=== PATIENT | female | born 1960 | race Hispanic/Latino ===

== ENCOUNTER 2019-03-05 13:13 | Emergency (ER) | payer SELFPAY ==
--- OUTSIDE RECORDS SUMMARY | 2019-03-05 13:15 | XMS REPORT ---
:1960 Author Organization [facility] Address [address] [place] [address] Dr. Estrada [address] [place] [id number] Care Team Providers Name Role Phone Unavailable Unavailable Unavailable Problems This patient has no known problems. Allergies, Adverse Reactions, Alerts This patient has no known allergies or adverse reactions. Medications This patient has no known medications.
[2019-03-05] MEDS ORDERED: HYDROCODONE/APAP 5/325 MG TAB ONE (13:38)
[2019-03-05] MEDS ORDERED: DIAZEPAM 2 MG TABLET ONE (13:39)
[2019-03-05] MEDS ORDERED: AMOX/K CLAV 875 MG TAB ONE ×2 (13:39→14:31)
[2019-03-05] MEDS ORDERED: TETANUS & DIPHTHERIA TOX,ADULT 0.5 ML VIAL ONE (13:40)
--- NOTE | 2019-03-05 14:11 | RAD REPORT ---
EXAM DESCRIPTION: RAD - Hand Right 3 View - 03/05/2019 2:03 pm CLINICAL HISTORY: PAIN Animal bite COMPARISON: No comparisons FINDINGS: No fracture or radiopaque foreign body is identified. No aggressive marrow lesion.
--- NOTE | 2019-03-05 14:57 | ER ---
Nurse's Notes [facility] Name: Helen Richardson Age: 58 yrs Sex: Female : 1960 Arrival Date: 03/05/2019 Time: 13:11 Bed 2 Private MD: Diagnosis: Unspecified injury of head;Fall on same level, unspecified;Bitten by dog;Laceration without foreign body of lower leg-upper right thigh, lateral thigh;Sprain of other part of right wrist and hand Presentation: 03/05 13:12 Presenting complaint: Patient states: was bitten by a dog on the RLE. Transition of sg care: patient was not received from another setting of care. Onset of symptoms was March 05, 2019. Risk Assessment: Do you want to hurt yourself or someone else? Patient reports no desire to harm self or others. Initial Sepsis Screen: Does the patient meet any 2 criteria? No. Patient's initial sepsis screen is negative. Does the patient have a suspected source of infection? No. Patient's initial sepsis screen is negative. Care prior to arrival: None. 13:12 Method Of Arrival: EMS: [facility] sg 13:12 Acuity: YOGESH 4 sg Historical: - Allergies: 13:18 No Known Allergies; sg - Home Meds: 13:18 Lisinopril Oral [Active]; sg - PMHx: 13:18 Hypertension; sg - PSHx: 13:18 None; sg - Immunization history:: Adult Immunizations not up to date, Last tetanus immunization: unknown. - Social history:: Smoking status: Patient/guardian denies using tobacco. - Ebola Screening: : Patient negative for fever greater than or equal to 101.5 degrees Fahrenheit, and additional compatible Ebola Virus Disease symptoms Patient denies exposure to infectious person Patient denies travel to an Ebola-affected area in the 21 days before illness onset No symptoms or risks identified at this time. Screenin:18 Abuse screen: Denies threats or abuse. Denies injuries from another. Nutritional sg screening: No deficits noted. Tuberculosis screening: No symptoms or risk factors identified. Never had TB. Fall Risk None identified. Assessment: 13:18 General: Appears in no apparent distress. well groomed, well developed, well nourished, sg Behavior is calm, cooperative, appropriate for age, drowsy. Pain: Complains of pain in lateral aspect of right thigh and right upper thigh Quality of pain is described as throbbing. Neuro: Level of Consciousness is awake, alert, obeys commands, Oriented to person, place, time, Dining Chair Seat Cushion Trimmer are equal bilaterally Moves all extremities. Speech is normal, Facial symmetry appears normal. Cardiovascular: Capillary refill is brisk in bilateral fingers Patient's skin is warm and dry. Chest pain is denied. Respiratory: Airway is patent Respiratory effort is even, unlabored, Respiratory pattern is regular, symmetrical. GI: No signs and/or symptoms were reported involving the gastrointestinal system. : No signs and/or symptoms were reported regarding the genitourinary system. EENT: No signs and/or symptoms were reported regarding the EENT system. Derm: Skin is healthy with good turgor, Skin is pink, warm \T\ dry. Wound noted lateral aspect of right thigh and right upper thigh Wound is dirty, dried blood noted to the wound. Musculoskeletal: Circulation, motion, and sensation intact. Range of motion: intact in all extremities, Swelling absent. Injury Description: Abrasion sustained to right upper thigh Bruise sustained to lateral aspect of right thigh and right upper thigh is purple, was sustained 30-60 minutes ago. Laceration sustained to lateral aspect of right thigh. Vital Signs: 13:18 Pulse 92; Resp 18; Temp 97.7; Pulse Ox 98% on R/A; Pain 8/10; sg 13:18 BP 159 / 86; sg ED Course: 13:11 Patient arrived in ED. sg 13:11 Destiny Grant FNP-C [facility]. snw 13:11 Jean Cho MD is Attending Physician. snw 13:11 Arm band placed on. sg 13:12 Triage completed. sg 13:18 Patient has correct armband on for positive identification. Bed in low position. Call sg light in reach. Side rails up X2. Pulse ox on. NIBP on. Warm blanket given. Head of bed elevated. 14:03 Hand Right 3 View XRAY In Process Unspecified. EDMS 14:35 Heriberto Cox, [place] is Primary Nurse. sg 14:52 Assist provider with laceration repair on lateral aspect of right thigh that was 2.5 sg cm. or less using pablo. Patient tolerated well. Dressings: non-adherent dressing x 1 right upper thigh. Velcro wrist splint applied to right wrist. Wound care: to laceration located on lateral aspect of right thigh was cleaned with Hibiclens, Patient tolerated well. 15:00 Patient did not have IV access during this emergency room visit. sg Administered Medications: 13:35 Drug: Hibiclens 4 % 1 application Route: Topical; Site: right thigh; sg 13:35 Drug: Valium 2 mg Route: PO; sg 13:35 Drug: [place] 5 mg-325 mg 1 tabs Route: PO; sg 13:40 Drug: Tetanus-Diphtheria Toxoid Adult 0.5 ml {Window Glazier: [employer]. Exp: sg 03/06/2021. Lot #: [id number]. } Route: IM; Site: left deltoid; 13:45 Drug: Augmentin 875 mg Route: PO; sg Outcome: 14:57 Discharge ordered by . snw 15:15 Discharged to home ambulatory, with family. sg 15:15 Condition: good 15:15 Discharge instructions given to patient, Instructed on discharge instructions, follow up and referral plans. medication usage, safety practices, wound care, Demonstrated understanding of instructions, follow-up care, medications, wound care, Prescriptions given X 2. 15:19 Patient left the ED. sg Signatures: Dispatcher [employer] EDHeriberto Potts RN RN Destiny Ortiz, FIBER DESIGNER-C FIBER DESIGNER-Csnw
--- NOTE | 2019-03-05 14:58 | EDPHYS ---
Physician Documentation [facility] Name: Helen Richardson Age: 58 yrs Sex: Female : 1960 Arrival Date: 03/05/2019 Time: 13:11 Bed 2 Private MD: Jean Lai HPI: 03/05 14:00 This 58 yrs old Female presents to ER via EMS with complaints of Dog Bite. snw 14:00 The patient was bitten on the right femoral area and right hip, by a dog, while trying snw to stop animals from fighting, at home. Onset: The symptoms/episode began/occurred suddenly, just prior to arrival. Animal information: The animal was reported to appear healthy. The animal is known and can be quarantined, Animal control has been notified. Secondary to the bite the patient reports an abrasion, a contusion, pain. Associated signs and symptoms: Pertinent positives: tenderness to occiput and right thumb s/p being pushed backward inside of home. Severity of symptoms: At their worst the symptoms were moderate. The patient has not experienced similar symptoms in the past. It is unknown whether or not the patient has recently seen a physician. Historical: - Allergies: 13:18 No Known Allergies; sg - Home Meds: 13:18 Lisinopril Oral [Active]; sg - PMHx: 13:18 Hypertension; sg - PSHx: 13:18 None; sg - Immunization history:: Adult Immunizations not up to date, Last tetanus immunization: unknown. - Social history:: Smoking status: Patient/guardian denies using tobacco. - Ebola Screening: : Patient negative for fever greater than or equal to 101.5 degrees Fahrenheit, and additional compatible Ebola Virus Disease symptoms Patient denies exposure to infectious person Patient denies travel to an Ebola-affected area in the 21 days before illness onset No symptoms or risks identified at this time. ROS: 13:58 Eyes: Negative for injury, pain, redness, and discharge, ENT: Negative for injury, snw pain, and discharge, Neck: Negative for injury, pain, and swelling, Cardiovascular: Negative for chest pain, palpitations, and edema, Respiratory: Negative for shortness of breath, cough, wheezing, and pleuritic chest pain, Abdomen/GI: Negative for abdominal pain, nausea, vomiting, diarrhea, and constipation, Back: Negative for injury and pain, : Negative for injury, bleeding, discharge, and swelling, Neuro: Negative for headache, weakness, numbness, tingling, and seizure, no LOC, dog pushed pt down and she struck occiput on floor 13:58 Constitutional: Positive for body aches. 13:58 MS/extremity: Positive for injury or acute deformity, pain, swelling, tenderness, of the lateral aspect of right hand. 13:58 Skin: Positive for dogbite to right upper and lateral thigh. Exam: 13:55 Head/Face: Normocephalic, atraumatic. Eyes: Pupils equal round and reactive to light, snw extra-ocular motions intact. Lids and lashes normal. Conjunctiva and sclera are non-icteric and not injected. Cornea within normal limits. Periorbital areas with no swelling, redness, or edema. ENT: Nares patent. No nasal discharge, no septal abnormalities noted. Tympanic membranes are normal and external auditory canals are clear. Oropharynx with no redness, swelling, or masses, exudates, or evidence of obstruction, uvula midline. Mucous membranes moist. Neck: Trachea midline, no thyromegaly or masses palpated, and no cervical lymphadenopathy. Supple, full range of motion without nuchal rigidity, or vertebral point tenderness. No Meningismus. Chest/axilla: Normal chest wall appearance and motion. Nontender with no deformity. No lesions are appreciated. Cardiovascular: Regular rate and rhythm with a normal S1 and S2. No gallops, murmurs, or rubs. Normal PMI, no JVD. No pulse deficits. Respiratory: Lungs have equal breath sounds bilaterally, clear to auscultation and percussion. No rales, rhonchi or wheezes noted. No increased work of breathing, no retractions or nasal flaring. Abdomen/GI: Soft, non-tender, with normal bowel sounds. No distension or tympany. No guarding or rebound. No evidence of tenderness throughout. Back: No spinal tenderness. No costovertebral tenderness. Full range of motion. Neuro: Awake and alert, GCS 15, oriented to person, place, time, and situation. Cranial nerves II-XII grossly intact. Motor strength 5/5 in all extremities. Sensory grossly intact. Cerebellar exam normal. Normal gait. Psych: Awake, alert, with orientation to person, place and time. Behavior, mood, and affect are within normal limits. 13:55 Constitutional: The patient appears alert, anxious, uncomfortable. 13:55 Musculoskeletal/extremity: Extremities: grossly normal except: noted in the lateral aspect of right hand: contusion, decreased ROM, ecchymosis, swelling, tenderness. 13:55 Skin: Appearance: normal except for affected area, Color: normal in color, injury, contusion(s), laceration(s), the wound is approximately 3 cm(s), with a depth of 2 cm(s), of the lateral aspect of right thigh, the second wound is approximately 2 cm(s), with a depth of .5 cm(s), of the right upper thigh. Vital Signs: 13:18 Pulse 92; Resp 18; Temp 97.7; Pulse Ox 98% on R/A; Pain 8/10; sg 13:18 BP 159 / 86; sg MDM: 13:12 Patient medically screened. snw 15:00 Data reviewed: vital signs, nurses notes. Data interpreted: Pulse oximetry: on room air snw is 98 %. Interpretation: normal. Counseling: I had a detailed discussion with the patient and/or guardian regarding: the historical points, exam findings, and any diagnostic results supporting the discharge/admit diagnosis, the presence of at least one elevated blood pressure reading (>120/80) during this emergency department visit, lab results, radiology results, the need for outpatient follow up, to return to the emergency department if symptoms worsen or persist or if there are any questions or concerns that arise at home. Response to treatment: the patient's symptoms have mildly improved after treatment. Special discussion: I have referred the patient to see his PCP for further evaluation of high blood pressure. I discussed in detail with the patient the higher chance of wound infection based on his presenting history. Based on the history and exam findings, there is no indication for further emergent testing or inpatient evaluation. I discussed with the patient/guardian the need to see the primary care provider for further evaluation of the symptoms. 03/05 13:27 Order name: Hand Right 3 View XRAY; Complete Time: 14:14 snw 03/05 14:14 Order name: Thumb Spica Splint: velcro (right); Complete Time: 15:14 snw Administered Medications: 13:35 Drug: Hibiclens 4 % 1 application Route: Topical; Site: right thigh; sg 13:35 Drug: Valium 2 mg Route: PO; sg 13:35 Drug: Energy 5 mg-325 mg 1 tabs Route: PO; sg 13:40 Drug: Tetanus-Diphtheria Toxoid Adult 0.5 ml {Special Needs Tutor: [employer]. Exp: sg 03/06/2021. Lot #: [id number]. } Route: IM; Site: left deltoid; 13:45 Drug: Augmentin 875 mg Route: PO; sg Disposition: 16:41 Co-signature as Attending Physician, Jean Cho MD I agree with the assessment and kat plan of care. Disposition: 03/05/19 14:57 Discharged to Home. Impression: Unspecified injury of head, Fall on same level, unspecified, Bitten by dog, Laceration without foreign body of lower leg - upper right thigh, lateral thigh, Sprain of other part of right wrist and hand. - Condition is Stable. - Discharge Instructions: Delayed Wound Closure, Fall Prevention in the Home, Laceration Care, Adult, Stitches, [place], or Adhesive Wound Closure, Wound Infection, VIS, Tetanus, Diphtheria (Td) - CDC, Wound Care, Head Injury, Adult, Oald-mv-Ziil, Animal Bite. - Prescriptions for Augmentin 875- 125 mg Oral Tablet - take 1 tablet by ORAL route every 12 hours for 10 days; 20 tablet. Diclofenac Sodium 75 mg Oral Tablet Sustained Release - take 1 tablet by ORAL route 2 times per day; 30 tablet. - Work release form, Medication Reconciliation Form, Thank You Letter, Antibiotic Education, Prescription Opioid Use form. - Follow up: Private Physician; When: 2 - 3 days; Reason: Recheck today's complaints, Re-evaluation by your physician. Follow up: Emergency Department; When: 10 - 14 days; Reason: Staple/Suture removal. Signatures: Dispatcher [employer] Heriberto Correia RN RN sg Anderson, Corey, MD MD cha Therrien, Shelly, RECONNAISSANCE MAN-C RECONNAISSANCE MAN-Csnw Shelli Gaston RN RN ss Corrections: (The following items were deleted from the chart) 14:59 14:57 03/05/2019 14:57 Discharged to Home. Impression: Unspecified injury of head; Fall snw on same level, unspecified; Bitten by dog; Laceration without foreign body of lower leg - upper right thigh, lateral thigh; Sprain of other part of right wrist and hand. Condition is Stable. Forms are Medication Reconciliation Form, Thank You Letter, Antibiotic Education, Prescription Opioid Use. Follow up: Emergency Department; When: As needed; Reason: Worsening of condition. Follow up: Private Physician; When: 2 - 3 days; Reason: Recheck today's complaints, Re-evaluation by your physician. snw 15:19 14:59 03/05/2019 14:57 Discharged to Home. Impression: Unspecified injury of head; Fall sg on same level, unspecified; Bitten by dog; Laceration without foreign body of lower leg - upper right thigh, lateral thigh; Sprain of other part of right wrist and hand. Condition is Stable. Discharge Instructions: Delayed Wound Closure, Fall Prevention in the Home, Laceration Care, Adult, Stitches, [place], or Adhesive Wound Closure, Wound Infection, VIS, Tetanus, Diphtheria (Td) - CDC, Wound Care, Head Injury, Adult, Fdja-ee-Nokt, Animal Bite. Prescriptions for Augmentin 875-125 mg Oral Tablet - take 1 tablet by ORAL route every 12 hours for 10 days; 20 tablet, Diclofenac Sodium 75 mg Oral Tablet Sustained Release - take 1 tablet by ORAL route 2 times per day; 30 tablet. and Forms are Medication Reconciliation Form, Thank You Letter, Antibiotic Education, Prescription Opioid Use, Work release form. Follow up: Private Physician; When: 2 - 3 days; Reason: Recheck today's complaints, Re-evaluation by your physician. Follow up: Emergency Department; When: 10 - 14 days; Reason: Staple/Suture removal. snw
[2019-03-05 15:34] VITALS: BP 159/86; TEMP 97.7; O2SAT 98
== END 2019-03-05 15:19 | disposition home or self-care (01) ==
LOC: ER 13:13
DX: S71.111A Laceration without foreign body, right thigh, initial encounter (principal); S63.501A Unspecified sprain of right wrist, initial encounter; S09.90XA Unspecified injury of head, initial encounter; W54.0XXA Bitten by dog, initial encounter; Y93.9 Activity, unspecified; Y92.9 Unspecified place or not applicable; W18.30XA Fall on same level, unspecified, initial encounter; Z23 Encounter for immunization; I10 Essential (primary) hypertension
CPT/HCPCS: 90471; 90714; 99284

== ENCOUNTER 2020-07-13 13:04 | Emergency (ER) | payer SELFPAY ==
--- OUTSIDE RECORDS SUMMARY | 2020-07-13 13:06 | XMS REPORT | Continuity of Care Document ---
:1960 Author Organization [facility] t Address [address] [place] [address] Care Team Providers Name Role Phone Doctor Unassigned, Name Attending Clinician Unavailable Problems This patient has no known problems. Allergies, Adverse Reactions, Alerts This patient has no known allergies or adverse reactions. Medications This patient has no known medications. Procedures This patient has no known procedures. Encounters Start End Encounter Admission Attending Care Care Encounter Source Date/Time Date/Time Type Type Clinicians Facility Department ID 2018-12-09 2018-12-09 Orders Doctor LINDSAY [id number] 00:00:00 00:00:00 Only UnassignedJEFE [id number] [facility] [id number] Results This patient has no known results.
[2020-07-13] MEDS ORDERED: LIDOCAINE 2% MPF 5 ML VIAL ONE (13:35)
--- NOTE | 2020-07-13 13:52 | ER ---
Nurse's Notes 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 Coronavirus ca1 screen: Client denies travel out of the [place] in the last 14 days. At this time, the client does not indicate any symptoms associated with coronavirus-19. Ebola Screen: Patient negative for fever greater than or equal to 101.5 degrees Fahrenheit, and additional compatible Ebola Virus Disease symptoms Patient denies exposure to infectious person. Patient denies travel to an Ebola-affected area in the 21 days before illness onset. No symptoms or risks identified at this time. Complicating Factors: There are no complicating factors for this patient. Initial Sepsis Screen: Does the patient meet any 2 criteria? No. Patient's initial sepsis screen is negative. Does the patient have a suspected source of infection? No. Patient's initial sepsis screen is negative. Risk Assessment: Do you want to hurt yourself or someone else? Patient reports no desire to harm self or others. Onset of symptoms was July 13, 2020. 13:14 Method Of Arrival: Ambulatory ca1 13:14 Acuity: YOGESH 4 ca1 Historical: - Allergies: 13:15 No Known Allergies; ca1 - PMHx: 13:15 Hypertension; High Cholesterol; ca1 - PSHx: 13:15 None; ca1 - Immunization history:: Client reports receiving the 1st dose of the Covid vaccine, Last tetanus immunization: < 5 years ago. - Social history:: Smoking status: Patient/guardian denies using tobacco. Screenin:42 Abuse screen: Denies threats or abuse. Denies injuries from another. Nutritional kg screening: No deficits noted. Tuberculosis screening: No symptoms or risk factors identified. Fall Risk None identified. No fall in past 12 months (0 pts). No secondary diagnosis (0 pts). No IV (0 pts). Ambulatory Aid- None/Bed Rest/Nurse Assist (0 pts). Gait- Normal/Bed Rest/Wheelchair (0 pts) Mental Status- Oriented to own ability (0 pts). Total Dockery Fall Scale indicates No Risk (0-24 pts). Assessment: 12:40 Injury Description: Laceration sustained to palmar aspect of middle phalanx of right kg little finger is clean, 0.5 to 2.5 cm long, bleeding moderately. 13:38 General: Appears uncomfortable, Behavior is calm, cooperative, appropriate for age, kg quiet. Pain: Complains of pain in palmar aspect of distal phalanx of right little finger, palmar aspect of middle phalanx of right little finger and Palmar aspect of proximal phalanx of right little finger Pain radiates to right hand Pain currently is 10 out of 10 on a pain scale. at worst was 10 out of 10 on a pain scale. level that patient reports is acceptable is 3 out of 10 on a pain scale. Quality of pain is described as aching, throbbing, Pain began 1 hour ago. Neuro: No deficits noted. Cardiovascular: No deficits noted. Respiratory: No deficits noted. GI: No deficits noted. : No deficits noted. EENT: No deficits noted. Derm: No deficits noted. Derm: Wound noted palmar aspect of middle phalanx of right little finger Wound is Laceration. Musculoskeletal: No deficits noted. 14:33 Reassessment: Patient appears in no apparent distress at this time. Patient and/or zb family updated on plan of care and expected duration. Pain level reassessed. Patient is alert, oriented x 3, equal unlabored respirations, skin warm/dry/pink. received verbal order to splint patients finger. patient also wanted medication for infection and pain. notified ecp and prescription ordered. Vital Signs: 13:16 Pulse 102; Resp 18 S; Temp 97.5(TE); Pulse Ox 98% on R/A; Weight 78.47 kg (R); Height 5 ca1 ft. 4 in. (162.56 cm) (R); Pain 10/10; 13:16 BP 130 / 76; ca1 13:16 Body Mass Index 29.70 (78.47 kg, 162.56 cm) ca1 ED Course: 13:06 Patient arrived in ED. rg4 13:08 Jean Vick PA is PHCP. cp 13:08 Malcolm White MD is Attending Physician. cp 13:15 Triage completed. ca1 13:15 Arm band placed on right wrist. ca1 13:26 Serena Ortiz is Primary Nurse. kg 13:42 Patient has correct armband on for positive identification. Bed in low position. Call kg light in reach. Side rails up X 1. Adult w/ patient. 14:34 Kwaku wrap to palmar aspect of distal phalanx of right little finger. zb 14:36 No provider procedures requiring assistance completed. Patient did not have IV access zb during this emergency room visit. Administered Medications: 13:26 Drug: Lidocaine (1 %) 5 ml Volume: 5 ml; Route: Infiltration; kg Outcome: 13:51 Discharge ordered by MD. cp 14:36 Discharged to home ambulatory, with family. zb 14:36 Condition: stable 14:36 Discharge instructions given to patient, family, Instructed on discharge instructions, follow up and referral plans. medication usage, Demonstrated understanding of instructions, follow-up care, medications, Prescriptions given X 2. 14:36 Patient left the ED. zb Signatures: Jean Vick PA PA cp Garcia, Rubi rg4 Grisel Higgins RN RN ca1 Jennifer Hernandes RN RN zb Serena Ortiz kg
--- NOTE | 2020-07-13 13:52 | EDPHYS ---
Physician Documentation [facility] Name: Helen Richardson Age: 59 yrs Sex: Female : 1960 Arrival Date: 07/13/2020 Time: 13:06 Bed 16 Private MD: ED Physician Malcolm White HPI: 07/13 13:20 This 59 yrs old Female presents to ER via Ambulatory with complaints of cp Laceration To Hand. 13:20 The patient has a laceration occurred at home, and there are no complicating factors. cp The laceration(s) is(are) located on the Palmar aspect of proximal phalanx of right little finger. Onset: The symptoms/episode began/occurred just prior to arrival. Historical: - Allergies: 13:15 No Known Allergies; ca1 - PMHx: 13:15 Hypertension; High Cholesterol; ca1 - PSHx: 13:15 None; ca1 - Immunization history:: Client reports receiving the 1st dose of the Covid vaccine, Last tetanus immunization: < 5 years ago. - Social history:: Smoking status: Patient/guardian denies using tobacco. ROS: 13:25 Skin: Positive for laceration(s), of the Palmar aspect of proximal phalanx of right cp little finger. 13:25 All other systems are negative. cp Exam: 13:33 Constitutional: The patient appears in no acute distress, alert, awake, well developed, cp well nourished. 13:33 Head/Face: Normocephalic, atraumatic. cp 13:33 Chest/axilla: Inspection: normal. 13:33 Cardiovascular: Rate: tachycardic. 13:33 Respiratory: the patient does not display signs of respiratory distress, Respirations: normal, no use of accessory muscles. 13:33 Musculoskeletal/extremity: ROM: full active range of motion, in the right small finger, Perfusion: the extremity is normally perfused throughout, Sensation intact. Tendon exam: specific tendon testing normal through active and passive range of motion 13:33 Skin: injury, laceration(s), the wound is approximately 1.5 cm(s), of the Palmar aspect of proximal phalanx of right little finger, that can be described as clean, no foreign body, linear, with mild bleeding. Vital Signs: 13:16 Pulse 102; Resp 18 S; Temp 97.5(TE); Pulse Ox 98% on R/A; Weight 78.47 kg (R); Height 5 ca1 ft. 4 in. (162.56 cm) (R); Pain 10/10; 13:16 BP 130 / 76; ca1 13:16 Body Mass Index 29.70 (78.47 kg, 162.56 cm) ca1 Laceration: 13:43 Wound Repair of 1.5cm ( 0.6in ) subcutaneous laceration to Palmar aspect of proximal cp phalanx of right little finger. Linear shaped.. Distal neuro/vascular/tendon intact. Anesthesia: Wound infiltrated with 2 mls of 2% lidocaine. Wound prep: Simple cleansing by me, Wound irrigation by me. Skin closed with 2 5-0 Prolene using simple sutures and sterile technique. Dressed with Bacitracin. Patient tolerated well. MDM: 13:15 Patient medically screened. cp 13:35 Differential diagnosis: superficial laceration, tendon injury, vascular injury. cp 13:35 Counseling: I had a detailed discussion with the patient and/or guardian regarding: the historical points, exam findings, and any diagnostic results supporting the discharge/admit diagnosis, to return to the emergency department if symptoms worsen or persist or if there are any questions or concerns that arise at home. Response to treatment: the patient's symptoms have markedly improved after treatment, and as a result, I will discharge patient. 13:46 Data reviewed: vital signs, nurses notes. 07/13 13:16 Order name: Dressing - Wound; Complete Time: 14:18 07/13 13:16 Order name: Gloves, Sterile; Complete Time: 14:18 07/13 13:16 Order name: Setup Suture Tray; Complete Time: 14:18 Administered Medications: 13:26 Drug: Lidocaine (1 %) 5 ml Volume: 5 ml; Route: Infiltration; kg Disposition: 14:00 Chart complete. 16:13 Co-signature as Attending Physician, Malcolm White MD. rn Disposition: 07/13/20 13:51 Discharged to Home. Impression: Laceration without foreign body of finger without damage to nail - right fifth finger. - Condition is Stable. - Discharge Instructions: Laceration Care, Adult. - Prescriptions for Keflex 500 mg Oral Capsule - take 1 capsule by ORAL route every 8 hours for 7 days; 21 capsule. Naprosyn 500 mg Oral Tablet - take 1 tablet by ORAL route 2 times per day take with food; 30 tablet. - Medication Reconciliation Form, Thank You Letter, Antibiotic Education, Prescription Opioid Use form. - Follow up: Private Physician; When: 1 week; Reason: Staple/Suture removal. - Problem is new. - Symptoms have improved. Signatures: Malcolm White MD MD rn Page, Corey, PA PA cp Acob, Cheryl, RN RN ca1 Brown, Zipporah, RN RN zb Graham, Kristen kg Corrections: (The following items were deleted from the chart) 14:36 13:51 07/13/2020 13:51 Discharged to Home. Impression: Laceration without foreign body zb of finger without damage to nail - right fifth finger. Condition is Stable. Forms are Medication Reconciliation Form, Thank You Letter, Antibiotic Education, Prescription Opioid Use. Follow up: Private Physician; When: 1 week; Reason: Staple/Suture removal. Problem is new. Symptoms have improved. cp
[2020-07-13 14:42] VITALS: BP 130/76; TEMP 97.5; O2SAT 98
== END 2020-07-13 14:36 | disposition home or self-care (01) ==
LOC: ER 13:04
PROC: 0JQJ0ZZ Repair Right Hand Subcutaneous Tissue and Fascia, Open Approach (ICD-10-PCS; principal; 2020-07-13)
DX: S61.216A Laceration without foreign body of right little finger without damage to nail, initial encounter (principal); I10 Essential (primary) hypertension; W45.8XXA Other foreign body or object entering through skin, initial encounter; Y92.009 Unspecified place in unspecified non-institutional (private) residence as the place of occurrence of the external cause
CPT/HCPCS: 99283

== ENCOUNTER 2023-06-27 10:37 | Emergency (ER) | payer SELFPAY ==
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
[2023-06-27] MEDS ORDERED: ONDANSETRON 4 MG/2 ML VIAL ONE (11:20)
[2023-06-27] MEDS ORDERED: KETOROLAC 30 MG/ML INJ ONE (11:20)
[2023-06-27] MEDS ORDERED: NA CHLORIDE 0.9% 1,000 ML ONE (11:20)
[2023-06-27 11:22] LABS: Absolute Basophils 0.1 K/uL (0-0.5); Absolute Eosinophils 0.1 K/uL (0-0.5); Absolute Lymphocytes (CBC) 1.3 K/uL (0.7-4.9); Absolute Monocytes 0.6 K/uL (0.1-1.3); Basophils % 0.6 % (0-1.3); Hematocrit 35.7 % (36.0-45.0); Hemoglobin 11.4 g/dL (12.0-15.0); Lymphocytes % 10.6 % (15.3-44.8); MCHC 31.9 g/dL (32.0-36.0); MCV 81.6 fL (80-100); MPV 7.4 fL (7.6-11.3); Monocytes % 5.2 % (3.3-12.3); Neutrophils % 82.6 % (41.7-73.7); Platelets 413 thou/uL (152-406); RBC Red Blood Cell Count 4.38 M/uL (3.86-4.86)
[2023-06-27 11:41] LABS: Albumin 3.2 g/dL (3.4-5.0); Albumin/Globulin Ratio 0.8 (1.1-1.8); Anion Gap 6.8 mEq/L (5.0-15.0); Bilirubin Total 0.8 mg/dL (0.2-1.0); Globulin 4.2 g/dL (2.3-3.5); Potassium 3.8 mEq/L (3.5-5.1); Protein, Total 7.4 g/dL (6.4-8.2); Troponin High Sensitivity 3.6 pg/mL (<58.9)
[2023-06-27 11:43] LABS: Specific Gravity 1.027 (1.005-1.030); Sqamous Epithelial <5 /HPF (None Seen); Urine Bacteria None Seen /HPF (<20); Urine Bilirubin NEGATIVE (Negative); Urine Blood 1+ (Negative); Urine Clarity Clear (Clear); Urine Color Yellow (Yellow); Urine Culture Reflex Order NOT NEEDED; Urine Glucose NEGATIVE (Negative); Urine Ketones NEGATIVE (Negative); Urine Microscopic Reflex YN ORDER UMIC; Urine Mucus 2+ /HPF (None Seen); Urine Nitrite NEGATIVE (Negative); Urine Protein TRACE (Negative); Urine Urobilinogen 1+ (Normal); Urine WBC <5 /HPF (<5)
--- NOTE | 2023-06-27 12:23 | RAD REPORT ---
EXAM DESCRIPTION: RAD - Chest Single View - 06/27/2023 11:59 am CLINICAL HISTORY: CHEST PAIN COMPARISON: CHEST SINGLE VIEW dated 07/11/2013; CHEST PA AND LAT 2 VIEW dated 02/16/2013; CHEST SINGL E VIEW dated 12/10/2011 FINDINGS: Lines: None. Lungs: No evidence of edema or pneumonia. Pleural: No significant pleural effusions or pneumothorax. Cardiac: The heart size is within normal limits. Mediastinum: Within normal limits. Bones: No acute fractures. Other: None IMPRESSION: No acute cardiopulmonary disease.
--- NOTE | 2023-06-27 12:50 | RAD REPORT ---
EXAM DESCRIPTION: CTAbdomen Pelvis W Contrast - 06/27/2023 12:42 pm CLINICAL HISTORY: Abdominal pain. ABD PAIN COMPARISON: No comparisons TECHNIQUE: Biphasic CT imaging of the abdomen and pelvis was performed with 100 ml non-ionic IV cont rast. All CT scans are performed using dose optimization technique as appropriate and may include automated exposure control or mA/KV adjustment according to patient size. FINDINGS: The lung bases are clear.Small hiatal hernia. The liver contains innumerable low-density masses likely representing metastatic disease. The largest is in the right lobe measuring 4.2 cm. The spleen, pancreas, adrenal glands and kidneys are within n ormal limits. No bowel obstruction, free air, free fluid or abscess. The appendix is normal. Irregular mass is joseph pected measuring approximately 4 cm involving the rectosigmoid colon. Multiple small lymph nodes are seen surrounding the irregular rectosigmoid mass. No suspicious bony findings. IMPRESSION: Approximate 4 cm irregular rectosigmoid mass is suspected. This is most compatible with malignancy. There is extensive liver metastatic disease. Recommend followup colonoscopy for further evaluation.
[2023-06-27 12:58] LABS: SARS-CoV-2 Antigen CONTROL BLUE LINE VIS/BG OK; SARS-CoV-2 Antigen Rapid Res Negative (Negative)
--- NOTE | 2023-06-27 14:05 | ER ---
Nurse's Notes [facility] Name: Helen Richardson Age: 62 yrs Sex: Female : 1960 Arrival Date: 06/27/2023 Time: 10:37 Bed 15 Private MD: Diagnosis: Rectal mass Presentation: 06/26 10:44 Chief complaint: Patient states: feels terrible, had fever , having diarrhea , iw everything hurts when I breath, my back, shoulders hurt when I breathe , feels dizzy , this started last year , symptoms got worse yesterday. Coronavirus screen: At this time, the client does not indicate any symptoms associated with coronavirus-19. Ebola Screen: Patient negative for fever greater than or equal to 101.5 degrees Fahrenheit, and additional compatible Ebola Virus Disease symptoms Patient denies exposure to infectious person. Patient denies travel to an Ebola-affected area in the 21 days before illness onset. No symptoms or risks identified at this time. Initial Sepsis Screen: Does the patient meet any 2 criteria? No. Patient's initial sepsis screen is negative. Does the patient have a suspected source of infection? No. Patient's initial sepsis screen is negative. Risk Assessment: Do you want to hurt yourself or someone else? Patient reports no desire to harm self or others. Onset of symptoms was June 26, 2023. 10:44 Method Of Arrival: Ambulatory iw 10:44 Acuity: YOGESH 3 iw Historical: - Allergies: 10:47 No Known Allergies; iw - PMHx: 10:47 High Cholesterol; Hypertension; iw - PSHx: 10:47 None; iw - Immunization history:: Adult Immunizations up to date, . - Infectious Disease History:: Denies. - Social history:: Smoking status: Patient denies any tobacco usage or history of. - Family history:: not pertinent. Screenin:24 [facility] ED Fall Risk Assessment (Adult) History of falling in the last 3 months, ld1 including since admission No falls in past 3 months (0 pts). Abuse screen: Denies threats or abuse. Denies injuries from another. Nutritional screening: No deficits noted. Tuberculosis screening: No symptoms or risk factors identified. Assessment: 12:00 Reassessment: Patient appears in no apparent distress at this time. No changes from ld1 previously documented assessment. Patient and/or family updated on plan of care and expected duration. Pain level reassessed. 13:45 Reassessment: Patient appears in no apparent distress at this time. No changes from ld1 previously documented assessment. Patient and/or family updated on plan of care and expected duration. Pain level reassessed. 14:24 Reassessment: Patient appears in no apparent distress at this time. No changes from ld1 previously documented assessment. Patient and/or family updated on plan of care and expected duration. Pain level reassessed. Vital Signs: 10:44 BP 125 / 74; Pulse 86; Resp 16; Temp 98.4; Pulse Ox 100% on R/A; iw 12:00 BP 132 / 72; Pulse 77; Resp 18; Pulse Ox 100% on R/A; ld1 13:45 BP 129 / 77; Pulse 84; Resp 18; Pulse Ox 100% on R/A; ld1 ED Course: 10:38 Patient arrived in ED. rg4 10:47 Triage completed. iw 10:48 Arm band placed on. iw 10:50 Gino Hollins MD is Attending Physician. rt 11:19 Influenza Screen (a \T\ B) Sent. bc6 11:19 SARS RAPID Sent. bc6 11:19 Troponin HS Sent. bc6 11:19 CBC with Diff Sent. bc6 11:19 CMP Sent. bc6 11:19 Lipase Sent. bc6 11:19 Initial lab(s) drawn, by me, sent to lab. Inserted saline lock: 20 gauge in right bc6 antecubital area, using aseptic technique. Blood collected. 11:26 Christy Thomson, RN is Primary Nurse. ld1 12:00 XRAY Chest (1 view) In Process Unspecified. EDMS 12:43 CT Abd/Pelvis - IV Contrast Only In Process Unspecified. EDMS 14:03 Barry Rankin MD is Referral Physician. rt 14:24 Patient has correct armband on for positive identification. Placed in gown. Bed in low ld1 position. Call light in reach. Side rails up X2. shaper operator on. Pulse ox on. NIBP on. Door closed. Noise minimized. Warm blanket given. 14:24 No provider procedures requiring assistance completed. IV discontinued, intact, ld1 bleeding controlled, No redness/swelling at site. Administered Medications: 11:26 Drug: NS 0.9% IV 1000 ml IV at 1 bolus Per protocol; 1000 mL bolus Route: IV; Rate: 1 ld1 bolus; Site: right antecubital; 11:26 Drug: TORadol - Ketorolac IVP 15 mg IVP once Route: IVP; Site: right antecubital; ld1 11:26 Drug: Ondansetron IVP 4 mg IVP once; over 2 minutes Route: IVP; Site: right antecubital;ld1 Medication: 14:25 VIS not applicable for this client. ld1 Outcome: 14:05 Discharge ordered by . rt 14:24 Discharged to home ambulatory, ld1 14:24 Condition: stable 14:24 Discharge instructions given to patient, Instructed on discharge instructions, follow up and referral plans. Demonstrated understanding of instructions, follow-up care, 14:25 Patient left the ED. ld1 Signatures: Dispatcher [employer] Emperatriz Perez RN RN iw Garcia, Rubi rg4 Christy Thomson RN RN ld1 Gino Hollins MD MD rt Joi Smart bc6 Corrections: (The following items were deleted from the chart) 10:48 10:47 PMHx: Anxiety; iw iw
--- NOTE | 2023-06-27 14:05 | EDPHYS ---
Physician Documentation [facility] Name: Helen Richardson Age: 62 yrs Sex: Female : 1960 Arrival Date: 06/27/2023 Time: 10:37 Bed 15 Private MD: ED Physician Gino Hollins HPI: 06/26 14:56 This 62 yrs old Female presents to ER via Ambulatory with complaints of Pain rt when Breathing. 14:56 Patient presents to the ED with multiple complaints have been present for about a year. rt Patient reports pain with taking a deep breath, mild shortness of breath and dizziness. Reports that she has had a diarrhea with intermittent abdominal pain, occasionally has blood in the stools. Denies other acute complaints at this time, symptoms are moderate in severity, no other aggravating or alleviating factors.. Historical: - Allergies: 10:47 No Known Allergies; iw - PMHx: 10:47 High Cholesterol; Hypertension; iw - PSHx: 10:47 None; iw - Immunization history:: Adult Immunizations up to date, . - Infectious Disease History:: Denies. - Social history:: Smoking status: Patient denies any tobacco usage or history of. - Family history:: not pertinent. ROS: 14:56 Constitutional: Negative for fever, chills, and weight loss, Cardiovascular: Negative rt for chest pain, palpitations, and edema, MS/Extremity: Negative for injury and deformity, Skin: Negative for injury, rash, and discoloration, 14:56 Respiratory: Positive for shortness of breath, Negative for cough, 14:56 Abdomen/GI: Positive for abdominal pain, diarrhea, 14:56 Neuro: Positive for dizziness, weakness, Exam: 14:56 Constitutional: This is a well developed, well nourished patient who is awake, alert, rt and in no acute distress. Head/Face: Normocephalic, atraumatic. Chest/axilla: Normal chest wall appearance and motion. Nontender with no deformity. No lesions are appreciated. Cardiovascular: Regular rate and rhythm with a normal S1 and S2. No gallops, murmurs, or rubs. Normal PMI, no JVD. No pulse deficits. Respiratory: Lungs have equal breath sounds bilaterally, clear to auscultation and percussion. No rales, rhonchi or wheezes noted. No increased work of breathing, no retractions or nasal flaring. Abdomen/GI: Soft, non-tender, with normal bowel sounds. No distension or tympany. No guarding or rebound. No evidence of tenderness throughout. MS/ Extremity: Pulses equal, no cyanosis. Neurovascular intact. Full, normal range of motion. 14:56 ECG was reviewed by the Attending Physician. Vital Signs: 10:44 BP 125 / 74; Pulse 86; Resp 16; Temp 98.4; Pulse Ox 100% on R/A; iw 12:00 BP 132 / 72; Pulse 77; Resp 18; Pulse Ox 100% on R/A; ld1 13:45 BP 129 / 77; Pulse 84; Resp 18; Pulse Ox 100% on R/A; ld1 MDM: 10:52 Patient medically screened. rt 14:56 Differential Diagnosis Rectal mass, anemia, electrolyte disturbance. Data reviewed: rt vital signs, nurses notes, lab test result(s), EKG, radiologic studies. Consideration of Admission/Observation Escalation of care including admission/observation considered. Discussed with patient there are no meet indications for admission to the hospital at this time, discussed at length regarding her rectal mass with likely liver mets. She was instructed to follow-up closely for colonoscopy.. Independent interpretation of the following test(s) in the Emergency Department CT Scan: My interpretation is No bowel obstruction seen on interpretation of CT scan images. Care significantly affected by the following chronic conditions: Hypertension. Counseling: I had a detailed discussion with the patient and/or guardian regarding the historical points, exam findings, and any diagnostic results supporting the discharge/admit diagnosis, lab results, radiology results, the need for outpatient follow up. 06/26 11:04 Order name: CBC with Diff; Complete Time: 12:52 rt 06/26 11:04 Order name: CMP; Complete Time: 12:52 rt 06/26 11:04 Order name: Lipase; Complete Time: 12:52 rt 06/26 11:04 Order name: Urinalysis w/ reflexes; Complete Time: 12:52 rt 06/26 11:05 Order name: Troponin HS; Complete Time: 12:52 rt 06/26 11:05 Order name: SARS RAPID; Complete Time: 13:00 rt 06/26 11:05 Order name: Influenza Screen (a \T\ B); Complete Time: 13:30 rt 06/26 11:05 Order name: CT Abd/Pelvis - IV Contrast Only; Complete Time: 12:52 rt 06/26 11:05 Order name: XRAY Chest (1 view); Complete Time: 12:52 rt 06/26 11:05 Order name: EKG; Complete Time: 11:07 rt 06/26 11:05 Order name: IV Saline Lock; Complete Time: 11: rt 06/26 11:05 Order name: Labs collected and sent; Complete Time: 11: rt 06/26 11:05 Order name: Cardiac monitoring; Complete Time: 11: rt 06/26 11:05 Order name: EKG - Nurse/Tech; Complete Time: 11: rt 06/26 11:05 Order name: O2 Per Protocol; Complete Time: 11: rt 06/26 11:05 Order name: O2 Sat Monitoring; Complete Time: 11:14 rt EC:56 Rate is 68 beats/min. Rhythm is regular, Normal Sinus Rhythm with No ectopy. QRS [place] rt is Normal. CA interval is normal. QRS interval is normal. QT interval is normal. No Q waves. T waves are Normal. No ST changes noted. Interpreted by me. Administered Medications: 11:26 Drug: NS 0.9% IV 1000 ml IV at 1 bolus Per protocol; 1000 mL bolus Route: IV; Rate: 1 ld1 bolus; Site: right antecubital; 11:26 Drug: TORadol - Ketorolac IVP 15 mg IVP once Route: IVP; Site: right antecubital; ld1 11:26 Drug: Ondansetron IVP 4 mg IVP once; over 2 minutes Route: IVP; Site: right antecubital;ld1 Disposition Summary: 06/27/23 14:05 Discharge Ordered Notes: Location: Home rt Problem: an ongoing problem rt Symptoms: are unchanged rt Condition: Stable rt Diagnosis - Rectal mass rt Followup: rt - With: Barry Rankin MD - When: 2 - 3 days - Reason: Discharge Instructions: - Discharge Summary Sheet rt - Colon Mass, Adult rt Forms: - Medication Reconciliation Form rt - Antibiotic Education rt - Prescription Opioid Use rt - Patient Portal Instructions rt - Leadership Thank You Letter rt Signatures: Dispatcher [employer] Emperatriz Perez RN RN iw Christy Thomson RN RN ld1 Gino Hollins MD MD rt Corrections: (The following items were deleted from the chart) 10:48 10:47 PMHx: Anxiety; iw iw
[2023-06-27 14:36] VITALS: BP 129/77; TEMP 98.4; O2SAT 100
--- NOTE | 2023-06-28 14:04 | EKG ---
Test Date: 2023-06-27 Test Time: 11:27:21 Sample Washer: AMELIA MEASUREMENT RESULTS: Intervals: Rate: 68 [place]: 124 QRSD: 82 QT: 358 QTc: 380 [place]: P: 51 [place]: 124 QRS: -7 T: 25 INTERPRETIVE STATEMENTS: Normal sinus rhythm Normal ECG Compared to ECG 07/11/2013 07:36:54 Left ventricular hypertrophy no longer present Electronically Signed On 06-28-23 14:00:03 CDT by Dominick Muñoz
== END 2023-06-27 14:25 | disposition home or self-care (01) ==
LOC: ER 10:37
DX: K62.89 Other specified diseases of anus and rectum (principal); C78.7 Secondary malignant neoplasm of liver and intrahepatic bile duct; Z11.52 Encounter for screening for COVID-19
CPT/HCPCS: 36415; 71045; 74177; 80053; 81001; 83690; 84484; 85025; 87804; 87811; 93005; J2405; J7030; Q9967

== ENCOUNTER 2023-08-16 14:42 | Emergency (ER) | payer SELFPAY ==
[2023-08-16 15:53] LABS: Absolute Basophils 0.1 K/uL (0-0.5); Absolute Lymphocytes (CBC) 1.5 K/uL (0.7-4.9); Absolute Monocytes 1.2 K/uL (0.1-1.3); Absolute Neutrophil 14.3 K/uL (1.8-8.0); Basophils % 0.6 % (0-1.3); Eosinophils % 0.2 % (0-4.4); Hematocrit 38.1 % (36.0-45.0); Hemoglobin 12.3 g/dL (12.0-15.0); Lymphocytes % 8.9 % (15.3-44.8); MCH 25.5 pg (27.0-35.0); MCHC 32.3 g/dL (32.0-36.0); MPV 6.7 fL (7.6-11.3); Monocytes % 6.9 % (3.3-12.3); Neutrophils % 83.4 % (41.7-73.7); Nucleated Red Blood Cells % 0.1 % (0-0); Platelets 692 thou/uL (152-406); RBC Red Blood Cell Count 4.82 M/uL (3.86-4.86); Red Cell Distribution Width 18.5 % (12.1-15.2)
[2023-08-16] MEDS ORDERED: ONDANSETRON 4 MG/2 ML VIAL ONE (15:55)
[2023-08-16] MEDS ORDERED: NA CHLORIDE 0.9% 1,000 ML ONE ×2 (15:56→19:21)
[2023-08-16 16:14] LABS: Albumin 3.3 g/dL (3.4-5.0); Albumin/Globulin Ratio 0.7 (1.1-1.8); Anion Gap 10.2 mEq/L (5.0-15.0); Bilirubin Total 0.9 mg/dL (0.2-1.0); Potassium 4.2 mEq/L (3.5-5.1); Protein, Total 8.3 g/dL (6.4-8.2)
--- NOTE | 2023-08-16 17:19 | RAD REPORT ---
EXAM DESCRIPTION: CT - Abdomen Pelvis W Contrast - 08/16/2023 4:48 pm CLINICAL HISTORY: Abdominal pain COMPARISON: August 09, 2023 TECHNIQUE: Computed axial tomography of the abdomen pelvis was obtained. 100 cc Isovue-300 was admin istered intravenously. Oral contrast was not requested which limits evaluation of bowel and appendix All CT scans are performed using dose optimization technique as appropriate and may include automated exposure control or mA/KV adjustment according to patient size. FINDINGS: Innumerable hepatic metastases. Portal vein patent. Spleen, pancreas, adrenals and kidneys unremarkable Rectosigmoid colon mass unchanged Marked thickening of the wall of descending colon consistent with colitis. Right ileostomy. No bowel obstruction IMPRESSION: Marked descending colon colitis
--- NOTE | 2023-08-16 18:20 | ER ---
Nurse's Notes [facility] Name: Helen Richardson Age: 62 yrs Sex: Female : 1960 Arrival Date: 08/16/2023 Time: 14:42 Bed 7 Private MD: Diagnosis: Colitis;Elevated white blood cell count Presentation: 08/15 15:07 Chief complaint: Patient states: N/V/D for 3-4 days. + LAM. Colostomy bag has very ll1 little output. Weak, dizzy, pale. Coronavirus screen: Client denies travel out of the [place] in the last 14 days. At this time, the client does not indicate any symptoms associated with coronavirus-19. Ebola Screen: Patient denies travel to an Ebola-affected area in the 21 days before illness onset. Initial Sepsis Screen: Does the patient meet any 2 criteria? No. Patient's initial sepsis screen is negative. Does the patient have a suspected source of infection? No. Patient's initial sepsis screen is negative. Risk Assessment: Do you want to hurt yourself or someone else? Patient reports no desire to harm self or others. Onset of symptoms was August 13, 2023. 15:07 Method Of Arrival: Ambulatory ll1 15:07 Acuity: YOGESH 2 ll1 Triage Assessment: 15:07 General: Appears uncomfortable, ill, Behavior is calm, cooperative, appropriate for ll1 age. General: Reports fatigue for. Pain: Complains of pain in head Quality of pain is described as aching, throbbing. GI: Reports lower abdominal pain, upper abdominal pain, bloating, diarrhea, nausea, no output in colostomy bag. Historical: - PMHx: 15:07 High Cholesterol; Hypertension; ll1 - PSHx: 15:07 colon surgery ileostomy (Hypertension); ll1 - Immunization history:: Adult Immunizations up to date. - Infectious Disease History:: Denies. - Social history:: Smoking status: Patient denies any tobacco usage or history of. Screenin:56 [facility] ED Fall Risk Assessment (Adult) History of falling in the last 3 months, db including since admission No falls in past 3 months (0 pts) Confusion or Disorientation No (0 pts) Intoxicated or Sedated No (0 pts) Impaired Gait No (0 pts) Mobility Assist Device Used No (0 pt) Altered Elimination No (0 pt) Score/Fall Risk Level 0 - 2 = Low Risk Oriented to surroundings, Maintained a safe environment. Abuse screen: Denies threats or abuse. Denies injuries from another. Nutritional screening: No deficits noted. Tuberculosis screenin:56 Tuberculosis screening: No symptoms or risk factors identified. db Assessment: 16:00 Reassessment: Patient appears in no apparent distress at this time. Patient and/or db family updated on plan of care and expected duration. Pain level reassessed. Patient is alert, oriented x 3, equal unlabored respirations, skin warm/dry/pink. General: Appears in no apparent distress. comfortable, Behavior is calm, cooperative. Pain: Complains of pain in head. Neuro: Level of Consciousness is awake, alert, obeys commands, Oriented to person, place, time, situation. Respiratory: Airway is patent Respiratory effort is even, unlabored, Respiratory pattern is regular, symmetrical. GI: Abdomen is flat, Reports diarrhea, nausea, vomiting. 16:00 Reassessment: Patient states feeling better. Patient states symptoms have improved. db 20:10 General: Appears in no apparent distress. Behavior is calm, cooperative. General: Pt kd3 notified of NPO status. Pt verbalizes understanding. . Neuro: Level of Consciousness is awake, alert, obeys commands, Oriented to person, place, time, situation. Respiratory: Airway is patent Trachea midline Respiratory effort is even, unlabored, Respiratory pattern is regular, symmetrical. 21:02 General: Pt independently ambulatory to the restroom and back and placed on continuous kd3 monitoring. 2nd abx started. . 22:04 General: Attempted to call report. On hold for 10 minutes. . kd3 08/16 02:18 General: Appears in no apparent distress. Behavior is calm, cooperative. Neuro: Level kd3 of Consciousness is awake, alert, obeys commands, Oriented to person, place, time, situation. Vital Signs: 08/15 15:07 BP 116 / 80; Pulse 113; Resp 18; Temp 97.4; Pulse Ox 98% ; Pain 10/10; ll1 15:50 BP 133 / 82; Pulse 101; Resp 16; Pulse Ox 98% ; db 16:00 BP 133 / 82; Pulse 101; Pulse Ox 98% on R/A; db 16:44 BP 149 / 74; Pulse 92; Resp 18; Pulse Ox 98% on R/A; db 17:32 BP 162 / 79; Pulse 95; Resp 15 S; Pulse Ox 97% on R/A; kc6 20:11 BP 124 / 72; Pulse 79; Resp 15; Pulse Ox 98% on R/A; kd3 21:03 BP 122 / 77; Pulse 77; Resp 19; Pulse Ox 98% on R/A; kd3 08/16 02:19 BP 121 / 78; Pulse 84; Resp 19; Pulse Ox 99% on R/A; kd3 08/15 15:07 Pain Scale: Adult ll1 ED Course: 08/15 14:45 Patient arrived in ED. mr 14:58 Keysha Rico FNP-C is PHCP. kb 14:58 Gino Hollins MD is Attending Physician. kb 15:09 Triage completed. ll1 15:09 Arm band placed on. ll1 15:16 Radiology exam delayed due to lab results not completed at this time. (BUN/Creatinine) nj IV insertion attempt and/or patient not having appropriate IV at this time. 15:44 CBC with Diff Sent. bc6 15:45 CMP Sent. bc6 15:45 Lipase Sent. bc6 15:45 Initial lab(s) drawn, by mn, sent to lab. Inserted saline lock: 22 gauge in left bc6 antecubital area, using aseptic technique. Blood collected. 15:47 Radiology exam delayed due to lab results not completed at this time. (BUN/Creatinine). nj 16:03 Yissel Sevilla, RN is Primary Nurse. db 16:50 CT Abd/Pelvis - IV Contrast Only In Process Unspecified. EDMS 16:57 Patient has correct armband on for positive identification. Bed in low position. Call db light in reach. Side rails up X 1. Provided Education on: LABS. Pulse ox on. NIBP on. Warm blanket given. 18:20 Initiated transfer with Anthony transfer worker from [facility]. jr12 20:11 Notified Nurse Practitioner and/or Physician Signal Intelligence/Electronic Warfare of called [facility] spoke with joshua Grullon, was told they are checking with louise for bed placement. 23:21 Pt accepted to [facility]. Accepting Dr.Afaq M \T\2039. Accepting admin Fili P \T\2110. lacho f number for nurse to nurse report [phone]. EMS to transfer pt, ETA 1hr. 08/16 01:15 Spoke with on duty , she said she did not have a truck to take the patient kmf now. I called [place] [facility] to transfer the pt. ETA 20 mins. 02:18 Inserted saline lock: 20 gauge in left upper arm, using aseptic technique. kd3 Administered Medications: 08/15 16:03 Drug: NS 0.9% IV 1000 ml IV at 1 bolus Per protocol; 1000 mL bolus Route: IV; Rate: 1 db bolus; Site: right antecubital; 16:03 Drug: Ondansetron IVP 4 mg IVP once; over 2 minutes Route: IVP; Site: right antecubital;db 19:59 Drug: metroNIDAZOLE IVPB 500 mg 100 ml IVPB at 200 ml/hr once over 30 mins Volume: 100 kd3 ml; Route: IVPB; Rate: 200 ml/hr; Infused Over: 30 mins; Site: right antecubital; 21:03 Follow up: IV Status: Completed infusion kd3 19:59 Drug: NS 0.9% IV 1000 ml IV at 100 ml/hr continuous Route: IV; Rate: 100 ml/hr; Site: kd3 right antecubital; 21:03 Drug: Ciprofloxacin IVPB 400 mg 200 ml IVPB once over 60 mins Volume: 200 ml; Route: kd3 IVPB; Infused Over: 60 mins; Site: right antecubital; Medication: 20:11 VIS not applicable for this client. kd3 Outcome: 18:19 ER care complete, transfer ordered by MD. jameson 08/16 02:19 Patient left the ED. kd3 Signatures: Dispatcher [employer] EDMS Keysha Rico, WINDOW COVERING SALES CONSULTANT-C WINDOW COVERING SALES CONSULTANT-Ckb SpeedyLolly, Reg Reg mr Ayden Mcgill Danya Trevino, [place]RA[place] RN llAilyn Tejada RN RN kd3 Sepideh Wilkins RN RN [email or web address] Yissel Sevilla, ISRAEL RN db Joi Smart [facility] Cynthia Sands Kelsey Maroul km Corrections: (The following items were deleted from the chart) 08/15 20:14 20:14 Inserted saline lock: kmf [facility] 20:15 20:14 EKG done, by ED staff, kmf kmf
--- NOTE | 2023-08-16 18:20 | EDPHYS ---
Physician Documentation [facility] Name: Helen Richardson Age: 62 yrs Sex: Female : 1960 Arrival Date: 08/16/2023 Time: 14:42 Bed 7 Private MD: ED Physician Gino Hollins HPI: 08/15 15:55 This 62 yrs old Female presents to ER via Ambulatory with complaints of kb Vomiting/Diarrhea, Headache, Weakness. 15:55 Pt is a 62 year old female who presents for abd pain, nausea, decreased appetite and kb diarrhea that started yesterday. States she was seen here on 07/08, diagnosed with colon cancer and sent to [facility]. States she had sugery there by Dr Borja with ileostomy placement. States she has had no output from colostomy since diarrhea started. Denies fever. . Historical: - PMHx: 15:07 High Cholesterol; Hypertension; ll1 - PSHx: 15:07 colon surgery ileostomy (Hypertension); ll1 - Immunization history:: Adult Immunizations up to date. - Infectious Disease History:: Denies. - Social history:: Smoking status: Patient denies any tobacco usage or history of. ROS: 15:55 Constitutional: As per HPI kb Exam: 15:55 Constitutional: This is a well developed, well nourished patient who is awake, alert, kb and in no acute distress. Head/Face: Normocephalic, atraumatic. ENT: Moist Mucous membranes Cardiovascular: Regular rate Respiratory: Respirations even and unlabored. No increased work of breathing. Talking in full sentences Skin: Warm, dry with normal turgor. Normal color. MS/ Extremity: Pulses equal, no cyanosis. Neurovascular intact. Full, normal range of motion. Neuro: Awake and alert, GCS 15, oriented to person, place, time, and situation. Moves all extremities. Normal gait. 15:55 Abdomen/GI: Inspection: Ileostomy to RLQ, Bowel sounds: Palpation: soft, in all quadrants, mild abdominal tenderness, in all quadrants, 20:18 ECG was reviewed by the Attending Physician. kb Vital Signs: 15:07 BP 116 / 80; Pulse 113; Resp 18; Temp 97.4; Pulse Ox 98% ; Pain 10/10; ll1 15:50 BP 133 / 82; Pulse 101; Resp 16; Pulse Ox 98% ; db 16:00 BP 133 / 82; Pulse 101; Pulse Ox 98% on R/A; db 16:44 BP 149 / 74; Pulse 92; Resp 18; Pulse Ox 98% on R/A; db 17:32 BP 162 / 79; Pulse 95; Resp 15 S; Pulse Ox 97% on R/A; kc6 20:11 BP 124 / 72; Pulse 79; Resp 15; Pulse Ox 98% on R/A; kd3 21:03 BP 122 / 77; Pulse 77; Resp 19; Pulse Ox 98% on R/A; kd3 08/16 02:19 BP 121 / 78; Pulse 84; Resp 19; Pulse Ox 99% on R/A; kd3 08/15 15:07 Pain Scale: Adult ll1 MDM: 08/15 14:58 Patient medically screened. kb 15:55 Data reviewed: vital signs, nurses notes. kb 21:14 Differential diagnosis: Nonspecific abd pain, diverticulitis, colitis. Consideration of kb Admission/Observation Escalation of care including admission/observation considered. pt will be transferred for continuity of care. Management of patient was discussed with the following: Dr Gunter, hospitalist at [facility], accepts pt for transfer. Historians other than the Patient: Daughter/Son: daughters. Counseling: I had a detailed discussion with the patient and/or guardian regarding the historical points, exam findings, and any diagnostic results supporting the discharge/admit diagnosis, lab results, radiology results, the need to transfer to another facility, [facility] does not immediately have the required specialist. 08/15 15:10 Order name: CBC with Diff; Complete Time: 15:54 kb 08/15 15:10 Order name: CMP; Complete Time: 16:23 kb 08/15 15:10 Order name: Lipase; Complete Time: 16:23 kb 08/15 15:10 Order name: Urinalysis w/ reflexes; Complete Time: 21:13 kb 08/15 17:29 Order name: Blood Culture Adult (2) kb 08/15 17:29 Order name: Lactate w/ 2H reflex if indic.; Complete Time: 18:50 kb 08/15 17:29 Order name: Protime (+inr); Complete Time: 18:53 kb 08/15 17:29 Order name: Ptt, Activated; Complete Time: 18:53 kb 08/15 15:10 Order name: CT Abd/Pelvis - IV Contrast Only; Complete Time: 17:23 kb 08/15 15:10 Order name: IV Saline Lock; Complete Time: 15:44 kb 08/15 15:10 Order name: Labs collected and sent; Complete Time: 15:44 kb 08/15 17:29 Order name: EKG - Nurse/Tech; Complete Time: 20:08 kb EC:18 Rate is 85 beats/min. Rhythm is regular. QRS [place] is Normal. IN interval is normal at kb 120 msec. QRS interval is normal at 80 msec. QT interval is normal at 433 msec. Administered Medications: 16:03 Drug: NS 0.9% IV 1000 ml IV at 1 bolus Per protocol; 1000 mL bolus Route: IV; Rate: 1 db bolus; Site: right antecubital; 16:03 Drug: Ondansetron IVP 4 mg IVP once; over 2 minutes Route: IVP; Site: right antecubital;db 19:59 Drug: metroNIDAZOLE IVPB 500 mg 100 ml IVPB at 200 ml/hr once over 30 mins Volume: 100 kd3 ml; Route: IVPB; Rate: 200 ml/hr; Infused Over: 30 mins; Site: right antecubital; 21:03 Follow up: IV Status: Completed infusion kd3 19:59 Drug: NS 0.9% IV 1000 ml IV at 100 ml/hr continuous Route: IV; Rate: 100 ml/hr; Site: kd3 right antecubital; 21:03 Drug: Ciprofloxacin IVPB 400 mg 200 ml IVPB once over 60 mins Volume: 200 ml; Route: kd3 IVPB; Infused Over: 60 mins; Site: right antecubital; Disposition: 08/16 09:00 Co-signature as Attending Physician, Gino Hollins MD I reviewed the patient's care rt provided by the Advanced Practice Provider and agree with the diagnosis and treatment plan. Disposition Summary: 08/16/23 18:19 Transfer Ordered Notes: Transfer Location: [facility] kb Reason: Higher level of care kb Condition: Stable kb Problem: new kb Symptoms: are unchanged kb Accepting Physician: Dr. Gunter(08/17/23 02:19) kd3 Diagnosis - Colitis kb - Elevated white blood cell count kb Forms: - Medication Reconciliation Form kb - SBAR form kb Signatures: Dispatcher [employer] EDKeysha Briseno, SATELLITE INSTALLER-C SATELLITE INSTALLER-Ckb Danya West, RN RN ll1 Ailyn Lopes, RN RN kd3 Yissel Sevilla, ISRA[place] RN db Gino Hollins MD MD rt Corrections: (The following items were deleted from the chart) 08/15 17:57 15:55 Pt is a 62 year old female who presents for abd pain, nausea, decreased appetite kb and diarrhea that started yesterday. States she was seen here on 08/08, diagnosed with colon cancer and sent to [facility]. States she had sugery there by Dr Borja with colostomy placement. States she has had no output from colostomy since diarrhea started. Denies fever. . kb 20:18 15:55 Abdomen/GI: Inspection: colostomy to RLQ, Bowel sounds: Palpation: soft, in all kb quadrants, mild abdominal tenderness, in all quadrants, kb 20:19 15:55 Pt is a 62 year old female who presents for abd pain, nausea, decreased appetite kb and diarrhea that started yesterday. States she was seen here on 07/08, diagnosed with colon cancer and sent to [facility]. States she had sugery there by Dr Borja with colostomy placement. States she has had no output from colostomy since diarrhea started. Denies fever. . kb 21:15 18:19 Dr jameson kb 08/16 02:19 08/15 21:15 Dr. Gunter kb kd3
[2023-08-16 18:51] LABS: PT Prothrombin Time 13.8 SECONDS (9.4-12.5); PTT, Activated Partial Thromb 30.9 SECONDS (24.3-36.9); Protime INR 1.26
[2023-08-16] MEDS ORDERED: METRONIDAZOLE 500mg IVPB 500 MG/100 ML BAG IV ONE (19:22)
[2023-08-16] MEDS ORDERED: Ciprofloxacin 200mg IV 400 MG/200 ML IV.SOLN. IV ONE (19:23)
[2023-08-16 20:58] LABS: Sqamous Epithelial <5 /HPF (None Seen); Urine Bacteria None Seen /HPF (<20); Urine Bilirubin NEGATIVE (Negative); Urine Blood Negative (Negative); Urine Clarity Clear (Clear); Urine Color Light-Yellow (Yellow); Urine Culture Reflex Order NOT NEEDED; Urine Glucose NEGATIVE (Negative); Urine Ketones 1+ (Negative); Urine Microscopic Reflex YN ORDER UMIC; Urine Mucus Slight /HPF (None Seen); Urine Nitrite NEGATIVE (Negative); Urine Protein TRACE (Negative); Urine RBC <5 /HPF (None Seen); Urine Urobilinogen Normal (Normal); Urine WBC <5 /HPF (<5)
[2023-08-16 21:05] LABS: Specific Gravity > 1.030 (1.005-1.030)
[2023-08-17 02:33] VITALS: TEMP 97.4
[2023-08-17 02:50] VITALS: BP 121/78; O2SAT 99
--- NOTE | 2023-08-18 14:09 | EKG ---
Test Date: 2023-08-16 Test Time: 20:07:28 Director [facility] Development [facility]: SEAN MEASUREMENT RESULTS: Intervals: Rate: 85 NM: 120 QRSD: 80 QT: 364 QTc: 433 [place]: P: 51 NM: 120 QRS: 6 T: 38 INTERPRETIVE STATEMENTS: Normal sinus rhythm Nonspecific ST and T wave abnormality Abnormal ECG Compared to ECG 07/09/2023 17:30:22 Possible ischemia no longer present Prolonged QT interval no longer present ST (T wave) deviation still present Electronically Signed On 08-18-23 14:06:31 CDT by Prashant Holt
== END 2023-08-17 02:19 | disposition short-term general hospital (02) ==
LOC: ER 14:42
DX: K52.9 Noninfective gastroenteritis and colitis, unspecified (principal); D72.829 Elevated white blood cell count, unspecified; Z85.038 Personal history of other malignant neoplasm of large intestine
CPT/HCPCS: 36415; 74177; 80053; 81001; 83605; 83690; 85025; 85610; 85730; 87040; 93005; 96365; 96375; 99284; J0744; J2405; J7030; Q9967

== ENCOUNTER 2023-10-16 17:00 | Emergency (ER) | payer OTHER ==
--- OUTSIDE RECORDS SUMMARY | 2023-10-16 17:04 | XMS REPORT | Clinical Summary ---
Author Name Unknown Organization [facility] [place] Address [address] [place] [address] Care Team Providers Care Distributed Energy Systems Consultant Name Role Phone Radha Frausto RN Unavailable [phone] Allergies Active Allergy Reactions Criticality Noted Date Comments Opioids - Morphine Analogues Other (See Comments) 09/12/2023 Hallucination Acetaminophen-Codeine Rash Low 09/12/2023 Medications Medication Sig Dispensed Refills Start Date End Date Status losartan (COZAAR) 50 mg tabletIndication s:hypertension Take 1 tablet (50 mg) by mouth daily. Active lovastatin (MEVACOR) 20 mg tabletIndication s:hyperlipidemia Take 1 tablet (20 mg) by mouth at bedtime. Active morphine (MS CONTIN) 15 mg ER tabletIndication s:Cancer associated pain Take 1 tablet (15 mg) by mouth every 12 (twelve) hours. 60 tablet 09/18/2023 Active oxyCODONE (ROXICODONE) 10 mg immediate release tabletIndication s:Cancer associated pain Take 1 tablet (10 mg) by mouth every 4 (four) hours as needed (pain and shortness of breath). 90 tablet 09/18/2023 Active polyethylene glycol (MIRALAX) 17 g packetIndication s:Intractable abdominal pain,Colon cancer,Nausea and vomiting Take 17 g by mouth daily. 09/20/2023 Active pantoprazole (PROTONIX) 40 mg EC tabletIndication s:Intractable abdominal pain,Colon cancer,Nausea and vomiting Take 1 tablet (40 mg) by mouth every morning before breakfast. 30 tablet 09/20/2023 Active topical paste menthol-white petrolatum-zinc oxide (REMEDY CALAZIME) 0.44-20.6 % psteIndications: Intractable abdominal pain,Colon cancer,Nausea and vomiting Apply topically to affected area(s) every 12 (twelve) hours as directed. 113 g 09/19/2023 Active atorvastatin (LIPITOR) 20 mg tabletIndication s:hyperlipidemia Take 1 tablet (20 mg) by mouth at bedtime. 09/11/2023 Discontinued Active Problems Problem Noted Date Diagnosed Date Adjustment disorder with mixed anxiety and depre ssed mood 10/16/2023 Antineoplastic chemotherapy induced anemia 09/14 Nausea and vomiting 09/15/2023 Severe protein-calorie malnutrition 09/15/2023 Leukocytosis 09/14/2023 Dyspnea on exertion 09/13/2023 Viral screening 09/13/2023 Carcinoma, NOS of colon, NOS 09/12/2023 Fever 09/12/2023 Cancer associated pain 09/12/2023 Family distress 09/12/2023 Slow transit constipation 09/12/2023 Stress and adjustment reaction 09/12/2023 Malignant neoplasm related fatigue 09/12/2023 Intractable abdominal pain 09/11/2023 Metastatic carcinoma to liver 09/11/2023 Hypertension 09/11/2023 Hyperlipidemia 09/11/2023 Encounters Date Type Department Care Team Description 10/03/2023 Telephone [facility] [address] [place] [address], 7th [place] [address] Radha Frausto, RN Follow-up 09/25/2023 Telephone [facility] - [facility] Oncology [address] [place] [address], 7th Floor [place] [phone] Radha Frausto, RN welcome call 09/25/2023 Orders Only [facility] [address] [place] [address], [facility] Floor Elevator [place] [phone] Maria Elena Eaton PA Adenocarcinoma, NOS of rectum, NOS (Primary Dx) 09/25/2023 Lab Requisition [facility] Yakov Ramos MD Marginean, Esmeralda Celia 09/24/2023 8:40 PM CDT Ancillary Procedure Image [facility] [address] [place] [address] Addy Hadley MD Cancer 09/24/2023 8:35 PM CDT Ancillary Procedure [facility] [address] [place] [address] Addy Hadley MD Cancer 09/24/2023 8:30 PM CDT Ancillary Procedure [facility] [address] [place] [address] Addy Hadley MD Cancer 09/24/2023 8:25 PM CDT Ancillary Procedure [facility] [address] [place] [address] 216[address] Addy Hadley MD Cancer 09/24/2023 8:20 PM CDT Ancillary Procedure [facility] [address] [place] [address] 02[address] Addy Hadley MD Cancer 09/24/2023 8:15 PM CDT Ancillary Procedure [facility] [address] [place] [address] Addy Hadley MD Cancer 09/24/2023 8:10 PM CDT Ancillary Procedure [facility] [address] [place] [address] Addy Hadley MD Cancer 09/24/2023 8:05 PM CDT Ancillary Procedure [facility] [address] [place] [address] 16641 Addy Hadley MD Cancer 09/24/2023 8:00 PM CDT Ancillary Procedure [facility] [address] [place] [address] 357[address] Addy Hadley MD Cancer 09/21/2023 Telephone [facility] [address] [place] [address] Amy Lutz architect naval Call 09/11/2023 11:12 AM CDT - 09/20/2023 11:43 AM CDT Hospital Encounter MAIN [address] [place] [address] Mitchel Torrez MD Feuer, MD Olman Holguin Brian, MD Viets, Jayne, MD Walton, Natalie, MD Khan, Nauman, MD Musaelyan, MD Fany Mckeon, MD Leonie Price, MD Addy Cancer associated pain (Primary Dx); Intractable abdominal pain; Dyspnea; Colon cancer; Metastatic carcinoma to liver; Nausea and vomiting Discharge Disposition: Home with Home-Health or Physical Therapy 09/11/2023 Travel after 10/16/2022 Medical History Medical History Date Comments Hypertension Hyperlipidemia Social History Tobacco Use Types Packs/Day Years Used Date Smoking Tobacco: Never Passive Smoke Exposure: Never Smokeless Tobacco: Never Tobacco Cessation:Counseling Given: No Comments:N/a Alcohol Use Standard Drinks/Week Comments Never 0 (1 standard drink = 0.6 oz pur e alcohol) n/a Sex and Gender Information Value Date Recorded Sex Assigned at Not on file Gender Identity Female 07/06/2023 4:11 PM CDT Sexual Orientation Straight 07/06/2023 4: 11 PM CDT Job Start Date Occupation Industry Not on file Not on file Not on file Obstetrics History Last Filed Vital Signs Vital Sign Reading Time Taken Comments Blood Pressure 147/76 09/20/2023 7:05 AM CDT Pulse 70 09/20/2023 7:05 AM CDT Temperature 36.8 C (98.2 F) 09/20/2023 7:05 AM CD T Respiratory Rate 16 09/20/2023 7:05 AM CDT Oxygen Saturation 93% 09/20/2023 7:05 AM CDT Inhaled Oxygen Concentration - - Weight 67.9 kg (149 lb 11.1 oz) 09/20/2023 5:05 AM CDT Height 162.6 cm (5' 4") 09/15/2023 1:05 AM CDT Body Mass Index 25.69 09/15/2023 1:05 AM CDT Plan of Treatment Health Maintenance Due Date Last Done Comments COVID-19 Vaccine (2022-2 4 season) 2022 Influenza Vaccine 10/21/2023 Pneumococcal Vaccine: Pediat rics (0 to 5 Years) and At-Risk Patients (6 to 64 Years) Aged Out No longer eligi ble based on patient's age to complete this topic Procedures Procedure Name Priority Date/Time Associated Diagnosis Comments .CBC Routine 09/20/2023 4:41 AM CDT MAGNESIUM LEVEL Routine 09/20/2023 4:41 AM CDT PHOSPHORUS LEVEL Routine 09/20/2023 4:41 AM CDT BASIC METABOLIC PANEL, CALCIUM TOTAL Routine 09/20/2023 4:41 AM CDT COMPLETE BLOOD COUNT W/ DIFFERENTIAL Routine 09/20/2023 4:41 AM CDT .CBC Routine 09/19/2023 4:37 AM CDT MAGNESIUM LEVEL Routine 09/19/2023 4:37 AM CDT PHOSPHORUS LEVEL Routine 09/19/2023 4:37 AM CDT BASIC METABOLIC PANEL, CALCIUM TOTAL Routine 09/19/2023 4:37 AM CDT COMPLETE BLOOD COUNT W/ DIFFERENTIAL Routine 09/19/2023 4:37 AM CDT .CBC Routine 09/18/2023 1:27 AM CDT MAGNESIUM LEVEL Routine 09/18/2023 1:27 AM CDT PHOSPHORUS LEVEL Routine 09/18/2023 1:27 AM CDT BASIC METABOLIC PANEL, CALCIUM TOTAL Routine 09/18/2023 1:27 AM CDT COMPLETE BLOOD COUNT W/ DIFFERENTIAL Routine 09/18/2023 1:27 AM CDT POTASSIUM LEVEL Routine 09/17/2023 11:06 AM CDT .CBC Routine 09/17/2023 3:49 AM CDT MAGNESIUM LEVEL Routine 09/17/2023 3:49 AM CDT PHOSPHORUS LEVEL Routine 09/17/2023 3:49 AM CDT BASIC METABOLIC PANEL, CALCIUM TOTAL Routine 09/17/2023 3:49 AM CDT COMPLETE BLOOD COUNT W/ DIFFERENTIAL Routine 09/17/2023 3:49 AM CDT FREE THYROXINE Add-On 09/16/2023 6:52 AM CDT CORTISOL, TOTAL Add-On 09/16/2023 6:52 AM CDT THYROID STIMULATING HORMONE Add-On 09/16/2023 6:52 AM CDT HEPATIC FUNCTION PANEL Add-On 6:52 AM CDT .CBC Routine 09/16/2023 6:52 AM CDT MAGNESIUM LEVEL Routine 09/16/2023 6:52 AM CDT PHOSPHORUS LEVEL Routine 09/16/2023 6:52 AM CDT BASIC METABOLIC PANEL, CALCIUM TOTAL Routine 09/16/2023 6:52 AM CDT COMPLETE BLOOD COUNT W/ DIFFERENTIAL Routine 09/16/2023 6:52 AM CDT TRANSFUSE RED BLOOD CELLS Routine 09/15/2023 2:34 PM CDT CONFIRM ABORH TYPE Routine 09/15/2023 9: 14 AM CDT TYPE AND SCREEN Routine 09/15/2023 9:13 AM CDT PREPARE RBC Routine 09/15/2023 5:26 AM CDT PERIPHERAL SMR FOR DOC REVIEW Add-On 09/15/2023 3:30 AM CDT RETICULOCYTE COUNT AUTOMATED Add-On 09/15/2023 3:30 AM CDT FERRITIN Add-On 09/15/2023 3:30 AM CDT TRANSFERRIN Add-On 09/15/2023 3:30 AM CDT IRON LEVEL Add-On 09/15/2023 3:30 AM CDT DIFFERENTIAL Routine 09/15/2023 3:30 AM CDT .CBC Routine 09/15/2023 3:30 AM CDT MAGNESIUM LEVEL Routine 09/15/2023 3:30 AM CDT PHOSPHORUS LEVEL Routine 09/15/2023 3:30 AM CDT BASIC METABOLIC PANEL, CALCIUM TOTAL Routine 09/15/2023 3:30 AM CDT COMPLETE BLOOD COUNT W/ DIFFERENTIAL Routine 09/15/2023 3:30 AM CDT MRSA SCREENING CULTURE Routine 4:19 PM CDT VANCOMYCIN TROUGH Timed Study 09/14/2023 12: 55 PM CDT ECHOCARDIOGRAM 2D COMPLETE Routine 09/14/2023 10:28 AM CDT .CBC Routine 09/14/2023 5:11 AM CDT HIV 1/2 ANTIGEN/ANTIBODY, FOURTH GEN W/RFL Routine 09/14/2023 5:11 AM CDT MAGNESIUM LEVEL Routine 09/14/2023 5:11 AM CDT PHOSPHORUS LEVEL Routine 09/14/2023 5:11 AM CDT BASIC METABOLIC PANEL, CALCIUM TOTAL Routine 09/14/2023 5:11 AM CDT COMPLETE BLOOD COUNT W/ DIFFERENTIAL Routine 09/14/2023 5:11 AM CDT HEPATITIS C VIRUS ANTIBODY Routine 09/14/2023 5:11 AM CDT HEPATITIS B CORE ANTIBODY Routine 09/14/2023 5:11 AM CDT HEPATITIS B SURFACE ANTIGEN Routine 09/14/2023 5:11 AM CDT HEPATITIS B SURFACE ANTIBODY Routine 09/14/2023 5:11 AM CDT URINALYSIS MICROSCOPIC EXAM STAT 09/13/2023 6:05 PM CDT URINALYSIS WITH MICROSCOPIC IF INDICATED STAT 09/13/2023 6:05 PM CDT US LIVER Routine 09/13/2023 5:14 PM CDT LACTIC ACID, VENOUS Routine 09/13/2023 1 0:35 AM CDT BLOOD CULTURE STAT 09/13/2023 10:35 AM CDT .CBC Routine 09/13/2023 3:19 AM CDT HC PROCALCITONIN (PCT) Routine 3:19 AM CDT MAGNESIUM LEVEL Routine 09/13/2023 3:19 AM CDT PHOSPHORUS LEVEL Routine 09/13/2023 3:19 AM CDT BASIC METABOLIC PANEL, CALCIUM TOTAL Routine 09/13/2023 3:19 AM CDT COMPLETE BLOOD COUNT W/ DIFFERENTIAL Routine 09/13/2023 3:19 AM CDT URINE CULTURE Routine 09/13/2023 1:02 AM CDT GASTROINTESTINAL MULTIPLEX PCR PANEL Routine 09/12/2023 4:59 PM CDT C. DIFFICILE DNA DETECTION Routine 09/12/2023 4:59 PM CDT URINALYSIS WITH MICROSCOPIC Routine 09/12/2023 4:31 PM CDT XR CHEST 1 VW STAT 09/12/2023 1:48 PM CDT LACTIC ACID, VENOUS Routine 09/12/2023 1 :08 PM CDT HC PROCALCITONIN (PCT) Routine 1:08 PM CDT BLOOD CULTURE Routine 09/12/2023 1:08 PM CDT RESPIRATORY MULTIPLEX PCR PANEL, NASOPHARYNGEAL SWAB Routine 09/12/2023 12:55 PM CDT .CBC Routine 09/12/2023 3:52 AM CDT COMPREHENSIVE METABOLIC PANEL Routine 09/12/2023 3:52 AM CDT COMPLETE BLOOD COUNT W/ DIFFERENTIAL Routine 09/12/2023 3:52 AM CDT URINALYSIS WITH MICROSCOPIC IF INDICATED Routine 09/11/2023 4:[address] ABDOMEN PELVIS W CONTRAST STAT 09/11/2023 2:[address] CHEST PULMONARY EMBOLISM W CONTRAST STAT 09/11/2023 2:18 PM CDT XR ABDOMEN AP Routine 09/11/2023 12:09 PM CDT .CBC Routine 09/11/2023 11:31 AM CDT LIPASE LEVEL Routine 09/11/2023 11:31 AM CDT AMYLASE LEVEL Routine 09/11/2023 11:31 AM CDT LACTATE DEHYDROGENASE Routine 09/11/2023 11:31 AM CDT FRACTIONATED BILIRUBIN Routine 11:31 AM CDT PHOSPHORUS LEVEL Routine 09/11/2023 11:3 1 AM CDT MAGNESIUM LEVEL Routine 09/11/2023 11:31 AM CDT COMPREHENSIVE METABOLIC PANEL Routine 09/11/2023 11:31 AM CDT COMPLETE BLOOD COUNT W/ DIFFERENTIAL Routine 09/11/2023 11:[address] ABDOMEN AND PELVIS Routine 09/08/2023 4:05 PM CDT Cancer OSI CT ABDOMEN AND PELVIS Routine 08/16/2023 4:05 PM CDT Cancer OSI MRI PELVIS Routine 07/24/2023 4:06 PM CDT Cancer OSI CT ABDOMEN AND PELVIS Routine 07/21/2023 4:06 PM CDT Cancer OSI CT ABDOMEN AND PELVIS Routine 07/17/2023 4:06 PM CDT Cancer OSI MRI PELVIS Routine 07/13/2023 4:06 PM CDT Cancer OSI MRI PELVIS Routine 07/13/2023 4:06 PM CDT Cancer OSI CT CHEST Routine 07/12/2023 4:07 PM CDT Cancer PATHOLOGY OUTSIDE INTERPRETATION Routine 07/11/2023 OSI CHEST Routine 07/10/2023 4:07 PM CDT Cancer after 10/16/2022 Results * (ABNORMAL) .CBC (09/20/2023 4:41 AM CDT) Only the most recent of10 resultswithin the time period is included. White Blood Cell 10.4 4.1 - 10.5 K/uL 09/20/2023 4:53 AM T [facility] Red Blood Cell 3.72(L) 3.99 - 5.46 M/uL 09/20/2023 4:53 AM CDT [facility] Hemoglobin 9.7(L) 12.2 - 15.3 g/dL 09/20/2023 4:53 AM T [facility] Hematocrit 30.7(L) 36.4 - 46.8 % 09/20/2023 4:53 AM CDT [facility] Mean Cell Volume 83 82 - 99 fL 09/20/2023 4:53 AM T [facility] Mean Cell Hemoglobin 26.1(L) 26.6 - 33.2 pg 09/20/2023 4:53 AM CDT [facility] Mean Cell Hemoglobin Concentration 31.6 31.1 - 35.2 g/dL 09/20/2023 4:53 AM T [facility] RDW-SD 54.4(H) 37.5 - 49.7 fL 09/20/2023 4:53 AM T [facility] Red Cell Diameter Width 18.5(H) 11.6 - 15.5 % 09/20/2023 4:53 AM T [facility] Platelet 604(H) 160 - 397 K/uL 09/20/2023 4:53 AM T [facility] Mean Platelet Volume 8.9(L) 9.1 - 12.6 fL 09/20/2023 4:53 AM T [facility] INRBC 0.0 0.0 - 0.1 /100 WBC 09/20/2023 4:53 AM [facility] Comment: The INRBC (instrument NRBC) value reflects the enumeration of nucleated red blood cells contained in a 200uL sample of whole blood analyzed by the instrument. This value may differ from the NRBC value reported in a manual differential, which is based on a 100 cell differential. Neutrophil % 68.4 43.2 - 72.7 % 09/20/2023 4:53 AM CDT [facility] Lymphocyte % 15.9(L) 16.8 - 46.2 % 09/20/2023 4:53 AM CDT [facility] Monocyte % 8.1 5.1 - 12.5 % 09/20/2023 4:53 AM CDT [facility] Eosinophil % 6.4(H) 0.4 - 6.3 % 09/20/2023 4:53 AM CDT [facility] Basophil % 0.6 0.2 - 1.4 % 09/20/2023 4:53 AM CDT [facility] IGRE % 0.6 0.1 - 1.5 % 09/20/2023 4:53 AM CDT [facility] Comment:The IGRE% includes M etamyelocytes, Myelocytes and Promyelocytes. Neutrophil Abs 7.13 1.95 - 7.25 K/uL 09/20/2023 4:53 AM CDT [facility] Lymphocyte Abs 1.66 1.01 - 3.24 K/uL 09/20/2023 4:53 AM CDT [facility] Monocyte Abs 0.84 0.24 - 0.85 K/uL 09/20/2023 4:53 AM CDT [facility] Eosinophil Abs 0.67(H) 0.02 - 0.50 K/uL 09/20/2023 4:53 AM CDT [facility] Basophil Abs 0.06 0.02 - 0.09 K/uL 09/20/2023 4:53 AM CDT [facility] IG Abs 0.06 0.01 - 0.12 K/uL 09/20/2023 4:53 AM CDT [facility] Blood Peripheral blood specimen / Unknown Venipuncture / Unknown 09/20/2023 4:41 AM CDT 09/20/2023 4:49 AM CDT Chilo David PA-C LAB BLOOD ORDERABLE S [facility] Unless otherwise noted, all lab tests performed by: Division of Pathology and Laboratory Medicine [address] [place] [address] * (ABNORMAL) Basic Metabolic Panel- Total Calcium (09/20/2023 4:41 AM CDT) Only the most recent of8 resultswithin the time period is included. eGFR 107 >=60 mL/min/1. 73 sq. m 09/20/2023 5:19 AM CDT [facility] Comment: The eGFRcr is calculated with the 2020 CKD-EPI creatinine equation using creatinine, patient's age, and sex for adults 18 years of age and older. Other factors, especially muscle mass, may affect accuracy and need to be considered. According to the Kidney Disease: Improving Global Outcomes (KDIGO) CKD Work Group 2012 Clinical Practice Guideline, chronic kidney disease (CKD) is defined as the abnormalities of kidney structure or function, present for more than 3 months, with implications for health. CKD should be classified by cause, GFR category, and albuminuria category. KDIGO guidelines provide the following GFR categories. Stage / Description / GFR mL/min/1.73 m2: G1* / Normal or high / >= 90 G2* / Mildly decreased / 60-89 G3a / Mildly to moderately decreased / 45-59 G3b / Moderately to severely decreased / 30-44 G4 / Severely decreased / 15-29 G5 / Kidney failure / <15 *In the absence of evidence of kidney damage, neither G1 nor G2 fulfill criteria for CKD. Calcium Level Total 8.7 8.2 - 10.2 mg/dL 09/20/2023 5:19 AM CDT [facility] Sodium Level 140 136 - 145 mmol/L 09/20/2023 5:19 AM CDT [facility] Potassium Level 4.1 3.4 - 4.5 mmol/L 09/20/2023 5:19 AM CDT [facility] Chloride 103 98 - 107 mmol/L 09/20/2023 5:19 AM CDT [facility] CO2 29 22 - 29 mmol/L 09/20/2023 5:19 AM CDT [facility] Anion Gap 8 4 - 14 mmol/L 09/20/2023 5:19 AM CDT [facility] Creatinine 0.50(L) 0.51 - 0.95 mg/dL 09/20/2023 5:19 AM CDT [facility] BUN 4(L) 6 - 23 mg/dL 09/20/2023 5:19 AM CDT [facility] Glucose Level 101(H) 70 - 99 mg/dL 09/20/2023 5:19 AM CDT [facility] Comment: Effective 09/15/15, the glucose reference intervals have been updated based on [place] Diabetes Association guidelines (Standards of Medical Care in Diabetes 2016. Diabetes Care 2016; 39: S13-S22). Fasting blood glucose: Normal: 70-99 mg/dL Impaired fasting glucose (increased risk for diabetes or pre-diabetes): 100-125 mg/dL Diabetes mellitus: >/=126 mg/dL Random blood glucose: Normal: 70-199 mg/dL Note: Random glucose >100 mg/dL is associated with increased risk for diabetes. Blood Peripheral blood specimen / Unknown Venipuncture / Unknown 09/20/2023 4:41 AM CDT 09/20/2023 4:49 AM CDT JULIO Edgar APRN LAB BLOOD OR DERABLES Performing Organization Address City/[facility] Co de Phone Number [facility] Unless otherwise noted, all lab tests performed by: Division of Pathology and Laboratory Medicine [address] [place] [id number] * Phosphorus Level (09/20/2023 4:41 AM CDT) Only the most recent of9 resultswithin the time period is included. Phosphorus Level 2.9 2.5 - 4.5 mg/dL 09/20/2023 5:19 AM CDT [facility] Blood Peripheral blood specimen / Unknown Venipuncture / Unknown 09/20/2023 4:41 AM CDT 09/20/2023 4:49 AM CDT Ban Bills APRN,AGASNOWP LAB BLOOD OR DERABLES Performing Organization Address City/[facility]/ZIP Co de Phone Number [facility] Unless otherwise noted, all lab tests performed by: Division of Pathology and Laboratory Medicine [address] [place] [phone] * Magnesium Level (09/20/2023 4:41 AM CDT) Only the most recent of9 resultswithin the time period is included. Magnesium Level 1.9 1.6 - 2.6 mg/dL 09/20/2023 5:19 AM CDT [facility] Blood Peripheral blood specimen / Unknown Venipuncture / Unknown 09/20/2023 4:41 AM CDT 09/20/2023 4:49 AM CDT Ban Bills GEODETIC ENGINEER,AGACNP LAB BLOOD OR DERABLES Performing Organization Address City/[facility]/ZIP Co de Phone Number [facility] Unless otherwise noted, all lab tests performed by: Division of Pathology and Laboratory Medicine [address] [place] [phone] * (ABNORMAL) Potassium Level (09/17/2023 11:06 AM CDT) [facility] Potassium Level 3.1(L) 3.4 - 4.5 mmol/L 09/17/2023 11:36 AM CDT [facility] Blood Peripheral blood specimen / Unknown Venipuncture / Unknown 09/17/2023 11:06 AM CDT 09/17/2023 11:13 AM CDT Narrative [facility] - 09/17/2023 11:36 AM CDT Reference range established based on adult population Deanna Villegas APRN LAB BLOOD ORD ERABLES [facility] Unless otherwise noted, all lab tests performed by: Division of Pathology and Laboratory Medicine [address] [place] [phone] * (ABNORMAL) Hepatic Function Panel (09/16/2023 6:52 AM CDT) Pathologist [facility] Bilirubin Total 0.8 0.0 - 1.2 mg/dL 09/16/2023 5:27 PM CDT [facility] Comment:Indocyanine Green (I CG) may cause falsely elevated bilirubin results. Total and direct bilirubin must not be measured from samples containing indocyanine green. False elevation of total bilirubin can be seen in patients with IgG concentrations above 28 g/L. Bilirubin Direct 0.4(H) 0.0 - 0.3 mg/dL 09/16/2023 5:27 PM CDT [facility] Comment:Indocyanine Green (I CG) may cause falsely elevated bilirubin results. Total and direct bilirubin must not be measured from samples containing indocyanine green. Bilirubin Indirect 0.4 0.0 - 0.9 mg/dL 09/16/2023 5:27 PM CDT [facility] Tot Protein 5.6(L) 6.4 - 8.3 gm/dL 09/16/2023 5:27 PM CDT [facility] Alkaline Phosphatase 269(H) 35 - 104 U/L 09/16/2023 5:27 PM CDT [facility] Albumin Level 2.5(L) 3.5 - 5.2 gm/dL 09/16/2023 5:27 PM CDT [facility] AST 22 <=32 U/L 09/16/2023 5:27 PM CDT [facility] ALT 20 <=33 U/L 09/16/2023 5:27 PM CDT [facility] Blood Peripheral blood specimen / Unknown Venipuncture / Unknown 09/16/2023 6:52 AM CDT 09/16/2023 7:36 AM CDT He Soares MD LAB BLOOD ORDERABLES [facility] Unless otherwise noted, all lab tests performed by: Division of Pathology and Laboratory Medicine [address] [place] [phone] * (ABNORMAL) TSH (09/16/2023 6:52 AM CDT) Thyroid Stimulating Hormone 8.43(H) 0.27 - 4.20 mcunit/mL 09/16/2023 6:20 PM CDT [facility] Blood Peripheral blood specimen / Unknown Venipuncture / Unknown 09/16/2023 6:52 AM CDT 09/16/2023 7:36 AM CDT He Soares MD LAB BLOOD ORDERABLES [facility] Unless otherwise noted, all lab tests performed by: Division of Pathology and Laboratory Medicine [address] [place] [id number] * Free T4 (09/16/2023 6:52 AM CDT) T4 (Thyroxine) Free 1.33 0.93 - 1.70 ng/dL 09/16/2023 6:20 PM CDT [facility] Blood Peripheral blood specimen / Unknown Venipuncture / Unknown 09/16/2023 6:52 AM CDT 09/16/2023 7:36 AM CDT He Soares MD LAB BLOOD ORDERABLES Performing Organization Address City/[facility] Co de Phone Number [facility] Unless otherwise noted, all lab tests performed by: Division of Pathology and Laboratory Medicine [address] [place] [phone] * Cortisol, Total (09/16/2023 6:52 AM CDT) Cortisol 8.34 4.82 - 19.50 mcg/dL 09/16/2023 6:20 PM CDT [facility] Blood Peripheral blood specimen / Unknown Venipuncture / Unknown 09/16/2023 6:52 AM CDT 09/16/2023 7:36 AM CDT Narrative [facility] - 09/16/2023 6:20 PM CDT Cortisol reference intervals are established for the morning hours from 6-10 am and afternoon hours 4-8 pm. Due to circadian rhythm of cortisol levels in serum and plasma, the sample collection time must be noted. Caution should be exercised when interpreting such values and done in conjunction with clinical context. Serum Cortisol Reference Ranges for >/= 21 years old: Morning (6-10 am): 4.82 - 19.5 mcg/dL Afternoon (4-8 pm): 2.47 - 11.9 mcg/dL He Soares MD LAB BLOOD ORDERABLES [facility] Unless otherwise noted, all lab tests performed by: Division of Pathology and Laboratory Medicine [address] [place] [address] * Transfuse RBC:Transfusion Date: 09/15/2023 (09/15/2023 6:06 PM CDT) Sung Anderson GEODETIC ENGINEER BLOOD TRANSFUSION OR DERABLES * Confirm ABORh (09/15/2023 9:14 AM CDT) ABORh Confirm A POS 09/15/2023 9:11 AM CDT [facility] - TRANSFUSION SERVICES Blood Peripheral blood specimen / Unknown Venipuncture / Unknown 09/15/2023 9:14 AM CDT 09/15/2023 9:23 AM CDT Sung Anderson GEODETIC ENGINEER BLOOD BANK TEST DEXTER DUFF Performing Organization Address City/[facility]/ZIP Co de Phone Number [facility] - TRANSFUSION SERVICES [facility] [facility] [address] [place] [address] [id number] [place] [address] * Type and screen (09/15/2023 9:13 AM CDT) ABORh A POS 09/15/2023 5:27 AM CDT [facility] ABSC Negative 09/15/2023 5:27 AM CDT [facility] Clot Expiration 09/18/2023 23:59 09/15/2023 5:27 AM CDT [facility] Historical Record Check No History 09/15/2023 5:27 AM CDT [facility] Blood Peripheral blood specimen / Unknown Venipuncture / Unknown 09/15/2023 9:13 AM CDT 09/15/2023 9:23 AM CDT Sung Anderson GEODETIC ENGINEER BLOOD BANK TEST ORDRachel DUFF [facility] [address] [place] [address] [id number] [place] [address] * Prepare RBC:[id number], 1 Units (09/15/2023 5:26 AM CDT) Product Code [id number] [facility] Product Code Text Red Blood Cells [facility] QTY Ordered 1 [facility] Dispense Status Transfused [facility] Unit Expiration [id number] [facility] Unit Number [id number] [facility] Unit Blood Type A+ [facility] Bag Volume 378 [facility] XM Interpretation Compatible U T [facility] Unit Blood Type Barcode 6200 [facility] PRBC Product Ready For Plate Embosser B2 Blood Bank [facility] RBC Product Status 1 RBC approved [facility] Comment:Order Form 03 when r osmar for product issue. Blood Estrellasheron McclendonAndersonchris MAURER BLOOD BANK PRODUCT O RDERABLES [facility] [address] [place] [address] [address] [place] [address] * Peripheral Smr For Doc Review (09/15/2023 3:30 AM CDT) Blood Peripheral blood specimen / Unknown Venipuncture / Unknown 09/15/2023 3:30 AM CDT 09/15/2023 4:16 AM CDT He Soares MD LAB BLOOD ORDERABLES [facility] Unless otherwise noted, all lab tests performed by: Division of Pathology and Laboratory Medicine [address] [place] [id number] * (ABNORMAL) Differential (09/15/2023 3:30 AM CDT) Total Cells 113 09/15/2023 8:54 AM CDT [facility] Manual Neutrophil % 92.0(H) 43.2 - 72.7 % 09/15/2023 8:54 AM T [facility] Comment:The Neutrophil count includes Bands. Manual Lymphocyte % 2.0(L) 16.8 - 46.2 % 09/15/2023 8:54 AM CDT [facility] Manual Monocyte % 2.0(L) 5.1 - 12.5 % 09/15/2023 8:54 AM CDT [facility] Manual Eosinophil % 1.0 0.4 - 6.3 % 09/15/2023 8:54 AM CDT [facility] Manual Basophil % 2.0(H) 0.2 - 1.4 % 09/15/2023 8:54 AM T [facility] Metamyelocyte % 1.0(H) <=0.0 % 8:54 AM T [facility] Comment:The Metamyelocyte co unt includes Myelocytes. Manual Neutrophil Abs 12.70(H) 1.95 - 7.25 K/uL 09/15/2023 8:54 AM CDT [facility] Manual Lymphocyte Abs 0.28(L) 1.01 - 3.24 K/uL 09/15/2023 8:54 AM CDT [facility] Manual Monocyte Abs 0.28 0.24 - 0.85 K/uL 09/15/2023 8:54 AM T [facility] Manual Eosinophil Abs 0.14 0.02 - 0.50 K/uL 09/15/2023 8:54 AM CDT [facility] Manual Basophil Abs 0.28(H) 0.02 - 0.09 K/uL 09/15/2023 8:54 AM T [facility] RBC Morphology PRESENT 09/15/2023 8:54 AM [facility] Anisocytosis Present(A) (none) 09/15/2023 8:54 AM [facility] Poikilocytosis Present(A) (none) 09/15/2023 8:54 AM [facility] Ovalocyte Present(A) (none) 09/15/2023 8:54 AM [facility] Tear Drop Present(A) (none) 09/15/2023 8:54 AM CDT [facility] [place] Cells Present(A) (none) 09/15/2023 8:54 AM CDT [facility] Slide Comment SEE NOTE 09/15/2023 8:54 AM CDT [facility] Comment:Platelet morphology normal. Blood Peripheral blood specimen / Unknown Venipuncture / Unknown 09/15/2023 3:30 AM CDT 09/15/2023 4:16 AM CDT Chilo David PA-C LAB BLOOD ORDERABLE S [facility] Unless otherwise noted, all lab tests performed by: Division of Pathology and Laboratory Medicine [address] [place] [address] * (ABNORMAL) Retic Auto (09/15/2023 3:30 AM CDT) Pathologist [facility] Reticulocyte Count Automated 1.00 0.92 - 2.71 % 09/16/2023 2:45 AM CDT [facility] RETHE 20.6(L) 29.9 - 38.4 pg 09/16/2023 2:45 AM CDT [facility] IRF 14.4 3.5 - 19.8 % 09/16/2023 2:45 AM CDT [facility] Retic Absolute 0.0264(L) 0.04 - 0.13 M/uL 09/16/2023 2:45 AM CDT [facility] Blood Peripheral blood specimen / Unknown Venipuncture / Unknown 09/15/2023 3:30 AM CDT 09/15/2023 4:16 AM CDT He Soares MD LAB BLOOD ORDERABLES [facility] Unless otherwise noted, all lab tests performed by: Division of Pathology and Laboratory Medicine [address] [place] [id number] * (ABNORMAL) Transferrin with TIBC (09/15/2023 3:30 AM CDT) Transferrin 111(L) 200 - 360 mg/dL 09/16/2023 1:13 AM CDT [facility] Total Iron Binding Capacity 155(L) 250 - 450 mcg/dL 09/16/2023 1:13 AM CDT [facility] Blood Peripheral blood specimen / Unknown Venipuncture / Unknown 09/15/2023 3:30 AM CDT 09/15/2023 4:46 AM CDT He Soares MD LAB BLOOD ORDERABLES Performing Organization Address City/[facility] Co de Phone Number [facility] Unless otherwise noted, all lab tests performed by: Division of Pathology and Laboratory Medicine [address] [place] [id number] * (ABNORMAL) Iron Level (09/15/2023 3:30 AM CDT) Iron Level <9(L) 37 - 145 mcg/dL 09/16/2023 1:13 AM CDT [facility] Is patient fasting? 09/16/2023 1:13 AM CDT [facility] Blood Peripheral blood specimen / Unknown Venipuncture / Unknown 09/15/2023 3:30 AM CDT 09/15/2023 4:46 AM CDT He Soares MD LAB BLOOD ORDERABLES Performing Organization Address City/[facility]/ZIP Co de Phone Number [facility] Unless otherwise noted, all lab tests performed by: Division of Pathology and Laboratory Medicine [address] [place] [address] * (ABNORMAL) Ferritin Level (09/15/2023 3:30 AM CDT) Ferritin Level 558(H) 13 - 150 ng/mL 09/16/2023 1:13 AM CDT [facility] Blood Peripheral blood specimen / Unknown Venipuncture / Unknown 09/15/2023 3:30 AM CDT 09/15/2023 4:46 AM CDT Narrative [facility] - 09/16/2023 1:13 AM CDT Reference range established for age 17 - 60 years He Soares MD LAB BLOOD ORDERABLES [facility] Unless otherwise noted, all lab tests performed by: Division of Pathology and Laboratory Medicine [address] [place] [phone] * MRSA Screening Culture (09/14/2023 4:19 PM CDT) [facility] MRSA Screening Culture No Methicillin-Resist ant Staphylococcus aureus isolated. 09/16/2023 1:36 PM CDT [facility] Swab (Nares, Right) Non-blood Collection / Unknown 09/14/2023 4:19 PM CDT 09/14/2023 4:25 PM CDT Narrative [facility] - 09/16/2023 1:36 PM CDT Testing is performed using PBP2a antigen detection and cefoxitin screen on isolated S. aureus colonies. This methodology may not detect uncommon mechanisms of methicillin resistance in S. aureus. Amber Dumont APRN MICROBIOLOGY - G ENERAL ORDERABLES Performing Organization Address [facility]/ZIP Co de Phone Number [facility] Unless otherwise noted, all lab tests performed by: Division of Pathology and Laboratory Medicine [address] [place] [id number] * Vancomycin Trough Vancomycin trough on 09/13 @ 1230. Nurse please coordinate with lab to draw troughapproximately 11 - 11.5 hours after previous vancomycin dose. Hold vancomycin if trough is greater than 20 and notify provider. Thanks! (09/14/2023 12:55 PM CDT) [facility] Vancomycin Trough 8.1 5.0 - 20.0 mcg/mL 09/14/2023 2:08 PM CDT [facility] Vancomycin Trough Dose Time 09/14/2023 2:08 PM CDT [facility] Vancomycin Trough Dose Date 09/14/2023 2:08 PM CDT [facility] Blood Peripheral blood specimen / Unknown Venipuncture / Unknown 09/14/2023 12:55 PM CDT 09/14/2023 1:05 PM CDT Narrative [facility] - 09/14/2023 2:08 PM CDT Toxic Trough Level: >20 mcg/ml Uncomplicated MRSA bacteremia: 10-15mcg/mL MRSA bacteremia or endocarditis and other severe invasive MRSA infections (PJI, HAP, RETAIL MANAGER IN [employer]ING infections): 15-20mcg/mL Chilo David PA-C LAB BLOOD ORDERABLE S [facility] Unless otherwise noted, all lab tests performed by: Division of Pathology and Laboratory Medicine [facility] [place] [address] * Echocardiogram 2D Complete (09/14/2023 10:28 AM CDT) 09/14/2023 9:21 AM CDT Narrative [facility] - 09/14/2023 6:21 PM CDT Echocardiographic Report Interpretation Summary A complete two-dimensional transthoracic echocardiogram was performed (2D, M- mode, Spectral and color Doppler). There is no comparison study available. Normal left ventricular size and systolic function. LV ejection fraction (LVEF) is in the range of 55% (calculated by method of discs). The right ventricle is normal in size and function. There is no pericardial effusion. Left Ventricle: Normal left ventricular size and systolic function. There is normal left ventricular wall thickness. LV ejection fraction (LVEF) is in the range of 55% (calculated by method of discs). No regional wall motion abnormalities noted. I WMSI = 1.00 % Normal = 100 GLPS_Avg = -16.7. Abnormal global longitudinal peak systolic value. Segments Size X - Cannot 2 - 1-2 small Interpret 1 - Normal Hypokinetic 3 - Akinetic 4 - Dyskinetic3- 5 moderate 5 - Aneurysmal 6-14 large 15-16 diffuse 3D imaginD volumes were not performed in this study. Cardiac Mechanics/Speckle Tracking Imaging: Abnormal global longitudinal peak systolic value. Strain Imaging was performed; GLPS avg = -16.7%. Diastology: LV relaxation appears normal. Right Ventricle: The right ventricle is normal in size and function. Atria: The left atrial size is normal. Right atrial size is normal. Mitral Valve: Mild posterior mitral annular calcification. Tricuspid Valve: The tricuspid valve is not well visualized, but is grossly normal. There is trace tricuspid regurgitation. Right ventricular systolic pressure is normal. Aortic Valve: The aortic valve is trileaflet. The aortic valve opens well. Pulmonic Valve: The pulmonic valve is not well visualized. Trace pulmonic valvular regurgitation. Great Vessels: The aortic root is normal size. The aortic arch is not well visualized. The pulmonary is not well visualized. The inferior vena cava demonstrates normal size and normal respiratory variation. Pericardium/Pleural: There is no pericardial effusion. Preliminary Reviewer Wilfredo Rogers. MMode/2D Measurements RVDd: 3.3 cm LVIDd: 4.9 cm IVSd: 0.51 cm LVIDs: 3.4 cm LVPWd: 0.60 cm FS: 31.0 % Ao root diam: 3.1 cm Ao root area: 7.6 cm2 LA dimension: 4.3 cm LVOT diam: 1.8 cm EDV(MOD-A4C): 79.1 ml ESV(MOD-A4C): 34.6 ml LVOT area: 2.6 cm2 EF(MOD-A4C): 56.3 % EDV(MOD-A2C): 54.6 ml ESV(MOD-A2C): 24.8 ml EDV(MOD-bp): 67.2 ml EF(MOD-A2C): 54.6 % ESV(MOD-bp): 30.0 ml EF(MOD-bp): 55.3 % LAV(MOD-A2C): 49.1 ml EDV (MOD-bp) Index: 40.9 ml/m2 LAV(MOD-A4C): 31.7 ml LAV(MOD-bp): 39.7 ml LAV(MOD-bp) Indexed: 24.1 ml/m2 ESV (MOD-bp) Index: 18.3 ml/m2 RWT: 0.24 cm TAPSE (>1.6): 2.2 cm Doppler Measurements MV E max tang: 77.9 cm/sec MV V2 max: 102.7 cm/sec MV A max tang: 73.9 cm/sec MV max P.2 mmHg MV E/A: 1.1 MV V2 mean: 58.6 cm/sec MV mean P.6 mmHg MV V2 VTI: 26.5 cm MVA(VTI): 2.0 cm2 Ao V2 max: 144.2 cm/sec LV V1 max P.1 mmHg Ao max P.3 mmHg LV V1 mean P.3 mmHg Ao V2 mean: 87.8 cm/sec LV V1 max: 132.8 cm/sec Ao mean P.6 mmHg LV V1 mean: 86.2 cm/sec Ao V2 VTI: 21.9 cm LV V1 VTI: 21.2 cm BRIANNA(I,D): 2.5 cm2 BRIANNA(V,D): 2.4 cm2 SV(LVOT): 54.2 ml PA V2 max: 95.8 cm/sec PA max P.7 mmHg PA V2 mean: 65.2 cm/sec PA mean P.9 mmHg PA V2 VTI: 16.0 cm Med Peak E' Tang: 8.9 cm/sec Lat Peak E' Tang: 8.2 cm/sec TR max tang: 211.7 cm/sec RAP systole: 3.0 mmHg TR max P.9 mmHg RVSP(TR): 20.9 mmHg BRIANNA Index (I,D): 1.5 BRIANNA Index (V,D): 1.4 Dimensionless Index: 0.92 E/e' (avg): 9.1 E/e' (lat): 9.5 E/e' (sept): 8.8 Procedure Note Vick Malik MD - 09/14/2023 Echocardiographic Report Interpretation Summary A complete two-dimensional transthoracic echocardiogram was performed (2D,M- mode, Spectral and color Doppler). There is no comparison studyavailable. Normal left ventricular size and systolic function. LV ejection fraction (LVEF) is in the range of 55% (calculated by methodof discs). The right ventricle is normal in size and function. There is no pericardial effusion. Left Ventricle: Normal left ventricular size and systolic function. There is normal leftventricular wall thickness. LV ejection fraction (LVEF) is in the range of55% (calculated by method of discs). No regional wall motion abnormalitiesnoted. I WMSI = 1.00 % Normal = 100 GLPS_Avg = -16.7. Abnormal global longitudinal peak systolic value. Segments Size X - Cannot 2 - 1-2small Interpret 1 - Normal Hypokinetic 3 - Akinetic 4 - Dyskinetic3-5moderate 5 - Aneurysmal6-14 large 15-16 diffuse 3D imaginD volumes were not performed in this study. Cardiac Mechanics/Speckle Tracking Imaging: Abnormal global longitudinal peak systolic value. Strain Imaging wasperformed; GLPS avg = -16.7%. Diastology: LV relaxation appears normal. Right Ventricle: The right ventricle is normal in size and function. Atria: The left atrial size is normal. Right atrial size is normal. Mitral Valve: Mild posterior mitral annular calcification. Tricuspid Valve: The tricuspid valve is not well visualized, but is grossly normal. Thereis trace tricuspid regurgitation. Right ventricular systolic pressure isnormal. Aortic Valve: The aortic valve is trileaflet. The aortic valve opens well. Pulmonic Valve: The pulmonic valve is not well visualized. Trace pulmonic valvularregurgitation. Great Vessels: The aortic root is normal size. The aortic arch is not well visualized.The pulmonary is not well visualized. The inferior vena cava demonstratesnormal size and normal respiratory variation. Pericardium/Pleural: There is no pericardial effusion. Preliminary Reviewer Wilfredo Rogers. MMode/2D Measurements RVDd: 3.3 cmLVIDd: 4.9 cm IVSd: 0.51 cmLVIDs: 3.4 cm LVPWd: 0.60 cm FS: 31.0 %Ao root diam: 3.1 cm Ao root area: 7.6 cm2 LA dimension: 4.3 cm LVOT diam: 1.8 cmEDV(MOD-A4C): 79.1 ml ESV(MOD-A4C): 34.6 ml LVOT area: 2.6 cm2EF(MOD-A4C): 56.3 % EDV(MOD-A2C): 54.6 ml ESV(MOD-A2C): 24.8 mlEDV(MOD-bp): 67.2 ml EF(MOD-A2C): 54.6 %ESV(MOD-bp): 30.0 ml EF(MOD-bp): 55.3 % LAV(MOD-A2C): 49.1 mlEDV (MOD-bp) Index: 40.9 ml/m2 LAV(MOD-A4C): 31.7 ml LAV(MOD-bp): 39.7 ml LAV(MOD-bp) Indexed: 24.1 ml/m2 ESV (MOD-bp) Index: 18.3 ml/m2RWT: 0.24 cm TAPSE (>1.6): 2.2 cm Doppler Measurements MV E max tang: 77.9 cm/secMV V2 max: 102.7 cm/sec MV A max tang: 73.9 cm/secMV max P.2 mmHg MV E/A: 1.1MV V2 mean: 58.6 cm/sec MV mean P.6 mmHg MV V2 VTI: 26.5 cm MVA(VTI): 2.0 cm2 Ao V2 max: 144.2 cm/secLV V1 max P.1 mmHg Ao max P.3 mmHgLV V1 mean P.3 mmHg Ao V2 mean: 87.8 cm/secLV V1 max: 132.8 cm/sec Ao mean P.6 mmHgLV V1 mean: 86.2 cm/sec Ao V2 VTI: 21.9 cmLV V1 VTI: 21.2 cm BRIANNA(I,D): 2.5 cm2 BRIANNA(V,D): 2.4 cm2 SV(LVOT): 54.2 mlPA V2 max: 95.8 cm/sec PA max P.7 mmHg PA V2 mean: 65.2 cm/sec PA mean P.9 mmHg PA V2 VTI: 16.0 cm Med Peak E' Tang: 8.9 cm/secLat Peak E' Tang: 8.2 cm/sec TR max tang: 211.7 cm/secRAP systole: 3.0 mmHg TR max P.9 mmHg RVSP(TR): 20.9 mmHg BRIANNA Index (I,D): 1.5AVA Index (V,D): 1.4 Dimensionless Index: 0.92E/e' (avg): 9.1 E/e' (lat): 9.5E/e' (sept): 8.8 Chilo David PA-C CV ECHO ORDERABLES ISCV * HIV 1/2 Antigen/Antibody, Fourth Gen W/RFL (09/14/2023 5:11 AM CDT) [facility] HIV Ag/Ab, 4TH Gen NON-REACT LORENZA NON-REACT LORENZA 09/18/2023 6:53 PM CDT MARI POOLE) Comment: HIV-1 antigen and HIV-1/HIV-2 antibodies were not detected. There is no laboratory evidence of HIV infection. PLEASE NOTE: This information has been disclosed to you from records whose confidentiality may be protected by state law. If your state requires such protection, then the state law prohibits you from making any further disclosure of the information without the specific written consent of the person to whom it pertains, or as otherwise permitted by law. A general authorization for the release of medical or other information is NOT sufficient for this purpose. For additional information please refer to http://education.[employer]faq/PFJ178 (This link is being provided for informational/ educational purposes only.) The performance of this assay has not been clinically validated in patients less than 2 years old. Blood Peripheral blood specimen / Unknown Venipuncture / Unknown 09/14/2023 5:11 AM CDT 09/14/2023 5:21 AM CDT Altaf MARI (NURIS) - 09/18/2023 6:53 PM CDT Performing Organization Information: [facility] [address] [place] [id number] Sarah Arroyo Caleb Tobar MD LAB BLOOD ORDERABLES [facility]OO[facility]) * Hepatitis C Virus Antibody (09/14/2023 5:11 AM CDT) [facility] HCVAb. Non Reactive Non Reactive 09/14/2023 9:50 AM CDT [facility] Blood Peripheral blood specimen / Unknown Venipuncture / Unknown 09/14/2023 5:11 AM CDT 09/14/2023 5:21 AM CDT Narrative [facility] - 09/14/2023 9:50 AM CDT Antibody detection in the immunocompromised and immunosuppressed population may be delayed or absent entirely. Therefore serial testing, correlation with other clinical findings, and supplemental testing (if available) should be taken into consideration when interpreting the results. Caleb Tobar MD LAB BLOOD ORDERABLES [facility] Unless otherwise noted, all lab tests performed by: Division of Pathology and Laboratory Medicine [address] [place] [address] * Hepatitis B Total Ig Core Ab (SCREENING) (anti-HBc total Ig; HBcAb total Ig) (09/14/2023 5:11 AM CDT) Pathologist [facility] HBcAb. Non Reactive Non Reactive 09/14/2023 9:49 AM CDT [facility] Blood Peripheral blood specimen / Unknown Venipuncture / Unknown 09/14/2023 5:11 AM CDT 09/14/2023 5:21 AM CDT Caleb Tobar MD LAB BLOOD ORDERABLES Performing Organization Address City/[facility] Co de Phone Number [facility] Unless otherwise noted, all lab tests performed by: Division of Pathology and Laboratory Medicine [address] [place] [phone] * Hepatitis B Surface Antibody (09/14/2023 5:11 AM CDT) [facility] HBsAb Non Reactive 09/14/2023 9:49 AM CDT [facility] Blood Peripheral blood specimen / Unknown Venipuncture / Unknown 09/14/2023 5:11 AM CDT 09/14/2023 5:21 AM CDT Narrative [facility] - 09/14/2023 9:49 AM CDT Vaccinated individual: Reactive Unvaccinated individual: Non-Reactive Caleb Tobar MD LAB BLOOD ORDERABLES [facility] Unless otherwise noted, all lab tests performed by: Division of Pathology and Laboratory Medicine [address] [place] [phone] * Hepatitis B Surface Ag (09/14/2023 5:11 AM CDT) [facility] HBsAg. Non Reactive Non Reactive 09/14/2023 9:49 AM CDT [facility] Blood Peripheral blood specimen / Unknown Venipuncture / Unknown 09/14/2023 5:11 AM CDT 09/14/2023 5:21 AM CDT Caleb Tobar MD LAB BLOOD ORDERABLES Performing Organization Address City/[facility]/ZIP Co de Phone Number [facility] Unless otherwise noted, all lab tests performed by: Division of Pathology and Laboratory Medicine [address] [place] [phone] * (ABNORMAL) Urinalysis Microscopic Exam (09/13/2023 6:05 PM CDT) Urine Mucous Trace Not Seen, Trace /HPF 09/13/2023 7:25 PM CDT [facility] Urine Bacteria Not Seen Not Seen /HPF 09/13/2023 7:25 PM CDT [facility] Urine Squamous Epithelial Cells OCC Not Seen, OCC, Rare /HPF 09/13/2023 7:25 PM CDT [facility] Urine Amorphous Crystal OCC(A) Not Seen /HPF 09/13/2023 7:25 PM CDT [facility] Urine WBC 2 <=2 /HPF 09/13/2023 7:25 PM CDT [facility] Urine RBC <1 <=2 /HPF 09/13/2023 7:25 PM CDT [facility] Urine (Urine Clean Catch) Non-blood Collection / Unknown 09/13/2023 6:05 PM CDT 09/13/2023 6:15 PM CDT Naida Kelley APRN LAB BLOOD ORDERAB LES [facility] Unless otherwise noted, all lab tests performed by: Division of Pathology and Laboratory Medicine [address] [place] [address] * (ABNORMAL) Urinalysis w/Microscopic if Indicated (09/13/2023 6:05 PM CDT) Only the most recent of2 resultswithin the time period is included. Urine Appearance Hazy(A) Clear 09/13/19 6:21 PM CDT [facility] Urine Color Yellow Colorless, Straw, Yellow, Dark Yellow, Straw-Yellow 09/13/2023 6:21 PM CDT [facility] Urine Specific [place] 1.014 1.003 - 1.035 09/13/2023 6:21 PM CDT [facility] Urine pH 6.0 5.0 - 8.0 09/13/2023 6:21 PM CDT [facility] Urine Glucose Negative Negative mg/dL 09/13/2023 6:21 PM CDT [facility] Urine Ketones Negative Negative mg/dL 09/13/2023 6:21 PM CDT [facility] Urine Blood Negative Negative 09/13/2023 6:21 PM CDT [facility] Urine Protein 30(A) Negative mg/dL 09/13/2023 6:21 PM CDT [facility] Urine Bilirubin Negative Negative 6:21 PM CDT [facility] Urine Urobilinogen Negative Negative 09/13/2023 6:21 PM CDT [facility] Urine Nitrite Negative Negative 09/13/2023 6:21 PM CDT [facility] Urine Leukocyte Esterase Negative Negative 09/13/2023 6:21 PM CDT [facility] Urine (Urine Clean Catch) Non-blood Collection / Unknown 09/13/2023 6:05 PM CDT 09/13/2023 6:15 PM CDT Narrative [facility] - 09/13/2023 6:21 PM CDT Some reporting parameters within the Urinalysis test have changed due to the implementation of new instrumentation in the Main [place], allowing greater sensitivity of measurement. Urinalysis results reported by the [facility] using existing instrumentation, as well as Urinalysis testing performed manually or by back-up methodology at the main bath, will remain relatively unchanged. New reporting parameters and units will now be reported for all campuses. Naida Kelley APRN URINE ORDERABLES [facility] Unless otherwise noted, all lab tests performed by: Division of Pathology and Laboratory Medicine [address] [place] [address], [place] [address] * US Liver (09/13/2023 5:14 PM CDT) Anatomical Region Laterality Modality Abdomen Ultrasound 09/13/2023 5:25 PM CDT Impressions 09/13/2023 6:46 PM CDT 1. No biliary dilatation. 2. Enlarged heterogenous liver consistent with known hepatic metastases. 3. Trace amount of nonspecific pericholecystic fluid. ACTIONABLE ITEMS/RECOMMENDATIONS*: None. *An Actionable Finding is a finding that may be unrelated to the original reason for imaging but potentially actionable, meaning further investigation may be necessary. The Actionable Findings Vigilance Unit (AFVU) assists medical providers with responding to additional radiologic findings that are unexpected and potentially actionable. I personally reviewed these image(s) along with the resident's/fellow's interpretations, certify that if a procedure was performed I was physically present, and agree with the final report. Narrative 09/13/2023 6:46 PM CDT Examination: US LIVER on 09/13/2023 5:14 PM. Clinical History: Acute abdominal pain Dyspnea Colon cancer Metastatic carcinoma to liver Fever. Indication: Other:, Concerns of Mets causing obstruction. Comparison: CT abdomen and pelvis 09/11/2023. Technique: The abdominal right upper quadrant was evaluated with grayscale and color Doppler ultrasound. Findings: Liver: Enlarged measuring 18.9 cm in length. Diffusely heterogenous parenchyma. The main portal vein measures 1 cm with normal hepatopetal flow. Biliary ducts: No intrahepatic or extra hepatic biliary dilatation. The common bile duct measures 0.5 cm. Gallbladder: The gallbladder wall measures 2.8 mm. No gallstones identified. There is a trace amount of nonspecific pericholecystic fluid. Negative sonographic Geronimo sign. Pancreas: Not well seen. Right kidney: Measures 10.8 cm in length. No hydronephrosis. No focal lesions. Procedure Note Frandy Leary MD - 09/13/2023 Examination: US LIVER on 09/13/2023 5:14 PM. Clinical History: Acute abdominal pain Dyspnea Colon cancer Metastatic carcinoma to liver Fever. Indication: Other:, Concerns of Mets causing obstruction. Comparison: CT abdomen and pelvis 09/11/2023. Technique: The abdominal right upper quadrant was evaluated withgrayscale and color Doppler ultrasound. Findings: Liver: Enlarged measuring 18.9 cm in length. Diffusely heterogenousparenchyma. The main portal vein measures 1 cm with normal hepatopetalflow. Biliary ducts: No intrahepatic or extra hepatic biliary dilatation. Thecommon bile duct measures 0.5 cm. Gallbladder: The gallbladder wall measures 2.8 mm. No gallstonesidentified. There is a trace amount of nonspecific pericholecystic fluid.Negative sonographic Geronimo sign. Pancreas: Not well seen. Right kidney: Measures 10.8 cm in length. No hydronephrosis. No focallesions. IMPRESSION: 1. No biliary dilatation. 2. Enlarged heterogenous liver consistent with known hepaticmetastases. 3. Trace amount of nonspecific pericholecystic fluid. ACTIONABLE ITEMS/RECOMMENDATIONS*: None. *An Actionable Finding is a finding that may be unrelated to the originalreason for imaging but potentially actionable, meaning furtherinvestigation may be necessary. The Actionable Findings Vigilance Unit(AFVU) assists medical providers with responding to additional radiologicfindings that are unexpected and potentially actionable. I personally reviewed these image(s) along with the resident's/fellow'sinterpretations, certify that if a procedure was performed I wasphysically present, and agree with the final report. Chilo David PA-C IMG US ORDERABLES * (ABNORMAL) Lactic Acid, Venous (09/13/2023 10:35 AM CDT) Only the most recent of2 resultswithin the time period is included. Venous Lactate 1.8(H) 0.5 - 1.6 mmol/L 09/13/2023 10:43 AM CDT [facility] Oxygen FLOW Rate/ FiO2 09/13/2023 10:43 AM CDT [facility] O2 Therapy 09/13/2023 10:43 AM CDT [facility] Blood Peripheral blood specimen / Unknown Venipuncture / Unknown 09/13/2023 10:35 AM CDT 09/13/2023 10:41 AM CDT Chilo David PA-C LAB BLOOD ORDERABLE S [facility] Unless otherwise noted, all lab tests performed by: Division of Pathology and Laboratory Medicine [address] [place] [address] * Blood Culture (09/13/2023 10:35 AM CDT) Only the most recent of2 resultswithin the time period is included. Pathologist [facility] Blood Culture No Growth. 09/18/2023 12:01 PM CDT [facility] Blood Peripheral blood specimen / Unknown Venipuncture / Unknown 09/13/2023 10:35 AM CDT 09/13/2023 10:41 AM CDT Naida Kelley APRN MICROBIOLOGY - GE NERAL ORDERABLES Performing Organization Address City/[facility]/ZIP Co de Phone Number [facility] Unless otherwise noted, all lab tests performed by: Division of Pathology and Laboratory Medicine [address] [place] [address] * (ABNORMAL) Procalcitonin (09/13/2023 3:19 AM CDT) Only the most recent of2 resultswithin the time period is included. Pathologist [facility] Procalcitonin 3.43(H) <=0.08 ng/mL 09/13/2023 4:23 AM CDT [facility] Blood Peripheral blood specimen / Unknown Venipuncture / Unknown 09/13/2023 3:19 AM CDT 09/13/2023 3:44 AM CDT Narrative [facility] - 09/13/2023 4:23 AM CDT Procalcitonin > 2.00 ng/mL: Procalcitonin levels above 2.00 ng/mL are highly suggestive of a high risk for systematic bacterial infection/ severe sepsis and/or septic shock. Procalcitonin < 0.50 ng/mL: Procalcitonin levels below 0.50 ng/mL are at low risk for progression to severe sepsis and/ or septic shock. Procalcitonin (ProCT) between 0.15 and 2.0 ng/mL do not exclude infection, because localized infections (without systemic signs) may be associated with such low levels. Results greater than 400 ng/mL may not be reliable due to the matrix effect with extended dilution as it exceeds the molder's recommended limit. Caution should be exercised when interpreting such values and done in conjunction with clinical context. Ban Bills GEODETIC ENGINEER,AGACNP LAB BLOOD OR DERABLES Performing Organization Address [facility] Co de Phone Number [facility] Unless otherwise noted, all lab tests performed by: Division of Pathology and Laboratory Medicine [address] [place] [id number] * Urine Culture (09/13/2023 1:02 AM CDT) [facility] Urine Culture Normal site santi present. Generally of low significance. Correlate with clinical data and culture history. 09/15/2023 8:06 AM CDT [facility] Urine (Urine Clean Catch) Non-blood Collection / Unknown 09/13/2023 1:02 AM CDT 09/13/2023 1:08 AM CDT Naida Kelley APRN MICROBIOLOGY - NERAL ORDERABLES Performing Organization Address [facility] Co de Phone Number [facility] Unless otherwise noted, all lab tests performed by: Division of Pathology and Laboratory Medicine [address] [place] [id number] * Gastrointestinal Multiplex PCR Panel (09/12/2023 4:59 PM CDT) [facility] Campylobacter Not Detected Not Detected 09/12/2023 7:29 PM CDT [facility] Plesiomonas shigelloides Not Detected Not Detected 09/12/2023 7:29 PM CDT [facility] Salmonella Not Detected Not Detected 09/12/2023 7:29 PM CDT [facility] Vibrio Not Detected Not Detected 09/12/2023 7:29 PM CDT [facility] Vibrio cholerae Not Detected Not Detected 09/12/2023 7:29 PM CDT [facility] Yersinia enterocolitica Not Detected Not Detected 09/12/2023 7:29 PM CDT [facility] Enteroaggregative E. coli (EAEC) Not Detected Not Detected 09/12/2023 7:29 PM CDT [facility] Enteropathogenic E. coli (EPEC) Not Detected Not Detected 09/12/2023 7:29 PM CDT [facility] Enterotoxigenic E. coli (ETEC) LT/ST Not Detected Not Detected 09/12/2023 7:29 PM CDT [facility] Shiga-like toxin-producing E. coli (STEC) Stx1/Stx2 Not Detected Not Detected 09/12/2023 7:29 PM CDT [facility] E. coli O157 N/A Not Detected 09/12/2023 7:29 PM CDT [facility] Shigella/Enteroinvas lorenza E. coli (EIEC) Not Detected Not Detected 09/12/2023 7:29 PM CDT [facility] Cryptosporidium Not Detected Not Detected 09/12/2023 7:29 PM CDT [facility] Cyclospora cayetanensis Not Detected Not Detected 09/12/2023 7:29 PM CDT [facility] Entamoeba histolytica Not Detected Not Detected 09/12/2023 7:29 PM CDT [facility] Giardia lamblia Not Detected Not Detected 09/12/2023 7:29 PM CDT [facility] Adenovirus F40/41 Not Detected Not Detected 09/12/2023 7:29 PM CDT [facility] Astrovirus Not Detected Not Detected 09/12/2023 7:29 PM CDT [facility] Norovirus GI/GII Not Detected Not Detected 09/12/2023 7:29 PM CDT [facility] Rotavirus A Not Detected Not Detected 09/12/2023 7:29 PM CDT [facility] Sapovirus (I, II, IV, V) Not Detected Not Detected 09/12/2023 7:29 PM CDT [facility] C. difficile Refer to separate C. difficile DNA Detection assay for results. 09/12/2023 7:29 PM CDT [facility] Stool Rectum structure / Unknown Non-blood Collection / Unknown 09/12/2023 4:59 PM CDT 09/12/2023 5:17 PM CDT Narrative [facility] - 09/12/2023 7:29 PM CDT The assay is a qualitative multiplex PCR assay to aid in the diagnosis of gastrointestinal infection through simultaneous qualitative detection and identification of multiple GI pathogens in diarrheal specimens collected in [employer] transport media obtained from individuals suspected of gastrointestinal infections. Testing is performed using the Occipital Gastrointestinal (GI) Panel on the [employer] Assignment System. The following organisms are identified using the [employer] GI Panel: Campylobacter spp., Plesiomonas shigelloides, Salmonella spp, Vibrio spp, including specific identification of Vibrio cholerae, Yersinia enterocolitica, Enteroaggregative Escherichia coli (EAEC), Enteropathogenic Escherichia coli (EPEC), Enterotoxigenic Escherichia coli (ETEC), Shiga-like toxin-producing Escherichia coli (STEC) including specific identification of the E. coli O157, Shigella spp/Enteroinvasive Escherichia coli (EIEC), Cryptosporidium, Cyclospora cayetanensis, Entamoeba histolytica, Giardia lamblia, Adenovirus F 40/41, Astrovirus, Norovirus GI/GII, Rotavirus, and Sapovirus. C. difficile testing is NOT reported in this assay and should be ordered separately. A result of Not Detected" does not exclude the possibility of the presence of one or more of the pathogens at or below the detection limits of this assay nor does it exclude the possibility of diarrheal pathogens not detected by this panel. Non-infectious causes of diarrhea should also be considered in such cases. Internal controls are used to monitor all stages of the testing process including amplification inhibition. If inhibition is detected, testing is repeated and if inhibition is confirmed the specimen is resulted as "Invalid". When an "Invalid" result occurs, it is recommended to wait 3 days before submitting a new specimen for testing if clinically indicated. This is an FDA-approved assay and its performance characteristics were verified by the microbiology laboratory at the [facility] [place]. Results must be interpreted within the context of all relevant clinical and laboratory findings. Assay should not be used for monitoring response to therapy. Naida Kelley APRN MICROBIOLOGY - [facility] ORDERABLES [facility] Unless otherwise noted, all lab tests performed by: Division of Pathology and Laboratory Medicine [facility] [place] [address] * C. difficile DNA Detection (09/12/2023 4:59 PM CDT) C. difficile - DNA Negative Negative 09/13/2023 10:33 AM CDT [facility] C. difficile - EIA Test Not Performed Negative 09/13/2023 10:33 AM CDT [facility] C. difficile - Interpretation C. difficile DNA detection was negative making C. difficile infection highly unlikely in this patient. EIA not performed. 09/13/2023 10:33 AM CDT [facility] Stool Rectum structure / Unknown Non-blood Collection / Unknown 09/12/2023 4:59 PM CDT 09/12/2023 5:17 PM CDT Narrative [facility] - 09/13/2023 10:33 AM CDT Qualitative detection of C. difficile DNA performed using helicase-dependent amplification of a conserved region of a pathogenicity locus (PaLoc) in toxigenic C. difficile strains. It is an FDA-approved assay performed on the [employer] Instrument from [employer] and is intended for use as an aid in diagnosis of C. difficile infections. Testing is performed only on liquid stools. Detection of C difficile DNA does not differentiate between infection versus colonization. Stool specimens that are positive for C. difficile DNA undergo toxin antigen testing by C difficile EIA. The C. difficile EIA detects the presence of C. difficile Toxin A and B proteins via a rapid immunoassay using the FDA-approved ImmunoCard by [employer]. Patients positive for BOTH C. difficile DNA and toxin proteins by EIA are more likely to have a C. difficile infection. However, patients positive only for C. difficile DNA but negative for toxins by EIA are less likely to have a C. difficile infection and may represent asymptomatic colonization. Recommend clinical assessment in these cases. If significant diarrhea is present, C. difficile infection remains a possibility. When invalid results are obtained by either the primary or reflex method, a new specimen should be collected for repeat testing if clinically indicated. The performance characteristics of the C. difficile DNA and EIA assays were verified by the microbiology laboratory at the [facility]. Results must be interpreted within the context of all relevant clinical and laboratory findings. Naida Kelley ERASTO MICROBIOLOGY - [facility] ORDERABLES [facility] Unless otherwise noted, all lab tests performed by: Division of Pathology and Laboratory Medicine [address] [place] [address] * (ABNORMAL) Urinalysis with Microscopic (09/12/2023 4:31 PM CDT) Urine Appearance Hazy(A) Clear 09/12/19 5:09 PM CDT [facility] Comment:This result was prev iously suppressed from the chart. Urine Color Yellow Colorless, Straw, Yellow, Dark Yellow, Straw-Yellow 09/12/2023 5:09 PM CDT [facility] Comment:This result was prev iously suppressed from the chart. Urine Specific [place] 1.023 1.003 - 1.035 09/12/2023 5:09 PM CDT [facility] Comment:This result was prev iously suppressed from the chart. Urine pH 6.0 5.0 - 8.0 09/12/2023 5:09 PM CDT [facility] Comment:This result was prev iously suppressed from the chart. Urine Glucose Negative Negative mg/dL 09/12/2023 5:09 PM CDT [facility] Comment:This result was prev iously suppressed from the chart. Urine Ketones Negative Negative mg/dL 09/12/2023 5:09 PM CDT [facility] Comment:This result was prev iously suppressed from the chart. Urine Blood Negative Negative 09/12/2023 5:09 PM CDT [facility] Comment:This result was prev iously suppressed from the chart. Urine Protein 30(A) Negative mg/dL 09/12/2023 5:09 PM CDT [facility] Comment:This result was prev iously suppressed from the chart. Urine Bilirubin Negative Negative 5:09 PM CDT [facility] Urine Urobilinogen Negative Negative 09/12/2023 5:09 PM CDT [facility] Urine Nitrite Negative Negative 09/12/2023 5:09 PM CDT [facility] Comment:This result was prev iously suppressed from the chart. Urine Leukocyte Esterase Negative Negative 09/12/2023 5:09 PM CDT [facility] Comment:This result was prev iously suppressed from the chart. Urine WBC 1 <=2 /HPF 09/12/2023 5:09 PM CDT [facility] Urine RBC 09/12/2023 5:09 PM CDT [facility] Comment:None Seen Urine Mucous Trace Not Seen, Trace /HPF 09/12/2023 5:09 PM CDT [facility] Comment:This result was prev iously suppressed from the chart. Urine Bacteria OCC(A) Not Seen /HPF 09/12/2023 5:09 PM CDT [facility] Comment:This result was prev iously suppressed from the chart. Urine Squamous Epithelial Cells OCC Not Seen, OCC, Rare /HPF 09/12/2023 5:09 PM CDT [facility] Comment:This result was prev iously suppressed from the chart. Urine Hyaline Casts 3(H) <=2 /LPF 09/12/2023 5:09 PM CDT [facility] Urine Amorphous Crystal OCC(A) Not Seen /HPF 09/12/2023 5:09 PM CDT [facility] Comment:This result was prev iously suppressed from the chart. Urine Voided urine specimen / Unknown Non-blood Collection / Unknown 09/12/2023 4:31 PM CDT 09/12/2023 4:37 PM CDT Narrative [facility] - 09/12/2023 5:09 PM CDT Some reporting parameters within the Urinalysis test have changed due to the implementation of new instrumentation in the Main [place], allowing greater sensitivity of measurement. Urinalysis results reported by the [facility] using existing instrumentation, as well as Urinalysis testing performed manually or by back-up methodology at the main bath, will remain relatively unchanged. New reporting parameters and units will now be reported for all campuses. Naida Kelley APRN URINE ORDERABLES [facility] Unless otherwise noted, all lab tests performed by: Division of Pathology and Laboratory Medicine [address] [place] [address] * XR Chest 1 View (09/12/2023 1:48 PM CDT) Anatomical Region Laterality Modality Chest Digital Radiogra phy 09/12/2023 2:05 PM CDT Impressions 09/12/2023 2:06 PM CDT No evidence of pneumonia. ACTIONABLE ITEMS/RECOMMENDATIONS*: None. *An Actionable Finding is a finding that may be unrelated to the original reason for imaging but potentially actionable, meaning further investigation may be necessary. The Actionable Findings Vigilance Unit (AFVU) assists medical providers with responding to additional radiologic findings that are unexpected and potentially actionable. Narrative 09/12/2023 2:06 PM CDT FULL RESULT: Examination: XR CHEST 1 VW on 09/12/2023 1:48 PM. Clinical History: Acute abdominal pain Dyspnea Colon cancer Metastatic carcinoma to liver Indication: Fever Comparison: CT from yesterday Technique: Frontal radiograph of the chest Findings: Support Apparatus: None. Lungs/Pleura/Mediastinum: Low lung volumes. No evidence of pneumonia. No pleural effusions or pneumothorax. Heart size is normal. Procedure Note Paul Randolph MD - 09/12/2023 FULL RESULT: Examination: XR CHEST 1 VW on 09/12/2023 1:48 PM. Clinical History: Acute abdominal pain Dyspnea Colon cancer Metastatic carcinoma to liver Indication: Fever Comparison: CT from yesterday Technique: Frontal radiograph of the chest Findings: Support Apparatus: None. Lungs/Pleura/Mediastinum: Low lung volumes. No evidence of pneumonia. Nopleural effusions or pneumothorax. Heart size is normal. IMPRESSION: No evidence of pneumonia. ACTIONABLE ITEMS/RECOMMENDATIONS*: None. *An Actionable Finding is a finding that may be unrelated to the originalreason for imaging but potentially actionable, meaning furtherinvestigation may be necessary. The Actionable Findings Vigilance Unit(AFVU) assists medical providers with responding to additional radiologicfindings that are unexpected and potentially actionable. Naida Kelley APRN IMG DIAGNOSTIC IM AGING ORDERABLES * Respiratory Multiplex PCR Panel, Nasopharyngeal Swab (09/12/2023 12:55 PM CDT) Pathologist [facility] Adenovirus Not Detected Not Detected 09/12/2023 1:56 PM CDT [facility] Coronavirus 229E Not Detected Not Detected 09/12/2023 1:56 PM CDT [facility] Coronavirus HKU1 Not Detected Not Detected 09/12/2023 1:56 PM CDT [facility] Coronavirus NL63 Not Detected Not Detected 09/12/2023 1:56 PM CDT [facility] Coronavirus OC43 Not Detected Not Detected 09/12/2023 1:56 PM CDT [facility] COVID-19 (SARS-CoV-2) Not Detected Not Detected 09/12/2023 1:56 PM CDT [facility] Human Metapneumovirus Not Detected Not Detected 09/12/2023 1:56 PM CDT [facility] Human Rhinovirus/Enterov irus Not Detected Not Detected 09/12/2023 1:56 PM CDT [facility] Influenza A Not Detected Not Detected 09/12/2023 1:56 PM CDT [facility] Influenza A H1 Not Detected Not Detected 09/12/2023 1:56 PM CDT [facility] Influenza A H1 2009 Not Detected Not Detected 09/12/2023 1:56 PM CDT [facility] Influenza A H3 Not Detected Not Detected 09/12/2023 1:56 PM CDT [facility] Influenza B Not Detected Not Detected 09/12/2023 1:56 PM CDT [facility] Parainfluenza Virus 1 Not Detected Not Detected 09/12/2023 1:56 PM CDT [facility] Parainfluenza Virus 2 Not Detected Not Detected 09/12/2023 1:56 PM CDT [facility] Parainfluenza Virus 3 Not Detected Not Detected 09/12/2023 1:56 PM CDT [facility] Parainfluenza Virus 4 Not Detected Not Detected 09/12/2023 1:56 PM CDT [facility] Respiratory Syncytial Virus Not Detected Not Detected 09/12/2023 1:56 PM CDT [facility] Bordetella parapertussis Not Detected Not Detected 09/12/2023 1:56 PM CDT [facility] Bordetella pertussis Not Detected Not Detected 09/12/2023 1:56 PM CDT [facility] Chlamydophila pneumoniae Not Detected Not Detected 09/12/2023 1:56 PM CDT [facility] Mycoplasma pneumoniae Not Detected Not Detected 09/12/2023 1:56 PM CDT [facility] Swab Nasopharyngeal structure / Unknown Non-blood Collection / Unknown 09/12/2023 12:55 PM CDT 09/12/2023 1:01 PM CDT Narrative [facility] - 09/12/2023 1:56 PM CDT The assay is a qualitative multiplex PCR assay to aid in the diagnosis of respiratory pathogens through simultaneous qualitative detection and identification of multiple pathogens directly from nasopharyngeal swabs (ROLL SCALE MAN) from individuals with respiratory symptoms. Testing is performed using the [employer] Respiratory Panel 2.1 (RP2.1) on the [employer] System. The following organisms are identified using the [employer] RP 2.1 Panel: Adenovirus, Human Coronavirus (229E, HKU1, NL63, and OC43), Severe Acute Respiratory Syndrome Coronavirus 2 (SARS-CoV-2), Human Metapneumovirus, Human Rhinovirus/Enterovirus, Influenza A, including subtypes (H1, H3 and H1-2009), Influenza B, Parainfluenza Virus (1, 2, 3, and 4), Respiratory Syncytial Virus, Bordetella parapertussis, Bordetella pertussis, Chlamydia pneumoniae, and Mycoplasma pneumoniae A result of Not Detected" does not exclude the possibility of the presence of one or more of the pathogens at or below the detection limits of this assay nor does exclude the possibility of pathogens not detected by this panel. Non-infectious causes of respiratory symptoms should also be considered in such cases. Internal controls are used to monitor all stages of the testing process including amplification inhibition. If inhibition is detected, testing is repeated and if inhibition is confirmed the specimen is resulted as "Invalid". When an "Invalid" result occurs, it is recommended to wait 3 days before submitting a new specimen for testing if clinically indicated. This is an FDA-approved assay and its performance characteristics were verified by the microbiology laboratory at the [facility] (CLIA Accreditation # [id number] and CAP Accreditation # [id number]). Results must be interpreted within the context of all relevant clinical and laboratory findings. Assay should not be used for monitoring response to therapy. Naida Kelley APRN MICROBIOLOGY - [facility] ORDERABLES [facility] Unless otherwise noted, all lab tests performed by: Division of Pathology and Laboratory Medicine [address] [place] [id number] * (ABNORMAL) Comprehensive Metabolic Panel (09/12/2023 3:52 AM CDT) Only the most recent of2 resultswithin the time period is included. Bilirubin Total 0.3 0.0 - 1.2 mg/dL 09/12/2023 4:51 AM CDT [facility] Comment:Indocyanine Green (I CG) may cause falsely elevated bilirubin results. Total and direct bilirubin must not be measured from samples containing indocyanine green. False elevation of total bilirubin can be seen in patients with IgG concentrations above 28 g/L. eGFR 104 >=60 mL/min/1. 73 sq. m 09/12/2023 4:51 AM CDT [facility] Comment: The eGFRcr is calculated with the 2020 CKD-EPI creatinine equation using creatinine, patient's age, and sex for adults 18 years of age and older. Other factors, especially muscle mass, may affect accuracy and need to be considered. According to the Kidney Disease: Improving Global Outcomes (KDIGO) CKD Work Group 2012 Clinical Practice Guideline, chronic kidney disease (CKD) is defined as the abnormalities of kidney structure or function, present for more than 3 months, with implications for health. CKD should be classified by cause, GFR category, and albuminuria category. KDIGO guidelines provide the following GFR categories. Stage / Description / GFR mL/min/1.73 m2: G1* / Normal or high / >= 90 G2* / Mildly decreased / 60-89 G3a / Mildly to moderately decreased / 45-59 G3b / Moderately to severely decreased / 30-44 G4 / Severely decreased / 15-29 G5 / Kidney failure / <15 *In the absence of evidence of kidney damage, neither G1 nor G2 fulfill criteria for CKD. Tot Protein 6.7 6.4 - 8.3 gm/dL 09/12/2023 4:51 AM [facility] Calcium Level Total 9.2 8.2 - 10.2 mg/dL 09/12/2023 4:51 AM T [facility] Alkaline Phosphatase 476(H) 35 - 104 U/L 09/12/2023 4:51 AM [facility] Albumin Level 2.9(L) 3.5 - 5.2 gm/dL 09/12/2023 4:51 AM T [facility] AST 60(H) <=32 U/L 09/12/2023 4:51 AM [facility] ALT 34(H) <=33 U/L 09/12/2023 4:51 AM [facility] Sodium Level 136 136 - 145 mmol/L 09/12/2023 4:51 AM [facility] Potassium Level 3.8 3.4 - 4.5 mmol/L 09/12/2023 4:51 AM [facility] Chloride 101 98 - 107 mmol/L 09/12/2023 4:51 AM [facility] CO2 26 22 - 29 mmol/L 09/12/2023 4:51 AM [facility] Anion Gap 9 4 - 14 mmol/L 09/12/2023 4:51 AM [facility] Creatinine 0.56 0.51 - 0.95 mg/dL 09/12/2023 4:51 AM [facility] BUN 7 6 - 23 mg/dL 09/12/2023 4:51 AM [facility] Glucose Level 108(H) 70 - 99 mg/dL 09/12/2023 4:51 AM [facility] Comment: Effective 09/15/15, the glucose reference intervals have been updated based on [place] Diabetes Association guidelines (Standards of Medical Care in Diabetes 2016. Diabetes Care 2016; 39: S13-S22). Fasting blood glucose: Normal: 70-99 mg/dL Impaired fasting glucose (increased risk for diabetes or pre-diabetes): 100-125 mg/dL Diabetes mellitus: >/=126 mg/dL Random blood glucose: Normal: 70-199 mg/dL Note: Random glucose >100 mg/dL is associated with increased risk for diabetes. Blood Peripheral blood specimen / Unknown Venipuncture / Unknown 09/12/2023 3:52 AM CDT 09/12/2023 4:16 AM CDT Marcell Jordan GEODETIC ENGINEER LAB BLOOD ORDERABLES [facility] Unless otherwise noted, all lab tests performed by: Division of Pathology and Laboratory Medicine [address] [place] [id number] * CT Chest Pulmonary Embolism with Contrast (09/11/2023 2:18 PM CDT) Anatomical Region Laterality Modality Chest Computed Tomogra phy 09/11/2023 2:31 PM CDT Impressions 09/11/2023 2:43 PM CDT 1. No evidence of pulmonary embolism. No acute process in the chest. 2. A few solid pulmonary nodules measuring up to 3 mm are nonspecific. 3. Lymph nodes along the right anterior hemidiaphragm and adjacent to the distal esophagus are suspicious for metastatic disease. 4. The CT of the abdomen/pelvis is reported separately. ACTIONABLE ITEMS/RECOMMENDATIONS*: None. *An Actionable Finding is a finding that may be unrelated to the original reason for imaging but potentially actionable, meaning further investigation may be necessary. The Actionable Findings Vigilance Unit (AFVU) assists medical providers with responding to additional radiologic findings that are unexpected and potentially actionable. Narrative 09/11/2023 2:43 PM CDT FULL RESULT: Examination: CT CHEST PULMONARY EMBOLISM W CONTRAST on 09/11/2023 2:18 PM. Clinical History: Intractable abdominal pain. Dyspnea Indication: Cancer complication or comorbidity assessment Comparison: None Technique: CT of the chest is performed using intravenous contrast. Findings: Lungs/Airways/Pleura: The trachea and central airways are clear. A few pulmonary nodules measuring up to 3 mm are present. Linear volume loss is present in the lower lobes. There is no airspace disease. The pleural spaces are clear. Neck/Mediastinum/Nodes/Heart: There are lymph nodes along the anterior mediastinum measuring up to 8 mm. There is a 12 mm lymph node adjacent to the distal esophagus. The heart size is normal. There is no pericardial effusion. The great vessels are normal in diameter. Upper abdomen: Multiple low-density lesions are present in the liver. Multiple enlarged lymph nodes are noted in the upper abdomen. Bones/Soft Tissues: There is no suspicious osseous lesion. Procedure Note Dallas Castillo MD - 09/11/2023 FULL RESULT: Examination: CT CHEST PULMONARY EMBOLISM W CONTRAST on 09/11/2023 2:18PM. Clinical History: Intractable abdominal pain. Dyspnea Indication: Cancer complication or comorbidity assessment Comparison: None Technique: CT of the chest is performed using intravenous contrast. Findings: Lungs/Airways/Pleura: The trachea and central airways are clear. A fewpulmonary nodules measuring up to 3 mm are present. Linear volume loss ispresent in the lower lobes. There is no airspace disease. The pleuralspaces are clear. Neck/Mediastinum/Nodes/Heart: There are lymph nodes along the anteriormediastinum measuring up to 8 mm. There is a 12 mm lymph node adjacent tothe distal esophagus. The heart size is normal. There is no pericardial effusion. The greatvessels are normal in diameter. Upper abdomen: Multiple low-density lesions are present in the liver.Multiple enlarged lymph nodes are noted in the upper abdomen. Bones/Soft Tissues: There is no suspicious osseous lesion. IMPRESSION: 1. No evidence of pulmonary embolism. No acute process in the chest. 2. A few solid pulmonary nodules measuring up to 3 mm are nonspecific. 3. Lymph nodes along the right anterior hemidiaphragm and adjacent to thedistal esophagus are suspicious for metastatic disease. 4. The CT of the abdomen/pelvis is reported separately. ACTIONABLE ITEMS/RECOMMENDATIONS*: None. *An Actionable Finding is a finding that may be unrelated to the originalreason for imaging but potentially actionable, meaning furtherinvestigation may be necessary. The Actionable Findings Vigilance Unit(AFVU) assists medical providers with responding to additional radiologicfindings that are unexpected and potentially actionable. Mitchel Torrez MD [facility] [place] ORDERABLES * CT Abdomen Pelvis with IV Contrast (09/11/2023 2:18 PM CDT) Anatomical Region Laterality Modality Abdomen, Pelvis Computed Tomogra phy 09/11/2023 2:44 PM CDT Impressions 09/11/2023 3:02 PM CDT 1. No acute findings. 13 cm primary malignancy in the rectosigmoid bowel. Status post diverting ileostomy. 2. Very extensive mesenteric and abdominal lymphadenopathy. 3. Very extensive hepatic metastatic disease. 4. Likely metastatic involvement of the left ovary. 5. Early areas of peritoneal disease. ACTIONABLE ITEMS/RECOMMENDATIONS*: None. *An Actionable Finding is a finding that may be unrelated to the original reason for imaging but potentially actionable, meaning further investigation may be necessary. The Actionable Findings Vigilance Unit (AFVU) assists medical providers with responding to additional radiologic findings that are unexpected and potentially actionable. Narrative 09/11/2023 3:02 PM CDT FULL RESULT: Examination: CT ABDOMEN PELVIS W CONTRAST on 09/11/2023 2:18 PM. Clinical History: Intractable abdominal pain Dyspnea. Indication: abdominal pain. Comparison: None. Technique: CT ABDOMEN PELVIS W CONTRAST. FINDINGS: Lower Thorax: No suspicious pulmonary nodules in the lung bases. Prominent cardiophrenic lymph nodes are present, likely pathologic. A necrotic paraesophageal node is seen (8/32) measuring 1.3 cm. Hepatobiliary: Innumerable nodules throughout the hepatic parenchyma consistent with diffuse metastatic disease. No biliary dilatation. No cholecystitis. Spleen: No splenomegaly. Pancreas: No mass or ductal dilatation. Adrenal Glands: No mass. Kidneys, Ureters, Bladder: No hydronephrosis. Some tiny cortical hypodensities are seen in the kidneys bilaterally, too small to characterize. No clearly suspicious lesions. No bladder mass. Gastrointestinal Tract: There is fungating, irregular thickening of the rectosigmoid over a 13 cm segment (8/146) concerning for primary malignancy. Loops of small bowel are partially tethered in this location (8/141, 147). The patient is status post diverting ileostomy in the right lower quadrant. No dilated loops of bowel. Pelvic Organs: The uterus is anteverted, with primary tumor located along the posterior myometrium. Left ovary is enlarged and solid in appearance (8/157), measuring up to 4 cm in diameter. This likely harbors metastatic disease. Normal right ovary. Peritoneum/Retroperitoneum: Areas of spiculation between bowel loops in the pelvis (8/145, 142) likely reflect areas of peritoneal disease. Trace ascites near the tip of the liver (8/88). Lymph Nodes: There is mesenteric lymphadenopathy along the tumor drainage pathway (8/138, 133, 129, 124, 117) within the sigmoid mesentery. Enlarged superior hemorrhoidal nodes are seen (8/139, 149, 146, 136). Multiple enlarged nodes in the upper abdomen, including several in the portacaval space, as well as celiac, gastric, gastrohepatic, periportal, peripancreatic, and common hepatic artery stations. Musculoskeletal: No suspicious skeletal lesion. Procedure Note Marie Johnston MD - 09/11/2023 FULL RESULT: Examination: CT ABDOMEN PELVIS W CONTRAST on 09/11/2023 2:18 PM. Clinical History: Intractable abdominal pain Dyspnea. Indication: abdominal pain. Comparison: None. Technique: CT ABDOMEN PELVIS W CONTRAST. FINDINGS: Lower Thorax: No suspicious pulmonary nodules in the lung bases. Prominentcardiophrenic lymph nodes are present, likely pathologic. A necroticparaesophageal node is seen (8/32) measuring 1.3 cm. Hepatobiliary: Innumerable nodules throughout the hepatic parenchymaconsistent with diffuse metastatic disease. No biliary dilatation. Nocholecystitis. Spleen: No splenomegaly. Pancreas: No mass or ductal dilatation. Adrenal Glands: No mass. Kidneys, Ureters, Bladder: No hydronephrosis. Some tiny corticalhypodensities are seen in the kidneys bilaterally, too small tocharacterize. No clearly suspicious lesions. No bladder mass. Gastrointestinal Tract: There is fungating, irregular thickening of therectosigmoid over a 13 cm segment (8/146) concerning for primarymalignancy. Loops of small bowel are partially tethered in this location(8/141, 147). The patient is status post diverting ileostomy in the rightlower quadrant. No dilated loops of bowel. Pelvic Organs: The uterus is anteverted, with primary tumor located alongthe posterior myometrium. Left ovary is enlarged and solid in appearance(8/157), measuring up to 4 cm in diameter. This likely harbors metastaticdisease. Normal right ovary. Peritoneum/Retroperitoneum: Areas of spiculation between bowel loops inthe pelvis (8/145, 142) likely reflect areas of peritoneal disease. Traceascites near the tip of the liver (8/88). Lymph Nodes: There is mesenteric lymphadenopathy along the tumor drainagepathway (8/138, 133, 129, 124, 117) within the sigmoid mesentery. Enlargedsuperior hemorrhoidal nodes are seen (8/139, 149, 146, 136). Multipleenlarged nodes in the upper abdomen, including several in the portacavalspace, as well as celiac, gastric, gastrohepatic, periportal,peripancreatic, and common hepatic artery stations. Musculoskeletal: No suspicious skeletal lesion. IMPRESSION: 1. No acute findings. 13 cm primary malignancy in the rectosigmoid bowel.Status post diverting ileostomy. 2. Very extensive mesenteric and abdominal lymphadenopathy. 3. Very extensive hepatic metastatic disease. 4. Likely metastatic involvement of the left ovary. 5. Early areas of peritoneal disease. ACTIONABLE ITEMS/RECOMMENDATIONS*: None. *An Actionable Finding is a finding that may be unrelated to the originalreason for imaging but potentially actionable, meaning furtherinvestigation may be necessary. The Actionable Findings Vigilance Unit(AFVU) assists medical providers with responding to additional radiologicfindings that are unexpected and potentially actionable. Mitchel Torrez MD IMG CT ORDERABLES * X-ray Abdomen AP (09/11/2023 12:09 PM CDT) Anatomical Region Laterality Modality Abdomen Digital Radiogra phy 09/11/2023 12:4 4 PM CDT Impressions 09/11/2023 12:45 PM CDT No bowel obstruction. Moderate amount of retained stool in the colon. Narrative 09/11/2023 12:45 PM CDT FULL RESULT: Examination: XR ABDOMEN AP on 09/11/2023 12:09 PM Clinical History: Colorectal cancer Indication: Abdominal Pain. Comparison: None. TECHNIQUE: XR ABDOMEN AP, 2 images FINDINGS: Lung bases are clear. No evidence of bowel obstruction. Moderate amount of retained stool is in the colon. No intraperitoneal free air. Procedure Note Patrizia Gonzales MD - 09/11/2023 FULL RESULT: Examination: XR ABDOMEN AP on 09/11/2023 12:09 PM Clinical History: Colorectal cancer Indication: Abdominal Pain. Comparison: None. TECHNIQUE: XR ABDOMEN AP, 2 images FINDINGS: Lung bases are clear. No evidence of bowel obstruction. Moderate amount of retained stool is inthe colon. No intraperitoneal free air. IMPRESSION: No bowel obstruction. Moderate amount of retained stool in the colon. Marcell [place] MD IMG DIAGNOSTIC IMAGI NG ORDERABLES * Fractionated Bilirubin (09/11/2023 11:31 AM CDT) Bilirubin Direct 0.2 0.0 - 0.3 mg/dL 09/11/2023 12:29 PM CDT [facility] Comment:Indocyanine Green (I CG) may cause falsely elevated bilirubin results. Total and direct bilirubin must not be measured from samples containing indocyanine green. Bilirubin Indirect 0.5 0.0 - 0.9 mg/dL 09/11/2023 12:29 PM CDT [facility] Bilirubin Total 0.7 0.0 - 1.2 mg/dL 09/11/2023 12:29 PM CDT [facility] Comment: Indocyanine Green (ICG) may cause falsely elevated bilirubin results. Total and direct bilirubin must not be measured from samples containing indocyanine green. False elevation of total bilirubin can be seen in patients with IgG concentrations above 28 g/L. Indocyanine Green (ICG) may cause falsely elevated bilirubin results. Total and direct bilirubin must not be measured from samples containing indocyanine green. False elevation of total bilirubin can be seen in patients with IgG concentrations above 28 g/L. Blood Peripheral blood specimen / Unknown Venipuncture / Unknown 09/11/2023 11:31 AM CDT 09/11/2023 11:41 AM CDT Marcell [place] MD LAB BLOOD ORDERABLES [facility] Unless otherwise noted, all lab tests performed by: Division of Pathology and Laboratory Medicine [address] [place] [id number] * (ABNORMAL) Lipase (09/11/2023 11:31 AM CDT) Lipase Level 8(L) 13 - 60 U/L 09/11/2023 12:29 PM CDT [facility] Blood Peripheral blood specimen / Unknown Venipuncture / Unknown 09/11/2023 11:31 AM CDT 09/11/2023 11:41 AM CDT Narrative [facility] - 09/11/2023 12:29 PM CDT Reference range established based on adult population Marcell [place] MD LAB BLOOD ORDERABLES Performing Organization Address [facility] de Phone Number [facility] Unless otherwise noted, all lab tests performed by: Division of Pathology and Laboratory Medicine [address] [place] [id number] * (ABNORMAL) LDH (09/11/2023 11:31 AM CDT) LDH 707(H) 135 - 214 U/L 09/11/2023 12:22 PM CDT [facility] Blood Peripheral blood specimen / Unknown Venipuncture / Unknown 09/11/2023 11:31 AM CDT 09/11/2023 11:41 AM CDT Narrative [facility] - 09/11/2023 12:22 PM CDT Results greater than 1651 U/L may not be reliable due to matrix effect with extended dilution as it exceeds the molder's recommended limit. Caution should be exercised when interpreting such values and done in conjunction with clinical context. Marcell [place] MD LAB BLOOD ORDERABLES Performing Organization Address [facility] de Phone Number [facility] Unless otherwise noted, all lab tests performed by: Division of Pathology and Laboratory Medicine [address] [place] [phone] * Amylase (09/11/2023 11:31 AM CDT) Amylase Level 42 28 - 100 U/L 09/11/2023 12:29 PM CDT [facility] Blood Peripheral blood specimen / Unknown Venipuncture / Unknown 09/11/2023 11:31 AM CDT 09/11/2023 11:41 AM CDT Marcell [place] MD LAB BLOOD ORDERABLES [facility] Unless otherwise noted, all lab tests performed by: Division of Pathology and Laboratory Medicine [address] [place] [id number] * OSI CT Abdomen and Pelvis (09/08/2023 4:05 PM CDT) Only the most recent of4 resultswithin the time period is included. Narrative Systemgenerated, Documentation - 09/24/2023 4:05 PM CDT Study acquired at another institution. For comparison only. No [facility] originated interpretation requested or available. Addy PHAM OUTSIDE IMAGE OR DERABLES * OSI MRI Pelvis (07/24/2023 4:06 PM CDT) Only the most recent of3 resultswithin the time period is included. Narrative Systemgenerated, Documentation - 09/24/2023 4:06 PM CDT Study acquired at another institution. For comparison only. No [facility] originated interpretation requested or available. Addy PHAM OUTSIDE IMAGE OR DERABLES * OSI CT CHEST (07/12/2023 4:07 PM CDT) Narrative Systemgenerated, Documentation - 09/24/2023 4:07 PM CDT Study acquired at another institution. For comparison only. No [facility] originated interpretation requested or available. Addy PHAM OUTSIDE IMAGE OR DERABLES * Pathology Outside Interpretation (07/11/2023) Materials Received Accession#, Stained, Block, Unstained Collected Received A. [id number], 12 SS, 0 BLOCKS, 0 USS 07/11/2023 09/25/2023 09/26/2023 10:55 AM CDT [facility] Diagnosis Outside ([id number], 12 SS, 0 BLOCKS, 0 USS, collected on 07/11/2023): A. Liver, biopsy: METASTATIC ADENOCARCINOMA, CONSISTENT WITH COLORECTAL ORIGIN. B. Rectum, mass, biopsy: INVASIVE MODERATELY DIFFERENTIATED ADENOCARCINOMA. (SEE COMMENT) DT/FGT 09/26/2023 10:55 AM CDT [facility] Comment Submitted immunohistochemical stains performed on block B1 show the tumor cells retain nuclear expression of mismatch repair protein (MLH1, MSH2, MSH6, and PMS2). 09/26/2023 10:55 AM CDT [facility] Biomarker Block(s) Tumor block: B1 Normal block: A1 Metastatic Tumor Block: A1 09/26/2023 10:55 AM CDT [facility] Disclaimer "Some tests reported here may have been developed and performance characteristics determined by [facility] Pathology and Laboratory Medicine. These tests have not been specifically cleared or approved by the U.S. Food and Drug Administration. If applicable, controls were reviewed and showed appropriate reactivity." 09/26/2023 10:55 AM CDT [facility] Tissue 07/11/2023 09/25/2023 8:4 6 AM CDT [facility] ORDER[facility] [address] [place] [id number], * OSI Chest (07/10/2023 4:07 PM CDT) Narrative Systemgenerated, Documentation - 09/24/2023 4:07 PM CDT Study acquired at another institution. For comparison only. No [facility] originated interpretation requested or available. Addy Hadley MD IMG OUTSIDE IMAGE OR DERABLES after 10/16/2022 Advance Directives * Full Code (Latest Code Status on File) Date Activated Date Inactivated Comments 09/11/2023 2:50 PM 09/20/2023 1:43 PM Care Teams [employer] Consultant Relationship Specialty Start Date End Date Radha Frausto, RN [address] [place], [place] [email or web address] Intake Nurse Navigator Nursing 09/25/23
[2023-10-16] MEDS ORDERED: METHYLPREDNISOLONE 125 MG INJ ONE (17:21)
[2023-10-16] MEDS ORDERED: DIPHENHYDRAMINE 25 MG TAB/CAP ONE (17:22)
--- NOTE | 2023-10-16 18:13 | EDPHYS ---
Physician Documentation [facility] Name: Helen Richardson Age: 62 yrs Sex: Female : 1960 Arrival Date: 10/16/2023 Time: 17:00 Bed 18 Private MD: ED Physician Young Galeas HPI: 10/15 17:18 This 62 yrs old Female presents to ER via Wheelchair with complaints of sp3 Allergic Reaction. 17:18 62-year-old female with a history of hyperlipidemia, hypertension presents to the ED sp3 from CT scan after allergic reaction to contrast dye for outpatient CT scan of the abdomen pelvis. Initially contrast dye was injected which point patient felt flushing and a rash develop on her face and upper torso. IV was in the right upper extremity in the wrist. No airway compromise, pharyngeal swelling, tongue swelling or other anaphylactic type reaction. Patient denies headache, neck pain, chest pain, shortness of breath, abdominal pain currently, vomiting, diarrhea, or any other signs or symptoms on ROS at this time.. Historical: - Allergies: 17:16 No Known Allergies; ld1 - PMHx: 17:16 High Cholesterol; Hypertension; ld1 - PSHx: 17:16 colon surgery ileostomy (en); ld1 - Immunization history:: Adult Immunizations up to date. - Infectious Disease History:: Denies. - Social history:: Smoking status: Patient denies any tobacco usage or history of. ROS: 17:20 Constitutional: Negative for fever, chills, and weight loss, Eyes: Negative for injury, sp3 pain, redness, and discharge, Neck: Negative for injury, pain, and swelling, Cardiovascular: Negative for chest pain, palpitations, and edema, Respiratory: Negative for shortness of breath, cough, wheezing, and pleuritic chest pain, Abdomen/GI: Negative for abdominal pain, nausea, vomiting, diarrhea, and constipation, Back: Negative for injury and pain, MS/Extremity: Negative for injury and deformity, Neuro: Negative for headache, weakness, numbness, tingling, and seizure, Psych: Negative for depression, anxiety, suicide ideation, homicidal ideation, and hallucinations, Endocrine: Negative for neck swelling, polydipsia, polyuria, polyphagia, and marked weight changes, 17:20 All other systems are negative, Exam: 17:20 Constitutional: This is a well developed, well nourished patient who is awake, alert, sp3 and in no acute distress. Head/Face: Normocephalic, atraumatic. Eyes: Pupils equal round and reactive to light, extra-ocular motions intact. Lids and lashes normal. Conjunctiva and sclera are non-icteric and not injected. Cornea within normal limits. Periorbital areas with no swelling, redness, or edema. Neck: Trachea midline, no thyromegaly or masses palpated, and no cervical lymphadenopathy. Supple, full range of motion without nuchal rigidity, or vertebral point tenderness. No Meningismus. Chest/axilla: Normal chest wall appearance and motion. Nontender with no deformity. No lesions are appreciated. Cardiovascular: Regular rate and rhythm with a normal S1 and S2. No gallops, murmurs, or rubs. Normal PMI, no JVD. No pulse deficits. Respiratory: Lungs have equal breath sounds bilaterally, clear to auscultation and percussion. No rales, rhonchi or wheezes noted. No increased work of breathing, no retractions or nasal flaring. Abdomen/GI: Soft, non-tender, with normal bowel sounds. No distension or tympany. No guarding or rebound. No evidence of tenderness throughout. Back: No spinal tenderness. No costovertebral tenderness. Full range of motion. MS/ Extremity: Pulses equal, no cyanosis. Neurovascular intact. Full, normal range of motion. Neuro: Awake and alert, GCS 15, oriented to person, place, time, and situation. Cranial nerves II-XII grossly intact. Motor strength 5/5 in all extremities. Sensory grossly intact. Cerebellar exam normal. Normal gait. Psych: Awake, alert, with orientation to person, place and time. Behavior, mood, and affect are within normal limits. 17:20 Skin: Urticaria noted on the face and neck with no airway compromise.. Vital Signs: 17:30 BP 132 / 74; Pulse 76; Resp 18; Temp 97.3(TE); Pulse Ox 100% on R/A; Height 5 ft. 2 in. ld1 ; Pain 0/10; 17:30 Pain Scale: Adult ld1 MDM: 17:03 Patient medically screened. sp3 17:21 Data reviewed: vital signs, nurses notes. ED course: 62-year-old female with allergic sp3 reaction to contrast dye. Patient is IV was taken out after incident and she is a difficult stick. Patient requests alternate method of medication delivery. Will give Solu-Medrol 125 mg IM and p.o. Benadryl and will reevaluate. Rash is already improving by the time patient got to the ED from CT scan.. 18:11 ED course: All symptoms fully resolved. We will safely discharge patient home at this sp3 time. Of note, patient has new metastatic cancer that has been recently diagnosed at was also viewed on CT by me. Currently however her vital signs are normal and she feels at her baseline.. Administered Medications: 17:30 Drug: MethylPREDNISolone Sodium Succinate IM 125 mg IM once Route: IM; Site: right ld1 gluteus; 18:32 Follow up: Response: No adverse reaction ld1 17:30 Drug: diphenhydrAMINE PO 25 mg PO once Route: PO; ld1 18:32 Follow up: Response: No adverse reaction ld1 Disposition Summary: 10/16/23 18:12 Discharge Ordered Notes: Location: Home sp3 Condition: Stable sp3 Diagnosis - Allergic reaction sp3 Followup: sp3 - With: Private Physician - When: Upon discharge from the Emergency Department - Reason: Recheck today's complaints Discharge Instructions: - Discharge Summary Sheet sp3 - Hives sp3 Forms: - Medication Reconciliation Form sp3 - Antibiotic Education sp3 - Prescription Opioid Use sp3 - Patient Portal Instructions sp3 - Leadership Thank You Letter sp3 Prescriptions: - Prednisone 20 mg Oral tablet - take 2 tablets ORAL route once daily for 3 days; 6 tablet; Refills: 0, Product sp3 Selection Permitted Signatures: Christy Thomson RN RN ld1 Young Galeas MD MD sp3
--- NOTE | 2023-10-16 18:13 | ER ---
Nurse's Notes [facility] Name: Helen Richardson Age: 62 yrs Sex: Female : 1960 Arrival Date: 10/16/2023 Time: 17:00 Bed 18 Private MD: Diagnosis: Allergic reaction Presentation: 10/15 17:16 Chief complaint: Patient states: Came from CT due to possible allergic reaction to ld1 contrast. Pt reports itching to face. Coronavirus screen: At this time, the client does not indicate any symptoms associated with coronavirus-19. Ebola Screen: No symptoms or risks identified at this time. Onset: The symptoms/episode began/occurred suddenly. Anaphylaxis evaluation, no signs or symptoms of anaphylaxis were noted. Initial Sepsis Screen: Does the patient meet any 2 criteria? No. Patient's initial sepsis screen is negative. Does the patient have a suspected source of infection? No. Patient's initial sepsis screen is negative. Risk Assessment: Do you want to hurt yourself or someone else? Patient reports no desire to harm self or others. Onset of symptoms was October 16, 2023. 17:16 Method Of Arrival: Wheelchair ld1 17:16 Acuity: YOGESH 2 ld1 Triage Assessment: 17:16 General: Appears in no apparent distress. comfortable, Behavior is calm, cooperative, ld1 appropriate for age. Pain: Denies pain. EENT: No signs and/or symptoms were reported regarding the EENT system. Neuro: Level of Consciousness is awake, alert, obeys commands, Oriented to person, place, time, situation. Cardiovascular: Capillary refill < 3 seconds Patient's skin is warm and dry. Respiratory: Airway is patent Respiratory effort is even, unlabored. GI: Abdomen is flat, non-distended. : No signs and/or symptoms were reported regarding the genitourinary system. Derm: Reports itching, since [address] to face. Musculoskeletal: No signs and/or symptoms reported regarding the musculoskeletal system. Historical: - Allergies: 17:16 No Known Allergies; ld1 - PMHx: 17:16 High Cholesterol; Hypertension; ld1 - PSHx: 17:16 colon surgery ileostomy (en); ld1 - Immunization history:: Adult Immunizations up to date. - Infectious Disease History:: Denies. - Social history:: Smoking status: Patient denies any tobacco usage or history of. Screenin:18 [facility] ED Fall Risk Assessment (Adult) History of falling in the last 3 months, ld1 including since admission No falls in past 3 months (0 pts) Confusion or Disorientation No (0 pts) Intoxicated or Sedated No (0 pts) Impaired Gait No (0 pts) Mobility Assist Device Used No (0 pt) Altered Elimination No (0 pt) Score/Fall Risk Level 0 - 2 = Low Risk Oriented to surroundings, Maintained a safe environment, Educated pt \T\ family on fall prevention, incl call for assistance when getting out of bed, Assessed \T\ reinforced patient's understanding of fall precautions, Provided non-skid footwear, Hourly rounding (assess needs \T\ fall precautionary measures) done, Used ambulatory aids as needed (educated on \T\ assisted with), Used gait belt as appropriate. Abuse screen: Denies threats or abuse. Denies injuries from another. Nutritional screening: No deficits noted. Tuberculosis screening: No symptoms or risk factors identified. Assessment: 17:18 Reassessment: See triage assessment. Respiratory: Airway is patent Respiratory effort ld1 is even, unlabored, Breath sounds are clear bilaterally. 18:07 Reassessment: Patient appears in no apparent distress at this time. No changes from ld1 previously documented assessment. Patient and/or family updated on plan of care and expected duration. Pain level reassessed. Patient is alert, oriented x 3, equal unlabored respirations, skin warm/dry/pink. Vital Signs: 17:30 BP 132 / 74; Pulse 76; Resp 18; Temp 97.3(TE); Pulse Ox 100% on R/A; Height 5 ft. 2 in. ld1 ; Pain 0/10; 17:30 Pain Scale: Adult ld1 ED Course: 17:03 Patient arrived in ED. mb9 17:03 Young Galeas MD is Attending Physician. sp3 17:16 Christy Thomson, [place] is Primary Nurse. ld1 17:16 Arm band placed on right wrist. ld1 17:17 Triage completed. ld1 17:18 Patient has correct armband on for positive identification. Placed in gown. Bed in low ld1 position. Call light in reach. Side rails up X2. store hand on. Pulse ox on. NIBP on. Door closed. Noise minimized. Warm blanket given. 17:18 No provider procedures requiring assistance completed. ld1 18:32 Patient did not have IV access during this emergency room visit. ld1 Administered Medications: 17:30 Drug: MethylPREDNISolone Sodium Succinate IM 125 mg IM once Route: IM; Site: right ld1 gluteus; 18:32 Follow up: Response: No adverse reaction ld1 17:30 Drug: diphenhydrAMINE PO 25 mg PO once Route: PO; ld1 18:32 Follow up: Response: No adverse reaction ld1 Medication: 17:18 VIS not applicable for this client. ld1 Outcome: 18:12 Discharge ordered by . sheba 18:31 Discharged to home ambulatory, with family, ld1 18:31 Condition: stable 18:31 Discharge instructions given to patient, family, Instructed on discharge instructions, follow up and referral plans. Demonstrated understanding of instructions, follow-up care, medications, Prescriptions given X 1, 18:32 Patient left the ED. ld1 Signatures: Christy Thomson RN RN ld1 Young Galeas MD MD sp3 Lolly Mccartney RN RN mb9
[2023-10-16 18:37] VITALS: BP 132/74; TEMP 97.3; O2SAT 100
== END 2023-10-16 18:32 | disposition home or self-care (01) ==
LOC: ER 17:00
DX: L50.9 Urticaria, unspecified (principal)
CPT/HCPCS: 96372; 99284; J2919

== ENCOUNTER 2023-10-18 11:22 | Day surgery (SDC) | payer OTHER ==
[2023-10-17 13:42] LABS: Absolute Basophils 0.1 K/uL (0-0.5); Absolute Lymphocytes (CBC) 2.1 K/uL (0.7-4.9); Absolute Monocytes 0.9 K/uL (0.1-1.3); Absolute Neutrophil 16.2 K/uL (1.8-8.0); Basophils % 0.3 % (0-1.3); Eosinophils % 0.1 % (0-4.4); MCH 26.2 pg (27.0-35.0); MCHC 31.5 g/dL (32.0-36.0); MCV 83.2 fL (80-100); MPV 7.1 fL (7.6-11.3); Monocytes % 4.5 % (3.3-12.3); Neutrophils % 84.1 % (41.7-73.7); Platelets 563 thou/uL (152-406); RBC Red Blood Cell Count 4.57 M/uL (3.86-4.86); Red Cell Distribution Width 18.8 % (12.1-15.2)
[2023-10-17 13:50] LABS: Anion Gap 9.8 mEq/L (5.0-15.0); Potassium 3.8 mEq/L (3.5-5.1)
[2023-10-18] MEDS: Ringers Lactate 1,000 ML IV ONE (11:42)
[2023-10-18] MEDS ORDERED: NA CHLORIDE 0.9% 50 ML ONE (11:46)
[2023-10-18] MEDS ORDERED: ONDANSETRON 4 MG/2 ML VIAL ONE (13:15)
[2023-10-18] MEDS ORDERED: LIDOCAINE 2% MPF 5 ML VIAL ONE (13:15)
[2023-10-18] MEDS ORDERED: FENTANYL CITR 100 MCG/2 ML ONE ×2 (13:15→15:44)
[2023-10-18] MEDS ORDERED: MIDAZOLAM HCL 2 MG/2 ML INJ ONE (13:15)
[2023-10-18] MEDS ORDERED: propofoL 200 MG/20 ML VIAL IV ONE (13:15)
[2023-10-18] MEDS: CEFAZOLIN SODIUM 1 GM/VIAL ONE (13:48)
[2023-10-18] MEDS ORDERED: EPHEDRINE SULF 50 MG/ML VIAL ONE (13:48)
[2023-10-18] MEDS: LIDOCAINE HCL/EPINEPHRINE 20 ML MDV ONE (14:06)
[2023-10-18] MEDS: HEPARIN 5000 UNIT/ML 1 ML VIAL ONE (14:08)
--- NOTE | 2023-10-18 14:42 | P.OP ---
Preoperative diagnosis: Need for Chemotherapy Access Postoperative diagnosis: Need for Chemotherapy Access Primary procedure: Placement of Chemotherapy Port Secondary procedure: Ultrasound Guidance and flouroscopy utilized Anesthesia: MAC + Local Estimated blood loss: <10 cc Specimen: None Findings: Catheter @ SVC Complications: None Implants: Power Injectable Chemotherapy port Transferred to: Recovery Room Condition: Good
--- NOTE | 2023-10-18 14:45 | RAD REPORT ---
EXAM DESCRIPTION: RAD - Fluoroscopy <1 Hour - 10/18/2023 2:32 pm CLINICAL HISTORY: Device placement central venous catheter placement FINDINGS: A central venous catheter was placed into the superior vena cava. 8 fluoroscopic spot imag es are submitted. Fluoroscopy time.5 minutes The examination was performed by Dr. Pinto
[2023-10-18] MEDS: HYDROMORPHONE HCL 1 MG/ML INJ ONE (15:20)
--- NOTE | 2023-10-18 15:47 | RAD REPORT ---
EXAM DESCRIPTION: Ana Single View10/18/2023 3:08 pm CLINICAL HISTORY: Device placement/central venous catheter placement IMPRESSION: Central venous catheter with its tip in the superior vena cava No pneumothorax
[2023-10-18 16:21] VITALS: BP 122/65; TEMP 97.4; O2SAT 100
[2023-10-18] MEDS: HYDROCODONE/APAP 5/325 MG TAB ONE (16:30)
--- NOTE | 2023-10-18 20:51 | OP ---
Date of Procedure: 10/18/2023 Surgeon: Latrell Pinto MD, Preoperative Diagnosis: Need for chemotherapy access. Postoperative Diagnosis: Need for chemotherapy access. Procedure Performed: Placement of a chemotherapy access port in the right internal jugular vein unde r fluoroscopic and the ultrasound guidance with interpretation. Anesthesia: MAC plus local with 1% lidocaine with epinephrine. Estimated Blood Loss: Less than 10 cc. Specimen: None. Findings: Catheter was at the confluence of the superior vena cava. Complications: None. Implants: Power-injectable chemotherapy port. Disposition: The patient transferred to recovery room in good condition. Procedure In Detail: After informed consent was obtained, patient was brought to the operating room, prepped and draped in the usual sterile fashion, after adequate anesthesia was achieved. The patien t was placed in steep Trendelenburg position. Using a microintroducer set under ultrasound guidance, I cannulated the right internal jugular vein without incident or complication. Dark red nonpulsatil e blood was returned from the needle, and at this point, I advanced a micro wire into the right atriu m. At this point, fluoroscopic guidance confirmed the position of the wire in the right atrium. At this point, I made a small adriana incision overlying the insertion port, placed an introducer sheath fo r the micro set over the wire and pulled the micro wire out and standard wire was advanced, at this p oint. Ectopy was appreciated, at this point. Fluoroscopic guidance confirmed the position, once aga in, of the wire, the standard wire, at this time, in the right atrium. At this point, I secured the wire and the introducer sheath, at this point. Ultimately, I localized the portion of the right ches t wall in the infraclavicular position into the insertion site using 1% lidocaine with epinephrine. I then made an incision overlying the chest wall and dissected down to the prepectoral fascia ultimat yuridia dissecting back all of the non-necessary adipose tissue, removing portions of adipose tissue to a llow for a clean landing port for subcutaneous port. At this point, using a tunneling device, I brou ght the catheter over the clavicle using the tunneling device brought out throughout the insertion si te. At this point, then I performed a sequential dilatation at the insertion site using a Seldinger technique with the introducer sheath ultimately being placed and the wire out being curled at this po int, I then advanced the catheter into the right atrium and under fluoroscopic guidance, pulled it ba ck until it was in the appropriate position at the confluence of the superior vena cava. The cathete r remained clamped at this point and I ultimately hooked up at the subcutaneous port, flushed it quit e easily, putting the lock collar on at this point and I flushed it easily and I packed with heparin super flush, at this point. The catheter to subcutaneous port was then secured to the prepectoral fa scia using interrupted four 2-0 prolene sutures in an interrupted fashion with good approximation of tissues. I flushed catheter one last time and ultimately all incision sites were then copiously irri gated and the neck incision was closed using interrupted 3-0 nylon suture. A sterile dressing placed over top. The subcutaneous port section was then closed using a 4-0 Monocryl in a running fashion. Dermabond placed over top. The patient tolerated procedure without incident or complication. Trans ferred to PACU in good condition. All counts were correct at the end of the case. KENDRA/KATERINE Voice ID: [id number] Report ID: [id number]
== END 2023-10-18 16:52 | disposition home or self-care (01) ==
LOC: OR 11:22
PROVIDERS: ATTEND Surgery
PROC: 0JH60WZ Insertion of Totally Implantable Vascular Access Device into Chest Subcutaneous Tissue and Fascia, Open Approach (ICD-10-PCS; principal; 2023-10-18 13:00)
DX: C20 Malignant neoplasm of rectum (principal); C79.9 Secondary malignant neoplasm of unspecified site
CPT/HCPCS: 85025; 80048; 36415; 71045; 76000; 36561; J1644 ×2; J2704; J2001; J2250; J3010 ×2; J1170; J2405; J7120; J0690

== ENCOUNTER 2024-03-24 13:44 | Emergency (ER) | payer OTHER ==
--- OUTSIDE RECORDS SUMMARY | 2024-03-24 13:48 | XMS REPORT | Clinical Summary ---
Author Name Unknown Organization [facility] [place] Address [address] [place] [address] Care Team Providers Care Coal Hauler Name Role Phone Radha Frausto RN Unavailable [phone] Allergies Active Allergy Reactions Criticality Noted Date Comments Opioids - Morphine Analogues Other (See Comments) 09/12/2023 Hallucination Acetaminophen-Codeine Rash Low 09/12/2023 Medications * This document contains information received from the source organization and may not represent a complete record from that organization. losartan (COZAAR) 50 mg tabletIndicati ons:hypertensi on Take 1 tablet (50 mg) by mouth daily. Active lovastatin (MEVACOR) 20 mg tabletIndicati ons:hyperlipid emia Take 1 tablet (20 mg) by mouth at bedtime. Active morphine (MS CONTIN) 15 mg ER tabletIndicati ons:Cancer associated pain Take 1 tablet (15 mg) by mouth every 12 (twelve) hours. 60 tablet 09/20/2023 9:58 AM CDT 09/18/19 24 Active oxyCODONE (ROXICODONE) 10 mg immediate release tabletIndicati ons:Cancer associated pain Take 1 tablet (10 mg) by mouth every 4 (four) hours as needed (pain and shortness of breath). 90 tablet 09/20/2023 9:58 AM CDT 09/18/19 24 Active polyethylene glycol (MIRALAX) 17 g packetIndicati ons:Intractabl e abdominal pain,Colon cancer,Nausea and vomiting Take 17 g by mouth daily. 09/20/19 Active pantoprazole (PROTONIX) 40 mg EC tabletIndicati ons:Intractabl e abdominal pain,Colon cancer,Nausea and vomiting Take 1 tablet (40 mg) by mouth every morning before breakfast. 30 tablet 09/20/2023 9:58 AM CDT 09/20/19 Active topical paste menthol-white petrolatum-zin c oxide (REMEDY CALAZIME) 0.44-20.6 % psteIndication s:Intractable abdominal pain,Colon cancer,Nausea and vomiting Apply topically to affected area(s) every 12 (twelve) hours as directed. 113 g 09/19/19 Active atorvastatin (LIPITOR) 20 mg tabletIndicati ons:hyperlipid emia Take 1 tablet (20 mg) by mouth at bedtime. 024 Discontinued Active Problems Problem Noted Date Diagnosed [...] liver 09/11/2023 Hypertension 09/11/2023 Hyperlipidemia 09/11/2023 Encounters * This document contains information received from the source organization and may not represent a complete record from that organization. Date Type Department Care Team Description 10/03/2023 Telephone [facility] - Medical Oncology [address] [place] [address], [address]th [place] [address] Radha Frausto, RN Follow-up 09/25/2023 Telephone Colorectal Center - Medical Oncology [facility], 7th [place] [address] Radha Frausto RN welcome call 09/25/2023 Orders Only [facility] [address] [place] [address] Bldg, 7th [place] [address] Maria Elena Eaton PA Adenocarcinoma, NOS of rectum, NOS (Primary Dx) 09/25/2023 Lab Requisition [facility] Yakov Ramos MD Marginean, Esmeralda Celia 09/24/2023 8:40 PM CDT Ancillary Procedure [facility] [address] [place] [address] Addy Hadley MD Cancer 09/24/2023 8:35 PM CDT Ancillary Procedure [facility] [address] [place] [address] Addy Hadley MD Cancer 09/24/2023 8:30 PM CDT Ancillary Procedure [facility] [address] [place] [address] Addy Hadley MD Cancer 09/24/2023 8:25 PM CDT Ancillary Procedure [facility] [address] [place] [address] Addy Hadley MD Cancer 09/24/2023 8:20 PM CDT Ancillary Procedure [facility] [address] [place] [address] Addy Hadley MD Cancer 09/24/2023 8:15 PM CDT Ancillary Procedure [facility] [address] [place] [address] Addy Hadley MD Cancer 09/24/2023 8:10 PM CDT Ancillary Procedure [facility] [address] [place] [address] Addy Hadley MD Cancer 09/24/2023 8:05 PM CDT Ancillary Procedure [facility] [address] [place] [address] Addy Hadley MD Cancer 09/24/2023 8:00 PM CDT Ancillary Procedure [facility] [address] [place] [address] Addy [place] MD Cancer 09/21/2023 Telephone [facility] [address] [place], [place] [id number] Amy Lutz, web support engineer Call 09/11/2023 11:12 AM CDT - 09/20/2023 11:43 AM CDT Hospital Encounter MAIN [address] [place] [address] Mitchel Torrez MD Feuer, MD Olman Holguin Brian, MD Viets, Jayne, MD Walton, Natalie, MD Khan, MD Meghna Oliveros, MD Fany Mckeon, MD Leonie Price Cerena, MD Cancer associated pain (Primary Dx); Intractable abdominal pain; Dyspnea; Colon cancer; Metastatic carcinoma to liver; Nausea and vomiting Discharge Disposition: Home with Home-Health or Physical Therapy 09/11/2023 Travel after 03/25/2023 Medical History Medical History Date Comments Hypertension Hyperlipidemia Social History Tobacco Use Types Packs/Day Years Used Date Smoking Tobacco: Never Passive Smoke Exposure: Never Smokeless Tobacco: Never Tobacco Cessation:Counseling Given: No Comments:N/a Alcohol Use Standard Drinks/Week Comments Never 0 (1 standard drink = 0.6 oz pur e alcohol) n/a Comments No Sex and Gender Information Value Date Recorded Sex Assigned at Not on file Legal Sex Female 10:46 AM CDT Gender Identity Female 07/06/2023 4:11 PM CDT Sexual Orientation Straight 07/06/2023 4: 11 PM CDT Obstetrics History Last Filed Vital Signs Vital [...] Due Date Last Done Comments COVID-19 Vaccine (2023-2 5 season) 2023 Influenza Vaccine (#1) 2023 Pneumococcal Vaccine Aged Out No long er eligible based on patient's age to complete this [...] Routine 07/10/2023 4:07 PM CDT Cancer after 03/25/2023 Results * (ABNORMAL) .CBC (09/20/2023 4:41 AM CDT) Only the most recent of10 resultswithin the time period is included. White Blood Cell 10.4 4.1 - 10.5 K/uL 09/20/2023 4:53 AM CDT [facility] Red Blood Cell 3.72(L) 3.99 - 5.46 M/uL 09/20/2023 4:53 AM CDT [facility] Hemoglobin 9.7(L) 12.2 - 15.3 g/dL 09/20/2023 4:53 AM CDT [facility] Hematocrit 30.7(L) 36.4 - 46.8 % 09/20/2023 4:53 AM CDT [facility] Mean Cell Volume 83 82 - 99 fL 09/20/2023 4:53 AM CDT [facility] Mean Cell Hemoglobin 26.1(L) 26.6 - 33.2 pg 09/20/2023 4:53 AM CDT [facility] Mean Cell Hemoglobin Concentration 31.6 31.1 - 35.2 g/dL 09/20/2023 4:53 AM CDT [facility] RDW-SD 54.4(H) 37.5 - 49.7 fL 09/20/2023 4:53 AM CDT [facility] Red Cell Diameter Width 18.5(H) 11.6 - 15.5 % 09/20/2023 4:53 AM CDT [facility] Platelet 604(H) 160 - 397 K/uL 09/20/2023 4:53 AM CDT [facility] Mean Platelet Volume 8.9(L) 9.1 - 12.6 fL 09/20/2023 4:53 AM CDT [facility] INRBC 0.0 0.0 - 0.1 /100 WBC 09/20/2023 4:53 AM [facility] Comment: The INRBC (instrument NRBC) value reflects the enumeration of nucleated red blood cells contained in a 200uL sample of whole blood analyzed by the instrument. This value may differ from the NRBC value reported in a manual differential, which is based on a 100 cell differential. Neutrophil % 68.4 43.2 - 72.7 % 09/20/2023 4:53 AM CDT [facility] Lymphocyte % 15.9(L) 16.8 - 46.2 % 09/20/2023 4:53 AM T [facility] Monocyte % 8.1 5.1 - 12.5 % 09/20/2023 4:53 AM T [facility] Eosinophil % 6.4(H) 0.4 - 6.3 % 09/20/2023 4:53 AM T [facility] Basophil % 0.6 0.2 - 1.4 % 09/20/2023 4:53 AM T [facility] IGRE % 0.6 0.1 - 1.5 % 09/20/2023 4:53 AM [facility] Comment:The IGRE% includes M etamyelocytes, Myelocytes and Promyelocytes. Neutrophil Abs 7.13 1.95 - 7.25 K/uL 09/20/2023 4:53 AM [facility] Lymphocyte Abs 1.66 1.01 - 3.24 K/uL 09/20/2023 4:53 AM T [facility] Monocyte Abs 0.84 0.24 - 0.85 K/uL 09/20/2023 4:53 AM [facility] Eosinophil Abs 0.67(H) 0.02 - 0.50 K/uL 09/20/2023 4:53 AM [facility] Basophil Abs 0.06 0.02 - 0.09 K/uL 09/20/2023 4:53 AM [facility] IG Abs 0.06 0.01 - 0.12 K/uL 09/20/2023 4:53 AM [facility] Blood Peripheral blood specimen / Unknown Venipuncture / Unknown 09/20/2023 4:41 AM CDT 09/20/2023 4:49 AM CDT us Chilo David PA-C LAB BLOOD ORDERABLES Final Result [facility] Unless otherwise noted, all lab tests performed by: Division of Pathology and Laboratory Medicine [address] [place] [phone] * (ABNORMAL) Basic Metabolic Panel- Total Calcium (09/20/2023 4:41 AM CDT) Only the most recent of8 resultswithin the time period is included. eGFR 107 >=60 mL/min/1. 73 sq. m 09/20/2023 5:19 AM CDT [facility] Comment: The eGFRcr is calculated with the [...] - 10.2 mg/dL 09/20/2023 5:19 AM CDT [facility] Sodium Level 140 136 - 145 mmol/L 09/20/2023 5:19 AM CDT [facility] Potassium Level 4.1 3.4 - 4.5 mmol/L 09/20/2023 5:19 AM CDT [facility] Chloride 103 98 - 107 mmol/L 09/20/2023 5:19 AM CDT [facility] CO2 29 22 - 29 mmol/L 09/20/2023 5:19 AM CDT [facility] Anion Gap 8 4 - 14 mmol/L 09/20/2023 5:19 AM CDT [facility] Creatinine 0.50(L) 0.51 - 0.95 mg/dL 09/20/2023 5:19 AM CDT [facility] BUN 4(L) 6 - 23 mg/dL 09/20/2023 5:19 AM CDT [facility] Glucose Level 101(H) 70 - 99 mg/dL 09/20/2023 5:19 AM CDT [facility] Comment: Effective 09/15/15, the glucose reference intervals have been updated based on [employer] guidelines (Standards of Medical Care [...] 4:41 AM CDT 09/20/2023 4:49 AM CDT us Ban Bills SIGHT MOUNTER,AGACNP LAB BLOOD ORDERABLES Final Result [facility] Unless otherwise noted, all lab tests performed by: Division of Pathology and Laboratory Medicine [address] [place] [phone] * Phosphorus Level (09/20/2023 4:41 AM CDT) Only the most recent of9 resultswithin the time period is included. Phosphorus Level 2.9 2.5 - 4.5 mg/dL 09/20/2023 5:19 AM CDT [facility] Blood Peripheral blood specimen / Unknown Venipuncture / Unknown 09/20/2023 4:41 AM CDT 09/20/2023 4:49 AM CDT JULIO Cobb APRN LAB BLOOD ORDERABLES Final Result [facility] Unless otherwise noted, all lab tests performed by: Division of Pathology and Laboratory Medicine [address] [place] [phone] * Magnesium Level (09/20/2023 4:41 AM CDT) Only the most recent of9 resultswithin the time period is included. Magnesium Level 1.9 1.6 - 2.6 mg/dL 09/20/2023 5:19 AM CDT [facility] Blood Peripheral blood specimen / Unknown Venipuncture / Unknown 09/20/2023 4:41 AM CDT 09/20/2023 4:49 AM CDT us Ban Bills APRN,JULIO LAB BLOOD ORDERABLES Final Result Performing Organization Address [facility] Co de Phone Number [facility] Unless otherwise noted, all lab tests performed by: Division of Pathology and Laboratory Medicine [address] [place] [phone] * (ABNORMAL) Potassium Level (09/17/2023 11:06 AM CDT) Potassium Level 3.1(L) 3.4 - 4.5 mmol/L 09/17/2023 11:36 AM CDT [facility] Blood Peripheral blood specimen / Unknown Venipuncture / Unknown 09/17/2023 11:06 AM CDT 09/17/2023 11:13 AM CDT Narrative [facility] - 09/17/2023 11:36 AM CDT Reference range established based on adult population Deanna Villegas APRN LAB BLOOD ORDERABLES Final Result [facility] Unless otherwise noted, all lab tests performed by: Division of Pathology and Laboratory Medicine [address] [place] [phone] * (ABNORMAL) Hepatic Function Panel (09/16/2023 6:52 AM CDT) Bilirubin Total 0.8 0.0 - 1.2 mg/dL 09/16/2023 5:27 PM CDT [facility] Comment:Indocyanine Green (I CG) may cause falsely elevated bilirubin results. Total and direct bilirubin must not be measured from samples containing indocyanine green. False elevation of total bilirubin can be seen in patients with IgG concentrations above 28 g/L. Bilirubin Direct 0.4(H) 0.0 - 0.3 mg/dL 09/16/2023 5:27 PM CDT [facility] Comment:Indocyanine Green (I CG) may cause falsely elevated bilirubin results. Total and direct bilirubin must not be measured from samples containing indocyanine green. Bilirubin Indirect 0.4 0.0 - 0.9 mg/dL 09/16/2023 5:27 PM CDT [facility] Tot Protein 5.6(L) 6.4 - 8.3 gm/dL 09/16/2023 5:27 PM CDT [facility] Alkaline Phosphatase 269(H) 35 - 104 U/L 09/16/2023 5:27 PM CDT [facility] Albumin Level 2.5(L) 3.5 - 5.2 gm/dL 09/16/2023 5:27 PM CDT [facility] AST 22 <=32 U/L 09/16/2023 5:27 PM CDT [facility] ALT 20 <=33 U/L 09/16/2023 5:27 PM CDT [facility] Blood Peripheral blood specimen / Unknown Venipuncture / Unknown 09/16/2023 6:52 AM CDT 09/16/2023 7:36 AM CDT us He Soares MD LAB BLOOD ORDERABLES Final Resu lt [facility] Unless otherwise noted, all lab tests performed by: Division of Pathology and Laboratory Medicine [address] [place] [phone] * (ABNORMAL) TSH (09/16/2023 6:52 AM CDT) Thyroid Stimulating Hormone 8.43(H) 0.27 - 4.20 mcunit/mL 09/16/2023 6:20 PM CDT [facility] Blood Peripheral blood specimen / Unknown Venipuncture / Unknown 09/16/2023 6:52 AM CDT 09/16/2023 7:36 AM CDT He Soares MD LAB BLOOD ORDERABLES Final Resu lt [facility] Unless otherwise noted, all lab tests performed by: Division of Pathology and Laboratory Medicine [address] [place] [phone] * Free T4 (09/16/2023 6:52 AM CDT) T4 (Thyroxine) Free 1.33 0.93 - 1.70 ng/dL 09/16/2023 6:20 PM CDT [facility] Blood Peripheral blood specimen / Unknown Venipuncture / Unknown 09/16/2023 6:52 AM CDT 09/16/2023 7:36 AM CDT us He Soares MD LAB BLOOD ORDERABLES Final Resu lt [facility] Unless otherwise noted, all lab tests performed by: Division of Pathology and Laboratory Medicine [address] [place] [phone] * Cortisol, Total (09/16/2023 6:52 AM CDT) Cortisol 8.34 4.82 - 19.50 mcg/dL 09/16/2023 6:20 PM CDT [facility] Blood Peripheral blood specimen / Unknown Venipuncture / Unknown 09/16/2023 6:52 AM CDT 09/16/2023 7:36 AM CDT Narrative [facility] - 09/16/2023 6:20 PM CDT Cortisol reference [...] Afternoon (4-8 pm): 2.47 - 11.9 mcg/dL us He Soares MD LAB BLOOD ORDERABLES Final Resu lt [facility] Unless otherwise noted, all lab tests performed by: Division of Pathology and Laboratory Medicine [address] [place] [phone] * Transfuse RBC:Transfusion Date: 09/15/2023 (09/15/2023 6:06 PM CDT) Juan Andersonchris MORALESN BLOOD TRANSFUSION ORDERABLES Fin al Result * Confirm ABORh (09/15/2023 9:14 AM CDT) ABORh Confirm A POS 09/15/2023 9:11 AM CDT [facility] Blood Peripheral blood specimen / Unknown Venipuncture / Unknown 09/15/2023 9:14 AM CDT 09/15/2023 9:23 AM CDT RainKingsheron Anderson SIGHT MOUNTER BLOOD BANK TEST ORDERABLES Final Result [facility]fusion [facility] [address] [place] [address] [id number] [place] [address] * Type and screen (09/15/2023 9:13 AM CDT) ABORh A POS 09/15/2023 5:27 AM CDT [facility] ABSC Negative 09/15/2023 5:27 AM CDT [facility] Clot Expiration 09/18/2023 23:59 09/15/2023 5:27 AM CDT [facility] Historical Record Check No History 09/15/2023 5:27 AM CDT [facility] Blood Peripheral blood specimen / Unknown Venipuncture / Unknown 09/15/2023 9:13 AM CDT 09/15/2023 9:23 AM CDT Juan Andersonchris MUARER BLOOD BANK TEST ORDERABLES Final Result [facility]fusion [facility] [address] [facility] [id number] [place] [address] * Prepare RBC:G2259, 1 Units (09/15/2023 5:26 AM CDT) Product Code [id number] [facility] Product Code Text Red Blood Cells [facility] QTY Ordered 1 [facility] Dispense Status Transfused [facility] Unit Expiration [id number] [facility] Unit Number [id number] [facility] Unit Blood Type A+ [facility] Bag Volume 378 [facility] XM Interpretation Compatible U T [facility] Unit Blood Type Barcode 6200 [facility] PRBC Product Ready For Design Specialist B2 Blood Bank [facility] RBC Product Status 1 RBC approved [facility] Comment:Order Form 03 when r osmar for product issue. Blood Juan Anderson SIGHT MOUNTER BLOOD BANK PRODUCT ORDERABLES Fi nal Result [facility] [address] [facility] [address] [place] [address] * Peripheral Smr For Doc Review (09/15/2023 3:30 AM CDT) Blood Peripheral blood specimen / Unknown Venipuncture / Unknown 09/15/2023 3:30 AM CDT 09/15/2023 4:16 AM CDT us He Soares MD LAB BLOOD ORDERABLES Final Resu lt [facility] Unless otherwise noted, all lab tests performed by: Division of Pathology and Laboratory Medicine [address] [place] [phone] * (ABNORMAL) Differential (09/15/2023 3:30 AM CDT) Total Cells 113 09/15/2023 8:54 AM CDT [facility] Manual Neutrophil % 92.0(H) 43.2 - 72.7 % 09/15/2023 8:54 AM CDT [facility] Comment:The Neutrophil count includes Bands. Manual Lymphocyte % 2.0(L) 16.8 - 46.2 % 09/15/2023 8:54 AM CDT [facility] Manual Monocyte % 2.0(L) 5.1 - 12.5 % 09/15/2023 8:54 AM CDT [facility] Manual Eosinophil % 1.0 0.4 - 6.3 % 09/15/2023 8:54 AM CDT [facility] Manual Basophil % 2.0(H) 0.2 - 1.4 % 09/15/2023 8:54 AM CDT [facility] Metamyelocyte % 1.0(H) <=0.0 % 8:54 AM CDT [facility] Comment:The Metamyelocyte co unt includes Myelocytes. Manual Neutrophil Abs 12.70(H) 1.95 - 7.25 K/uL 09/15/2023 8:54 AM CDT [facility] Manual Lymphocyte Abs 0.28(L) 1.01 - 3.24 K/uL 09/15/2023 8:54 AM CDT [facility] Manual Monocyte Abs 0.28 0.24 - 0.85 K/uL 09/15/2023 8:54 AM CDT [facility] Manual Eosinophil Abs 0.14 0.02 - 0.50 K/uL 09/15/2023 8:54 AM CDT [facility] Manual Basophil Abs 0.28(H) 0.02 - 0.09 K/uL 09/15/2023 8:54 AM CDT [facility] RBC Morphology PRESENT 09/15/2023 8:54 AM CDT [facility] Anisocytosis Present(A) (none) 09/15/2023 8:54 AM CDT [facility] Poikilocytosis Present(A) (none) 09/15/2023 8:54 AM CDT [facility] Ovalocyte Present(A) (none) 09/15/2023 8:54 AM CDT [facility] Tear Drop Present(A) (none) 09/15/2023 8:54 AM CDT [facility] Chace Cells Present(A) (none) 09/15/2023 8:54 AM CDT [facility] Slide Comment SEE NOTE 09/15/2023 8:54 AM CDT [facility] Comment:Platelet morphology normal. Blood Peripheral blood specimen / Unknown Venipuncture / Unknown 09/15/2023 3:30 AM CDT 09/15/2023 4:16 AM CDT Chilo David PA-C LAB BLOOD ORDERABLES Final Result [facility] Unless otherwise noted, all lab tests performed by: Division of Pathology and Laboratory Medicine [address] [place] [phone] * (ABNORMAL) Retic Auto (09/15/2023 3:30 AM CDT) Reticulocyte Count Automated 1.00 0.92 - 2.71 % 09/16/2023 2:45 AM CDT [facility] RETHE 20.6(L) 29.9 - 38.4 pg 09/16/2023 2:45 AM CDT [facility] IRF 14.4 3.5 - 19.8 % 09/16/2023 2:45 AM CDT [facility] Retic Absolute 0.0264(L) 0.04 - 0.13 M/uL 09/16/2023 2:45 AM CDT [facility] Blood Peripheral blood specimen / Unknown Venipuncture / Unknown 09/15/2023 3:30 AM CDT 09/15/2023 4:16 AM CDT us He Soares MD LAB BLOOD ORDERABLES Final Resu lt Performing Organization Address [facility] de Phone Number [facility] Unless otherwise noted, all lab tests performed by: Division of Pathology and Laboratory Medicine [address] [place] [address] [phone] * (ABNORMAL) Transferrin with TIBC (09/15/2023 3:30 AM CDT) Transferrin 111(L) 200 - 360 mg/dL 09/16/2023 1:13 AM CDT [facility] Total Iron Binding Capacity 155(L) 250 - 450 mcg/dL 09/16/2023 1:13 AM CDT [facility] Blood Peripheral blood specimen / Unknown Venipuncture / Unknown 09/15/2023 3:30 AM CDT 09/15/2023 4:46 AM CDT us He Soares MD LAB BLOOD ORDERABLES Final Resu lt Performing Organization Address [facility] de Phone Number [facility] Unless otherwise noted, all lab tests performed by: Division of Pathology and Laboratory Medicine [address] [place] [address] [phone] * (ABNORMAL) Iron Level (09/15/2023 3:30 AM CDT) Iron Level <9(L) 37 - 145 mcg/dL 09/16/2023 1:13 AM CDT [facility] Is patient fasting? 09/16/2023 1:13 AM CDT [facility] Blood Peripheral blood specimen / Unknown Venipuncture / Unknown 09/15/2023 3:30 AM CDT 09/15/2023 4:46 AM CDT us He Soares MD LAB BLOOD ORDERABLES Final Resu lt [facility] Unless otherwise noted, all lab tests performed by: Division of Pathology and Laboratory Medicine [address] [place] [address] [phone] * (ABNORMAL) Ferritin Level (09/15/2023 3:30 AM CDT) Pathologist [facility] Ferritin Level 558(H) 13 - 150 ng/mL 09/16/2023 1:13 AM CDT [facility] Blood Peripheral blood specimen / Unknown Venipuncture / Unknown 09/15/2023 3:30 AM CDT 09/15/2023 4:46 AM CDT Narrative [facility] - 09/16/2023 1:13 AM CDT Reference range established for age 17 - 60 years us He Soares MD LAB BLOOD ORDERABLES Final Resu lt Performing Organization Address [facility] Co de Phone Number [facility] Unless otherwise noted, all lab tests performed by: Division of Pathology and Laboratory Medicine [address] [place] [phone] * MRSA Screening Culture (09/14/2023 4:19 PM CDT) [facility] MRSA Screening Culture No Methicillin-Resist ant Staphylococcus aureus isolated. 09/16/2023 1:36 PM CDT [facility] Swab (Nares, Right) Non-blood Collection / Unknown 09/14/2023 4:19 PM CDT 09/14/2023 4:25 PM CDT Narrative [facility] - 09/16/2023 1:36 PM CDT Testing is performed using PBP2a antigen detection and cefoxitin screen on isolated S. aureus colonies. This methodology may not detect uncommon mechanisms of methicillin resistance in S. aureus. us Amber Dumont SIGHT MOUNTER MICROBIOLOGY - GENERAL O RDERABLES Final Result [facility] Unless otherwise noted, all lab tests performed by: Division of Pathology and Laboratory Medicine [address] [place] [address] [phone] * Vancomycin Trough Vancomycin trough on 09/13 @ 1230. Nurse please coordinate with lab to draw troughapproximately 11 - 11.5 hours after previous vancomycin dose. Hold vancomycin if trough is greater than 20 and notify provider. Thanks! (09/14/2023 12:55 PM CDT) Vancomycin Trough 8.1 5.0 - 20.0 mcg/mL 09/14/2023 2:08 PM CDT [facility] Vancomycin Trough Dose Time 09/14/2023 2:08 PM CDT [facility] Vancomycin Trough Dose Date 09/14/2023 2:08 PM CDT [facility] Blood Peripheral blood specimen / Unknown Venipuncture / Unknown 09/14/2023 12:55 PM CDT 09/14/2023 1:05 PM CDT Narrative [facility] - 09/14/2023 2:08 PM CDT Toxic Trough Level: >20 mcg/ml Uncomplicated MRSA bacteremia: 10-15mcg/mL MRSA bacteremia or endocarditis and other severe invasive MRSA infections (PJI, HAP, QUARTZ CUTTER infections): 15-20mcg/mL Chilo David PA-C LAB BLOOD ORDERABLES Final Result [facility] Unless otherwise noted, all lab tests performed by: Division of Pathology and Laboratory Medicine [address] [place] [phone] * Echocardiogram 2D Complete (09/14/2023 10:28 AM [...] (avg): 9.1 E/e' (lat): 9.5E/e' (sept): 8.8 us Chilo David PA-C CV ECHO ORDERABLES Final Re sult ISCV * HIV 1/2 Antigen/Antibody, Fourth Gen W/RFL (09/14/2023 5:11 AM CDT) HIV Ag/Ab, 4TH Gen NON-REACT LORENZA NON-REACT LORENZA 09/18/2023 6:53 PM CDT [employer] ([employer]) Comment: HIV-1 antigen and HIV-1/HIV-2 antibodies were [...] purpose. For additional information please refer to http://education.RFIDeas.[employer]/faq/ELL460 (This link is being provided for informational/ educational purposes only.) The performance of this assay has not been clinically validated in patients less than 2 years old. Blood Peripheral blood specimen / Unknown Venipuncture / Unknown 09/14/2023 5:11 AM CDT 09/14/2023 5:21 AM CDT Narrative [employer] ([employer]) - 09/18/2023 6:53 PM CDT Performing Organization Information: [facility] [address] [place] [id number] Sarah Arroyo us Caleb Tobar MD LAB BLOOD ORDERABLES Final Res ult MARI POOLE) * Hepatitis C Virus Antibody (09/14/2023 5:11 AM CDT) HCVAb. Non Reactive Non Reactive 09/14/2023 9:50 AM CDT [facility] Blood Peripheral blood specimen / Unknown Venipuncture / Unknown 09/14/2023 5:11 AM CDT 09/14/2023 5:21 AM CDT Narrative [facility] - 09/14/2023 9:50 AM CDT Antibody detection in the immunocompromised and immunosuppressed population may be delayed or absent entirely. Therefore serial testing, correlation with other clinical findings, and supplemental testing (if available) should be taken into consideration when interpreting the results. us Caleb Tobar MD LAB BLOOD ORDERABLES Final Res ult Performing Organization Address [facility] Co de Phone Number [facility] Unless otherwise noted, all lab tests performed by: Division of Pathology and Laboratory Medicine [address] [place] [phone] * Hepatitis B Total Ig Core Ab (SCREENING) (anti-HBc total Ig; HBcAb total Ig) (09/14/2023 5:11 AM CDT) HBcAb. Non Reactive Non Reactive 09/14/2023 9:49 AM CDT [facility] Blood Peripheral blood specimen / Unknown Venipuncture / Unknown 09/14/2023 5:11 AM CDT 09/14/2023 5:21 AM CDT us Caleb Tobar MD LAB BLOOD ORDERABLES Final Res ult [facility] Unless otherwise noted, all lab tests performed by: Division of Pathology and Laboratory Medicine [address] [place] [phone] * Hepatitis B Surface Antibody (09/14/2023 5:11 AM CDT) [facility] HBsAb Non Reactive 09/14/2023 9:49 AM CDT [facility] Blood Peripheral blood specimen / Unknown Venipuncture / Unknown 09/14/2023 5:11 AM CDT 09/14/2023 5:21 AM CDT Narrative [facility] - 09/14/2023 9:49 AM CDT Vaccinated individual: Reactive Unvaccinated individual: Non-Reactive Caleb Tobar MD LAB BLOOD ORDERABLES Final Res ult Performing Organization Address City/[facility]/ZIP Co de Phone Number [facility] Unless otherwise noted, all lab tests performed by: Division of Pathology and Laboratory Medicine [address] [place] [phone] * Hepatitis B Surface Ag (09/14/2023 5:11 AM CDT) [facility] HBsAg. Non Reactive Non Reactive 09/14/2023 9:49 AM CDT [facility] Blood Peripheral blood specimen / Unknown Venipuncture / Unknown 09/14/2023 5:11 AM CDT 09/14/2023 5:21 AM CDT Caleb Tobar MD LAB BLOOD ORDERABLES Final Res ult [facility] Unless otherwise noted, all lab tests performed by: Division of Pathology and Laboratory Medicine [address] [place] [phone] * (ABNORMAL) Urinalysis Microscopic Exam (09/13/2023 6:05 PM CDT) [facility] Urine Mucous Trace Not Seen, Trace /HPF 09/13/2023 7:25 PM CDT [facility] Urine Bacteria Not Seen Not Seen /HPF 09/13/2023 7:25 PM CDT [facility] Urine Squamous Epithelial Cells OCC Not Seen, OCC, Rare /HPF 09/13/2023 7:25 PM CDT [facility] Urine Amorphous Crystal OCC(A) Not Seen /HPF 09/13/2023 7:25 PM CDT [facility] Urine WBC 2 <=2 /HPF 09/13/2023 7:25 PM CDT [facility] Urine RBC <1 <=2 /HPF 09/13/2023 7:25 PM CDT [facility] Urine (Urine Clean Catch) Non-blood Collection / Unknown 09/13/2023 6:05 PM CDT 09/13/2023 6:15 PM CDT us Naida Kelley APRN LAB BLOOD ORDERABLES Dayanara brown Result [facility] Unless otherwise noted, all lab tests performed by: Division of Pathology and Laboratory Medicine [address] [place] [phone] * (ABNORMAL) Urinalysis w/Microscopic if Indicated (09/13/2023 6:05 PM CDT) Only the most recent of2 resultswithin the time period is included. Urine Appearance Hazy(A) Clear 09/13/19 6:21 PM CDT [facility] Urine Color Yellow Colorless, Straw, Yellow, Dark Yellow, Straw-Yellow 09/13/2023 6:21 PM CDT [facility] Urine Specific Hecker 1.014 1.003 - 1.035 09/13/2023 6:21 PM CDT [facility] Urine pH 6.0 5.0 - 8.0 09/13/2023 6:21 PM CDT [facility] Urine Glucose Negative Negative mg/dL 09/13/2023 6:21 PM CDT [facility] Urine Ketones Negative Negative mg/dL 09/13/2023 6:21 PM CDT [facility] Urine Blood Negative Negative 09/13/2023 6:21 PM CDT [facility] Urine Protein 30(A) Negative mg/dL 09/13/2023 6:21 PM CDT [facility] Urine Bilirubin Negative Negative 6:21 PM CDT [facility] Urine Urobilinogen Negative Negative 09/13/2023 6:21 PM CDT [facility] Urine Nitrite Negative Negative 09/13/2023 6:21 PM CDT [facility] Urine Leukocyte Esterase Negative Negative 09/13/2023 6:21 PM CDT [facility] Urine (Urine Clean Catch) Non-blood Collection / Unknown 09/13/2023 6:05 PM CDT 09/13/2023 6:15 PM CDT Narrative [facility] - 09/13/2023 6:21 PM CDT Some reporting parameters within the Urinalysis test have changed due to the implementation of new instrumentation in the [facility], allowing greater sensitivity of measurement. Urinalysis results reported by the [facility] using existing instrumentation, as well as Urinalysis testing performed manually or by back-up methodology at the [facility], will remain relatively unchanged. New reporting parameters and units will now be reported for all porteres. us Naida Kelley APRN URINE ORDERABLES Final Re sult [facility] Unless otherwise noted, all lab tests performed by: Division of Pathology and Laboratory Medicine [address] [place] [phone] * US Liver (09/13/2023 5:14 PM CDT) [...] present, and agree with the final report. us Chilo David PA-C IMG US ORDERABLES Final Res ult * (ABNORMAL) Lactic Acid, Venous (09/13/2023 10:35 AM CDT) Only the most recent of2 resultswithin the time period is included. Venous Lactate 1.8(H) 0.5 - 1.6 mmol/L 09/13/2023 10:43 AM CDT [facility] Oxygen FLOW Rate/ FiO2 09/13/2023 10:43 AM CDT [facility] O2 Therapy 09/13/2023 10:43 AM CDT [facility] Blood Peripheral blood specimen / Unknown Venipuncture / Unknown 09/13/2023 10:35 AM CDT 09/13/2023 10:41 AM CDT Chilo David PA-C LAB BLOOD ORDERABLES Final Result [facility] Unless otherwise noted, all lab tests performed by: Division of Pathology and Laboratory Medicine [address] [place] [phone] * Blood Culture (09/13/2023 10:35 AM CDT) Only the most recent of2 resultswithin the time period is included. Blood Culture No Growth. 09/18/2023 12:01 PM CDT [facility] Blood Peripheral blood specimen / Unknown Venipuncture / Unknown 09/13/2023 10:35 AM CDT 09/13/2023 10:41 AM CDT Naida Kelley APRN MICROBIOLOGY - GENERAL OR DERABLES Final Result [facility] Unless otherwise noted, all lab tests performed by: Division of Pathology and Laboratory Medicine [address] [place] [phone] * (ABNORMAL) Procalcitonin (09/13/2023 3:19 AM CDT) Only the most recent of2 resultswithin the time period is included. Procalcitonin 3.43(H) <=0.08 ng/mL 09/13/2023 4:23 AM CDT [facility] Blood Peripheral blood specimen / Unknown Venipuncture / Unknown 09/13/2023 3:19 AM CDT 09/13/2023 3:44 AM CDT Narrative [facility] - 09/13/2023 4:23 AM CDT Procalcitonin > [...] with extended dilution as it exceeds the laborer cheesemaking's recommended limit. Caution should be exercised when interpreting such values and done in conjunction with clinical context. Ban Bills SIGHT MOUNTER,AGACNP LAB BLOOD ORDERABLES Final Result [facility] Unless otherwise noted, all lab tests performed by: Division of Pathology and Laboratory Medicine [address] [place] [phone] * Urine Culture (09/13/2023 1:02 AM CDT) Urine Culture Normal site santi present. Generally of low significance. Correlate with clinical data and culture history. 09/15/2023 8:06 AM CDT [facility] Urine (Urine Clean Catch) Non-blood Collection / Unknown 09/13/2023 1:02 AM CDT 09/13/2023 1:08 AM CDT Naida Nelson Kelley SIGHT MOUNTER MICROBIOLOGY - GENERAL OR DERABLES Final Result [facility] Unless otherwise noted, all lab tests performed by: Division of Pathology and Laboratory Medicine [address] [place] [phone] * Gastrointestinal Multiplex PCR Panel (09/12/2023 4:59 PM CDT) Campylobacter Not Detected Not Detected 09/12/2023 7:29 PM CDT [facility] Plesiomonas shigelloides Not Detected Not Detected 09/12/2023 7:29 PM CDT [facility] Salmonella Not Detected Not Detected 09/12/2023 7:29 PM CDT [facility] Vibrio Not Detected Not Detected 09/12/2023 7:29 PM CDT [facility] Vibrio cholerae Not Detected Not Detected 09/12/2023 7:29 PM CDT [facility] Yersinia enterocolitica Not Detected Not Detected 09/12/2023 7:29 PM CDT [facility] Enteroaggregative E. coli (EAEC) Not Detected Not Detected 09/12/2023 7:29 PM CDT [facility] Enteropathogenic E. coli (EPEC) Not Detected Not Detected 09/12/2023 7:29 PM CDT [facility] Enterotoxigenic E. coli (ETEC) LT/ST Not Detected Not Detected 09/12/2023 7:29 PM CDT [facility] Shiga-like toxin-producing E. coli (STEC) Stx1/Stx2 Not Detected Not Detected 09/12/2023 7:29 PM CDT [facility] E. coli O157 N/A Not Detected 09/12/2023 7:29 PM CDT [facility] Shigella/Enteroinvas lorenza E. coli (EIEC) Not Detected Not Detected 09/12/2023 7:29 PM CDT [facility] Cryptosporidium Not Detected Not Detected 09/12/2023 7:29 PM CDT [facility] Cyclospora cayetanensis Not Detected Not Detected 09/12/2023 7:29 PM CDT [facility] Entamoeba histolytica Not Detected Not Detected 09/12/2023 7:29 PM CDT [facility] Giardia lamblia Not Detected Not Detected 09/12/2023 7:29 PM CDT [facility] Adenovirus F40/41 Not Detected Not Detected 09/12/2023 7:29 PM CDT [facility] Astrovirus Not Detected Not Detected 09/12/2023 7:29 PM CDT [facility] Norovirus GI/GII Not Detected Not Detected 09/12/2023 7:29 PM CDT [facility] Rotavirus A Not Detected Not Detected 09/12/2023 7:29 PM CDT [facility] Sapovirus (I, II, IV, V) Not Detected Not Detected 09/12/2023 7:29 PM CDT [facility] C. difficile Refer to separate C. difficile DNA Detection assay for results. 09/12/2023 7:29 PM CDT [facility] Stool Rectum structure / Unknown Non-blood Collection / Unknown 09/12/2023 4:59 PM CDT 09/12/2023 5:17 PM CDT Narrative [facility] - 09/12/2023 7:29 PM CDT The assay is a qualitative multiplex PCR assay to aid in the diagnosis of gastrointestinal infection through simultaneous qualitative detection and identification of multiple GI pathogens in diarrheal specimens collected in [employer] transport media obtained from individuals suspected of gastrointestinal infections. Testing is performed using the [employer] Gastrointestinal (GI) Panel on the [employer] System. The following organisms are identified using the [facility] GI Panel: Campylobacter spp., Plesiomonas shigelloides, Salmonella [...] verified by the microbiology laboratory at the [facility]. Results must be interpreted within the context of all relevant clinical and laboratory findings. Assay should not be used for monitoring response to therapy. Naida Kelley APRN MICROBIOLOGY - GENERAL OR DERABLES Final Result [facility] Unless otherwise noted, all lab tests performed by: Division of Pathology and Laboratory Medicine [address] [place] [phone] * C. difficile DNA Detection (09/12/2023 4:59 PM CDT) C. difficile - DNA Negative Negative 09/13/2023 10:33 AM CDT [facility] C. difficile - EIA Test Not Performed Negative 09/13/2023 10:33 AM CDT [facility] C. difficile - Interpretation C. difficile DNA detection was negative making C. difficile infection highly unlikely in this patient. EIA not performed. 09/13/2023 10:33 AM CDT [facility] Stool Rectum structure / Unknown Non-blood Collection / Unknown 09/12/2023 4:59 PM CDT 09/12/2023 5:17 PM CDT Narrative [facility] - 09/13/2023 10:33 AM CDT Qualitative detection of C. difficile DNA performed using helicase-dependent amplification of a conserved region of a pathogenicity locus (PaLoc) in toxigenic C. difficile strains. It is an FDA-approved assay performed on the [employer] Instrument from [employer] and is intended for use as an [...] rapid immunoassay using the FDA-approved ImmunoCard by [employer]. Patients positive for BOTH C. difficile DNA [...] verified by the microbiology laboratory at the [facility]. Results must be interpreted within the context of all relevant clinical and laboratory findings. Naida Kelley APRN MICROBIOLOGY - GENERAL OR DERABLES Final Result [facility] Unless otherwise noted, all lab tests performed by: Division of Pathology and Laboratory Medicine [address] [place] [phone] * (ABNORMAL) Urinalysis with Microscopic (09/12/2023 4:31 PM CDT) Urine Appearance Hazy(A) Clear 09/12/19 5:09 PM CDT [facility] Comment:This result was prev iously suppressed from the chart. Urine Color Yellow Colorless, Straw, Yellow, Dark Yellow, Straw-Yellow 09/12/2023 5:09 PM CDT [facility] Comment:This result was prev iously suppressed from the chart. Urine Specific Hecker 1.023 1.003 - 1.035 09/12/2023 5:09 PM CDT [facility] Comment:This result was prev iously suppressed from the chart. Urine pH 6.0 5.0 - 8.0 09/12/2023 5:09 PM CDT [facility] Comment:This result was prev iously suppressed from the chart. Urine Glucose Negative Negative mg/dL 09/12/2023 5:09 PM CDT [facility] Comment:This result was prev iously suppressed from the chart. Urine Ketones Negative Negative mg/dL 09/12/2023 5:09 PM CDT [facility] Comment:This result was prev iously suppressed from the chart. Urine Blood Negative Negative 09/12/2023 5:09 PM CDT [facility] Comment:This result was prev iously suppressed from the chart. Urine Protein 30(A) Negative mg/dL 09/12/2023 5:09 PM CDT [facility] Comment:This result was prev iously suppressed from the chart. Urine Bilirubin Negative Negative 5:09 PM CDT [facility] Urine Urobilinogen Negative Negative 09/12/2023 5:09 PM CDT [facility] Urine Nitrite Negative Negative 09/12/2023 5:09 PM CDT [facility] Comment:This result was prev iously suppressed from the chart. Urine Leukocyte Esterase Negative Negative 09/12/2023 5:09 PM CDT [facility] Comment:This result was prev iously suppressed from the chart. Urine WBC 1 <=2 /HPF 09/12/2023 5:09 PM CDT [facility] Urine RBC 09/12/2023 5:09 PM CDT [facility] Comment:None Seen Urine Mucous Trace Not Seen, Trace /HPF 09/12/2023 5:09 PM CDT [facility] Comment:This result was prev iously suppressed from the chart. Urine Bacteria OCC(A) Not Seen /HPF 09/12/2023 5:09 PM CDT [facility] Comment:This result was prev iously suppressed from the chart. Urine Squamous Epithelial Cells OCC Not Seen, OCC, Rare /HPF 09/12/2023 5:09 PM CDT [facility] Comment:This result was prev iously suppressed from the chart. Urine Hyaline Casts 3(H) <=2 /LPF 09/12/2023 5:09 PM CDT [facility] Urine Amorphous Crystal OCC(A) Not Seen /HPF 09/12/2023 5:09 PM CDT [facility] Comment:This result was prev iously suppressed from the chart. Urine Voided urine specimen / Unknown Non-blood Collection / Unknown 09/12/2023 4:31 PM CDT 09/12/2023 4:37 PM CDT Narrative [facility] - 09/12/2023 5:09 PM CDT Some reporting parameters within the Urinalysis test have changed due to the implementation of new instrumentation in the [facility], allowing greater sensitivity of measurement. Urinalysis results reported by the [facility] using existing instrumentation, as well as Urinalysis testing performed manually or by back-up methodology at the [facility], will remain relatively unchanged. New reporting parameters and units will now be reported for all porteres. us Naida Kelley APRN URINE ORDERABLES Final Re sult [facility] Unless otherwise noted, all lab tests performed by: Division of Pathology and Laboratory Medicine [address] [place] [phone] * XR Chest 1 View (09/12/2023 1:48 [...] unexpected and potentially actionable. Naida Kelley APRN [facility] OR DERABLES Final Result * Respiratory Multiplex PCR Panel, Nasopharyngeal Swab (09/12/2023 12:55 PM CDT) Adenovirus Not Detected Not Detected 09/12/2023 1:56 PM CDT [facility] Coronavirus 229E Not Detected Not Detected 09/12/2023 1:56 PM CDT [facility] Coronavirus HKU1 Not Detected Not Detected 09/12/2023 1:56 PM CDT [facility] Coronavirus NL63 Not Detected Not Detected 09/12/2023 1:56 PM CDT [facility] Coronavirus OC43 Not Detected Not Detected 09/12/2023 1:56 PM CDT [facility] COVID-19 (SARS-CoV-2) Not Detected Not Detected 09/12/2023 1:56 PM CDT [facility] Human Metapneumovirus Not Detected Not Detected 09/12/2023 1:56 PM CDT [facility] Human Rhinovirus/Enterov irus Not Detected Not Detected 09/12/2023 1:56 PM CDT [facility] Influenza A Not Detected Not Detected 09/12/2023 1:56 PM CDT [facility] Influenza A H1 Not Detected Not Detected 09/12/2023 1:56 PM CDT [facility] Influenza A H1 2009 Not Detected Not Detected 09/12/2023 1:56 PM CDT [facility] Influenza A H3 Not Detected Not Detected 09/12/2023 1:56 PM CDT [facility] Influenza B Not Detected Not Detected 09/12/2023 1:56 PM CDT [facility] Parainfluenza Virus 1 Not Detected Not Detected 09/12/2023 1:56 PM CDT [facility] Parainfluenza Virus 2 Not Detected Not Detected 09/12/2023 1:56 PM CDT [facility] Parainfluenza Virus 3 Not Detected Not Detected 09/12/2023 1:56 PM CDT [facility] Parainfluenza Virus 4 Not Detected Not Detected 09/12/2023 1:56 PM CDT [facility] Respiratory Syncytial Virus Not Detected Not Detected 09/12/2023 1:56 PM CDT [facility] Bordetella parapertussis Not Detected Not Detected 09/12/2023 1:56 PM CDT [facility] Bordetella pertussis Not Detected Not Detected 09/12/2023 1:56 PM CDT [facility] Chlamydophila pneumoniae Not Detected Not Detected 09/12/2023 1:56 PM CDT [facility] Mycoplasma pneumoniae Not Detected Not Detected 09/12/2023 1:56 PM CDT [facility] Swab Nasopharyngeal structure / Unknown Non-blood Collection / Unknown 09/12/2023 12:55 PM CDT 09/12/2023 1:01 PM CDT [facility] - 09/12/2023 1:56 PM CDT The assay is a qualitative multiplex PCR assay to aid in the diagnosis of respiratory pathogens through simultaneous qualitative detection and identification of multiple pathogens directly from nasopharyngeal swabs (HYDROLOGIC ENGINEER) from individuals with respiratory symptoms. Testing is performed using the [employer] Respiratory Panel 2.1 (RP2.1) on the [employer] System. The following organisms are identified using the [facility] RP 2.1 Panel: Adenovirus, Human Coronavirus (229E, [...] verified by the microbiology laboratory at the [facility] (CLIA Accreditation # [id number] and CAP Accreditation # [id number]). Results must be interpreted within the context of all relevant clinical and laboratory findings. Assay should not be used for monitoring response to therapy. Naida Kelley APRN MICROBIOLOGY - GENERAL OR DERABLES Final Result [facility] Unless otherwise noted, all lab tests performed by: Division of Pathology and Laboratory Medicine [address] [place] [phone] * (ABNORMAL) Comprehensive Metabolic Panel (09/12/2023 3:52 AM CDT) Only the most recent of2 resultswithin the time period is included. [facility] Bilirubin Total 0.3 0.0 - 1.2 mg/dL 09/12/2023 4:51 AM CDT [facility] Comment:Indocyanine Green (I CG) may cause falsely elevated bilirubin results. Total and direct bilirubin must not be measured from samples containing indocyanine green. False elevation of total bilirubin can be seen in patients with IgG concentrations above 28 g/L. eGFR 104 >=60 mL/min/1. 73 sq. m 09/12/2023 4:51 AM CDT [facility] Comment: The eGFRcr is calculated with the [...] 6.4 - 8.3 gm/dL 09/12/2023 4:51 AM CDT [facility] Calcium Level Total 9.2 8.2 - 10.2 mg/dL 09/12/2023 4:51 AM CDT [facility] Alkaline Phosphatase 476(H) 35 - 104 U/L 09/12/2023 4:51 AM CDT [facility] Albumin Level 2.9(L) 3.5 - 5.2 gm/dL 09/12/2023 4:51 AM CDT [facility] AST 60(H) <=32 U/L 09/12/2023 4:51 AM CDT [facility] ALT 34(H) <=33 U/L 09/12/2023 4:51 AM CDT [facility] Sodium Level 136 136 - 145 mmol/L 09/12/2023 4:51 AM CDT [facility] Potassium Level 3.8 3.4 - 4.5 mmol/L 09/12/2023 4:51 AM CDT [facility] Chloride 101 98 - 107 mmol/L 09/12/2023 4:51 AM CDT [facility] CO2 26 22 - 29 mmol/L 09/12/2023 4:51 AM CDT [facility] Anion Gap 9 4 - 14 mmol/L 09/12/2023 4:51 AM CDT [facility] Creatinine 0.56 0.51 - 0.95 mg/dL 09/12/2023 4:51 AM CDT [facility] BUN 7 6 - 23 mg/dL 09/12/2023 4:51 AM CDT [facility] Glucose Level 108(H) 70 - 99 mg/dL 09/12/2023 4:51 AM CDT [facility] Comment: Effective 09/15/15, the glucose reference intervals have been updated based on [employer] guidelines (Standards of Medical Care [...] 3:52 AM CDT 09/12/2023 4:16 AM CDT us Marcell Jordan [employer] LAB BLOOD ORDERABLES Final Res ult [facility] Unless otherwise noted, all lab tests performed by: Division of Pathology and Laboratory Medicine [address] [place] [id number] * CT Chest Pulmonary Embolism with Contrast [...] actionable. Mitchel Torrez MD IMG CT ORDERABLES Final Result * CT Abdomen Pelvis with IV Contrast [...] actionable. Mitchel Torrez MD [facility] ORDERABLES Final Result * X-ray Abdomen AP (09/11/2023 12:09 PM [...] stool in the colon. Marcell Thurman MD [facility] ORDERABL ES Final Result * Fractionated Bilirubin (09/11/2023 11:31 AM CDT) Bilirubin Direct 0.2 0.0 - 0.3 mg/dL 09/11/2023 12:29 PM CDT [facility] Comment:Indocyanine Green (I CG) may cause falsely elevated bilirubin results. Total and direct bilirubin must not be measured from samples containing indocyanine green. Bilirubin Indirect 0.5 0.0 - 0.9 mg/dL 09/11/2023 12:29 PM CDT [facility] Bilirubin Total 0.7 0.0 - 1.2 mg/dL 09/11/2023 12:29 PM CDT [facility] Comment: Indocyanine Green (ICG) may cause falsely [...] CDT Marcell Thurman MD LAB BLOOD ORDERABLES Final Resu lt Performing Organization Address City/[facility] Co de Phone Number [facility] Unless otherwise noted, all lab tests performed by: Division of Pathology and Laboratory Medicine [address] [place] [phone] * (ABNORMAL) Lipase (09/11/2023 11:31 AM CDT) Lipase Level 8(L) 13 - 60 U/L 09/11/2023 12:29 PM CDT [facility] Blood Peripheral blood specimen / Unknown Venipuncture / Unknown 09/11/2023 11:31 AM CDT 09/11/2023 11:41 AM CDT Narrative [facility] - 09/11/2023 12:29 PM CDT Reference range established based on adult population Marcell Thurman MD LAB BLOOD ORDERABLES Final Resu lt [facility] Unless otherwise noted, all lab tests performed by: Division of Pathology and Laboratory Medicine [address] [place] [phone] * (ABNORMAL) LDH (09/11/2023 11:31 AM CDT) LDH 707(H) 135 - 214 U/L 09/11/2023 12:22 PM CDT [facility] Blood Peripheral blood specimen / Unknown Venipuncture / Unknown 09/11/2023 11:31 AM CDT 09/11/2023 11:41 AM CDT Narrative [facility] - 09/11/2023 12:22 PM CDT Results greater than 1651 U/L may not be reliable due to matrix effect with extended dilution as it exceeds the laborer cheesemaking's recommended limit. Caution should be exercised when interpreting such values and done in conjunction with clinical context. Marcell Thurman MD LAB BLOOD ORDERABLES Final Resu lt Performing Organization Address City/[facility]/ZIP Co de Phone Number [facility] Unless otherwise noted, all lab tests performed by: Division of Pathology and Laboratory Medicine [address] [place] [phone] * Amylase (09/11/2023 11:31 AM CDT) Amylase Level 42 28 - 100 U/L 09/11/2023 12:29 PM CDT [facility] Blood Peripheral blood specimen / Unknown Venipuncture / Unknown 09/11/2023 11:31 AM CDT 09/11/2023 11:41 AM CDT Marcell Thurman MD LAB BLOOD ORDERABLES Final Resu lt [facility] Unless otherwise noted, all lab tests performed by: Division of Pathology and Laboratory Medicine [address] [place] [phone] * OSI CT Abdomen and Pelvis (09/08/2023 4:05 PM CDT) Only the most recent of4 resultswithin the time period is included. Narrative Systemgenerated, Documentation - 09/24/2023 4:05 PM CDT Study acquired at another institution. For comparison only. No [facility] interpretation requested or available. Addy Hadley MD IMG OUTSIDE IMAGE ORDERABLES Fin al Result * OSI MRI Pelvis (07/24/2023 4:06 PM CDT) Only the most recent of3 resultswithin the time period is included. Narrative Systemgenerated, Documentation - 09/24/2023 4:06 PM CDT Study acquired at another institution. For comparison only. No [facility] originated interpretation requested or available. Addy Hadley MD IMG OUTSIDE IMAGE ORDERABLES Fin al Result * OSI CT CHEST (07/12/2023 4:07 PM CDT) Narrative Systemgenerated, Documentation - 09/24/2023 4:07 PM CDT Study acquired at another institution. For comparison only. No [facility] originated interpretation requested or available. Addy Hadley MD IMG OUTSIDE IMAGE ORDERABLES Fin al Result * Pathology Outside Interpretation (07/11/2023) Materials Received Accession#, Stained, Block, Unstained Collected Received A. [id number], 12 SS, 0 BLOCKS, 0 USS 07/11/2023 09/25/2023 09/26/2023 10:55 AM CDT [facility] Diagnosis Outside ([id number], 12 SS, 0 BLOCKS, 0 USS, collected on 07/11/2023): A. Liver, biopsy: METASTATIC ADENOCARCINOMA, CONSISTENT WITH COLORECTAL ORIGIN. B. Rectum, mass, biopsy: INVASIVE MODERATELY DIFFERENTIATED ADENOCARCINOMA. (SEE COMMENT) DT/FGT 09/26/2023 10:55 AM CDT [facility] Comment Submitted immunohistochemical stains performed on block B1 show the tumor cells retain nuclear expression of mismatch repair protein (MLH1, MSH2, MSH6, and PMS2). 09/26/2023 10:55 AM CDT [facility] Biomarker Block(s) Tumor block: B1 Normal block: A1 Metastatic Tumor Block: A1 09/26/2023 10:55 AM CDT [facility] Disclaimer "Some tests reported here may have been developed and performance characteristics determined by [facility] Pathology and Laboratory Medicine. These tests have not been specifically cleared or approved by the U.S. Food and Drug Administration. If applicable, controls were reviewed and showed appropriate reactivity." 09/26/2023 10:55 AM CDT [facility] Tissue 07/11/2023 09/25/2023 8:4 6 AM CDT us Dee Dee Costello Tessa LAB PATHOLOGY ORDERABL ES Final Result [facility] [place] [address], [place] * OSI Chest (07/10/2023 4:07 PM CDT) Narrative Systemgenerated, Documentation - 09/24/2023 4:07 PM CDT Study acquired at another institution. For comparison only. No [facility] originated interpretation requested or available. Addy Hadley MD IMG OUTSIDE IMAGE ORDERABLES Fin al Result after 03/25/2023 Insurance GENERIC GENERIC Advance Directives * Full Code (Latest Code Status on File) Date Activated Date Inactivated Comments 09/11/2023 2:50 PM 09/20/2023 1:43 PM Care Teams Coal Hauler Relationship Specialty Start Date End Date Radha Frausto, RN [address] [place], [place] [email or web address] Intake Nurse Navigator Nursing 09/25/23
--- NOTE | 2024-03-24 14:38 | RAD REPORT ---
EXAMINATION: Pelvis CLINICAL INDICATION: Female, 63 years old. R chest injury/hip injury COMPARISON: No prior exam. FINDINGS: No acute fracture. No malalignment/dislocation. Degenerative changes are present at the pubic symphysis. Other: n/a IMPRESSION: No acute osseous abnormality.
--- NOTE | 2024-03-24 14:39 | RAD REPORT ---
EXAMINATION: Ribs Right CLINICAL INDICATION: Female, 63 years old. R chest injury/hip injury COMPARISON: No prior exam. VIEWS: Four views FINDINGS: No displaced right-sided rib fractures identified. No pneumothorax. Right IJ approach Port-A-Cath with tip overlying the proximal SVC. Right lung is clear. Other: n/a IMPRESSION: No displaced rib fracture identified. No pneumothorax.
--- NOTE | 2024-03-24 14:43 | RAD REPORT ---
EXAM: Chest Single View HISTORY: R chest injury/hip injury COMPARISON: 10/09/2023 FINDINGS: LUNGS/PLEURA: The lungs are clear. No pleural effusions or pneumothorax. No pulmonary edema. MEDIASTINUM: The mediastinal silhouette is within normal limits. CARDIAC: The cardiac silhouette is within normal limits. UPPER ABDOMEN: No significant abnormality. BONES: No acute abnormality. LINES/TUBES/OTHER: Right IJ approach Port-A-Cath with tip overlying the proximal SVC. IMPRESSION: No evidence of acute cardiopulmonary disease.
--- NOTE | 2024-03-24 15:06 | ER ---
Nurse's Notes [facility] Name: Helen Richardson Age: 63 yrs Sex: Female : 1960 Arrival Date: 03/24/2024 Time: 13:44 Bed DX1 Private MD: Diagnosis: Rib Contusion;Pain in right hip Presentation: 03/24 13:57 Chief complaint: Chief complaint: Right sided pain after mechanical fall from standing hb 4 days ago. Coronavirus screen: At this time, the client does not indicate any symptoms associated with coronavirus-19. Ebola Screen: No symptoms or risks identified at this time. Initial Sepsis Screen: Does the patient meet any 2 criteria? No. Patient's initial sepsis screen is negative. Does the patient have a suspected source of infection? No. Patient's initial sepsis screen is negative. Risk Assessment: Do you want to hurt yourself or someone else? Patient reports no desire to harm self or others. Onset of symptoms was March 20, 2023. 13:57 Method Of Arrival: Wheelchair hb 13:57 Acuity: YOGESH 4 hb Historical: - Allergies: 14:00 Iodinated Contrast Media; hb 14:00 Morphine; hb - PMHx: 14:00 High Cholesterol; Hypertension; hb - PSHx: 14:00 colon surgery ileostomy; hb - Immunization history:: Adult Immunizations up to date. - Infectious Disease History:: Denies. - Social history:: Smoking status: Patient denies any tobacco usage or history of. Screenin:27 [facility] ED Fall Risk Assessment (Adult) History of falling in the last 3 months, jl7 including since admission Yes- single mechanical fall (1 pt) Confusion or Disorientation No (0 pts) Intoxicated or Sedated No (0 pts) Impaired Gait No (0 pts) Mobility Assist Device Used Yes (1 pt) Altered Elimination No (0 pt) Score/Fall Risk Level 0 - 2 = Low Risk Oriented to surroundings, Maintained a safe environment. Abuse screen: Denies threats or abuse. Denies injuries from another. Nutritional screening: No deficits noted. Tuberculosis screening: No symptoms or risk factors identified. Vital Signs: 13:57 BP 132 / 82; Pulse 77; Resp 16; Temp 98; Pulse Ox 100% on R/A; Weight 53.52 kg; Height hb 5 ft. 4 in. ; Pain 8/10; 13:57 Body Mass Index 20.25 (53.52 kg, 162.56 cm) hb 13:57 Pain Scale: Adult hb ED Course: 13:46 Patient arrived in ED. im 13:47 José Tony MD is Attending Physician. ec2 14:00 Triage completed. hb 14:01 Arm band placed on. hb 14:24 CXR XRAY In Process Unspecified. EDMS 14:24 Ribs Right XRAY In Process Unspecified. EDMS 14:24 Pelvis XRAY In Process Unspecified. EDMS 15:21 Мария Macdonald, RN is Primary Nurse. jl7 15:27 Patient has correct armband on for positive identification. Provided Education on: jl7 discharge. 15:27 No provider procedures requiring assistance completed. Patient did not have IV access jl7 during this emergency room visit. Administered Medications: 15:27 Drug: oxyCODONE PO 10 mg PO once Route: PO; jl7 15:45 Follow up: Response: Medication administered at discharge. jl7 Medication: 15:27 VIS not applicable for this client. jl7 Outcome: 15:06 Discharge ordered by . ec2 15:27 Discharged to home via wheelchair, with family, jl7 15:27 Condition: stable 15:27 Discharge instructions given to patient, family, Instructed on discharge instructions, follow up and referral plans. Demonstrated understanding of instructions, follow-up care, 15:45 Instructed on medication usage, Demonstrated understanding of medications, jl7 Prescriptions given X 1, 15:45 Patient left the ED. jl7 Signatures: Dispatcher [employer] EDEleonora Mcintosh RN RN Мария Macdonald RN RN jl7 Shanae Lee José Tony MD MD ec2 Corrections: (The following items were deleted from the chart) 14:01 13:57 BP 132 / 82; Pulse 77bpm; Resp 16bpm; Pulse Ox 100% RA; Temp 98F; hb hb
--- NOTE | 2024-03-24 15:06 | EDPHYS ---
Physician Documentation [facility] Name: Helen Richardson Age: 63 yrs Sex: Female : 1960 Arrival Date: 03/24/2024 Time: 13:44 Bed DX1 Private MD: ED Physician José Tony HPI: 03/24 14:04 This 63 yrs old Female presents to ER via Wheelchair with complaints of Fall ec2 Injury. 14:04 Patient arrives today for evaluation of right-sided pain after a fall. Patient reports ec2 that she is having right chest wall and right rib pain as well as right hip pain. Fall occurred several days ago approximately 4 days ago. No LOC, not on blood thinners. Patient reports she has not taken any medications at all for pain. Historical: - Allergies: 14:00 Iodinated Contrast Media; hb 14:00 Morphine; hb - PMHx: 14:00 High Cholesterol; Hypertension; hb - PSHx: 14:00 colon surgery ileostomy; hb - Immunization history:: Adult Immunizations up to date. - Infectious Disease History:: Denies. - Social history:: Smoking status: Patient denies any tobacco usage or history of. ROS: 14:04 Constitutional: as per hpi ec2 Exam: 14:04 Constitutional: GEN: NAD Head: atraumatic Eyes: EOMI Ears: External ears are ec2 normal. CV: regular rate LUNGS: no respiratory distress ABD: non-distended SKIN: no evidence of rashes MSK: No C/T/L-spine TTP or deformities. Right upper chest wall TTP, right lateral rib TTP, right hip TTP. Good range of motion at all joints. Vital Signs: 13:57 BP 132 / 82; Pulse 77; Resp 16; Temp 98; Pulse Ox 100% on R/A; Weight 53.52 kg; Height hb 5 ft. 4 in. ; Pain 8/10; 13:57 Body Mass Index 20.25 (53.52 kg, 162.56 cm) hb 13:57 Pain Scale: Adult hb MDM: 14:05 Data reviewed: vital signs, nurses notes. ED course: Patient arrives today for ec2 evaluation of right-sided pain after a GLF several days ago. Examination yields MSK findings as above. Suspect contusions, doubt fractures.. 14:15 Medical Screening Exam initiated ec2 15:06 ED course: Chest x-ray independently reviewed and interpreted by me, shows no acute ec2 intrathoracic process. Rest of radiographs negative. Will discharge home. Return precautions given.. 03/24 14:02 Order name: CXR XRAY; Complete Time: 15:05 ec2 03/24 14:02 Order name: Ribs Right XRAY; Complete Time: 15:05 ec2 03/24 14:02 Order name: Pelvis XRAY; Complete Time: 15:05 ec2 Administered Medications: 15:27 Drug: oxyCODONE PO 10 mg PO once Route: PO; jl7 15:45 Follow up: Response: Medication administered at discharge. jl7 Disposition Summary: 03/24/24 15:06 Discharge Ordered Notes: Location: Home ec2 Condition: Stable ec2 Diagnosis - Rib Contusion ec2 - Pain in right hip ec2 Followup: ec2 - With: Private Physician - When: - Reason: Re-evaluation by your physician Discharge Instructions: - Discharge Summary Sheet ec2 - Hip Pain ec2 Forms: - Medication Reconciliation Form ec2 - Antibiotic Education ec2 - Prescription Opioid Use ec2 - Patient Portal Instructions ec2 - Leadership Thank You Letter ec2 Prescriptions: - methocarbamol 500 mg Oral tablet - take 1 tablet ORAL route 4 times per day; 15 tablet; Refills: 0, Product ec2 Selection Permitted Signatures: Dispatcher [employer] Eleonora Oates, RN Мария Kelly RN RN jl7 José Tony MD MD ec2
[2024-03-24] MEDS ORDERED: OXYCODONE *CR* 10 MG TAB PO ONE (15:23)
[2024-03-24 16:13] VITALS: BP 132/82; TEMP 98; O2SAT 100
== END 2024-03-24 15:45 | disposition home or self-care (01) ==
LOC: ER 13:44
DX: S20.211A Contusion of right front wall of thorax, initial encounter (principal); M25.551 Pain in right hip; W18.30XA Fall on same level, unspecified, initial encounter; I10 Essential (primary) hypertension; E78.00 Pure hypercholesterolemia, unspecified
CPT/HCPCS: 71045; 72170

== ENCOUNTER 2024-11-27 10:16 | Day surgery (SDC) | payer OTHER ==
[2024-11-26 10:35] LABS: PT Prothrombin Time 12.7 SECONDS (10-13.0); PTT, Activated Partial Thromb 34.3 SECONDS (27.2-37.4); Protime INR 1.13
[2024-11-27] MEDS: Ringers Lactate 1,000 ML IV ONE (11:03)
[2024-11-27] MEDS ORDERED: MIDAZOLAM HCL 2 MG/2 ML INJ ONE (11:37)
[2024-11-27] MEDS ORDERED: ONDANSETRON 4 MG/2 ML VIAL ONE (11:42)
[2024-11-27] MEDS ORDERED: FENTANYL CITR 100 MCG/2 ML ONE (11:42)
[2024-11-27] MEDS ORDERED: LIDOCAINE 1% MPF 5 ML VIAL ONE (11:42)
[2024-11-27] MEDS ORDERED: EPHEDRINE SULF 50 MG/ML VIAL ONE (12:01)
[2024-11-27] MEDS: CEFAZOLIN SODIUM 2 GM/VIAL ONE (12:05)
[2024-11-27] MEDS: LIDOCAINE HCL/EPINEPHRINE 20 ML MDV ONE (12:10)
--- NOTE | 2024-11-27 12:26 | P.OP ---
Preoperative diagnosis: Removal of Chemotherapy Port Postoperative diagnosis: Removal of Chemotherapy Port Primary procedure: Removal of Chemotherapy Port Anesthesia: GETA + Local Estimated blood loss: <1cc Specimen: Cath for ID Only Findings: Cath removed, no infection Complications: None Transferred to: Recovery Room Condition: Good
--- NOTE | 2024-11-27 12:59 | RAD REPORT ---
EXAM: Chest Single View HISTORY: 64 years Female post picc line insertion COMPARISON: 11/06/2024 FINDINGS: LUNGS/PLEURA: The lungs are clear. No pleural effusions or pneumothorax. No pulmonary edema. CARDIAC/MEDIASTINUM: The cardiac silhouette is within normal limits. UPPER ABDOMEN: No significant abnormality. BONES: No acute abnormality. LINES/TUBES/OTHER: Right subclavian approach PICC with tip overlying the SVC. IMPRESSION: No evidence of acute cardiopulmonary disease. PICC in satisfactory position.
[2024-11-27 13:07] VITALS: O2SAT 99
[2024-11-27] MEDS: ONDANSETRON 4 MG/2 ML VIAL ONE (13:48)
[2024-11-27] MEDS: HYDROCODONE/APAP 5/325 MG TAB ONE (14:25)
[2024-11-27 15:51] VITALS: BP 148/72; TEMP 97.9
--- NOTE | 2024-11-27 21:19 | OP ---
Date of Procedure: 11/27/2024 Surgeon: Sam Pinto MD, Preoperative Diagnosis: Removal of chemotherapy port. Postoperative Diagnosis: Removal of chemotherapy port. Procedure Performed: Removal of chemotherapy port. Anesthesia: General endotracheal plus local with 1% lidocaine. Estimated Blood Loss: 1 cc. Specimen: Cath for ID only. Findings: Catheter removed. No infection evident at the area. Complications: None. Disposition: The patient was transferred to recovery room in good condition. Procedure In Detail: After informed consent was obtained, the patient was brought to the operating r oom, prepped and draped in the usual sterile fashion after adequate anesthesia was achieved. The pat ient was placed in steep Trendelenburg position. I made an incision overlying the previous Port-A-Ca th on the left chest wall down to subcutaneous tissues. I then grasped, accessed the port, and eleva sam into the surgical field. I then cut all 3 Prolene sutures and removed them in their entirety. I then held pressure while the patient remained in steep Trendelenburg position at the insertion site and the exit site. The catheter was then removed, and the patient was then sat up in the sitting up position for approximately 5 minutes. No hemostatic maneuvers were required. I then irrigated the c avity at this point on the chest wall on the left side and ultimately closed it using deep dermal 3-0 Vicryl sutures and the skin was closed with 4-0 Monocryl in a running fashion. Dermabond was placed over top. The patient tolerated the procedure without incident or complication, transferred to PACU in good condition. All counts were correct at the end of the case. KENDRA/KATERINE Voice ID: [id number] Report ID: [id number]
== END 2024-11-27 15:29 | disposition home or self-care (01) ==
LOC: OR 10:16
PROVIDERS: ATTEND Surgery
PROC: 0JPT0WZ Removal of Totally Implantable Vascular Access Device from Trunk Subcutaneous Tissue and Fascia, Open Approach (ICD-10-PCS; principal; 2024-11-27 12:00)
DX: Z45.2 Encounter for adjustment and management of vascular access device (principal); C20 Malignant neoplasm of rectum
CPT/HCPCS: 36415; 85610; 88300; 85730; 71045; 36556; 36590; J2704; J2003; J2250; J3010; J2405 ×2; J7120

== ENCOUNTER 2024-11-28 09:46 | Emergency (ER) | payer OTHER ==
--- OUTSIDE RECORDS SUMMARY | 2024-11-28 09:50 | XMS REPORT | Clinical Summary ---
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 losartan (COZAAR) 50 mg tabletIndicatio ns:hypertension Take 1 tablet (50 mg) by mouth daily. Active lovastatin (MEVACOR) 20 mg tabletIndicatio ns:hyperlipidem ia Take 1 tablet (20 mg) by mouth at bedtime. Active morphine (MS CONTIN) 15 mg ER tabletIndicatio ns:Cancer associated pain Take 1 tablet (15 mg) by mouth every 12 (twelve) hours. 60 tablet 09/20/2023 9:58 AM CDT 4 Active oxyCODONE (ROXICODONE) 10 mg immediate release tabletIndicatio ns:Cancer associated pain Take 1 tablet (10 mg) by mouth every 4 (four) hours as needed (pain and shortness of breath). 90 tablet 09/20/2023 9:58 AM CDT 4 Active polyethylene glycol (MIRALAX) 17 g packetIndicatio ns:Intractable abdominal pain,Colon cancer,Nausea and vomiting Take 17 g by mouth daily. Active pantoprazole (PROTONIX) 40 mg EC tabletIndicatio ns:Intractable abdominal pain,Colon cancer,Nausea and vomiting Take 1 tablet (40 mg) by mouth every morning before breakfast. 30 tablet 09/20/2023 9:58 AM CDT Active topical paste menthol-white petrolatum-zinc oxide (REMEDY CALAZIME) 0.44-20.6 % psteIndications :Intractable abdominal pain,Colon cancer,Nausea and vomiting Apply topically to affected area(s) every 12 (twelve) hours as directed. 113 g Active Active Problems Problem Noted Date Diagnosed Date [...] to liver 09/11/2023 Hypertension 09/11/2023 Hyperlipidemia 09/11/2023 Medical History Medical History Date Comments Hypertension [...] 07/06/2023 4: 11 PM CDT Obstetrics History Plan of Treatment Health Maintenance Due Date Last Done Comments Pneumococcal Vaccine: 50+ Years (1 of 1 - PCV) 013 COVID-19 Vaccine ( season) 2024 Influenza Vaccine (#1) 2024 Insurance GENERIC GENERIC Advance Directives * Full Code (Latest Code Status on File) Date Activated Date Inactivated Comments 09/11/2023 2:50 PM 09/20/2023 1:43 PM
[2024-11-28] MEDS ORDERED: LIDOCAINE 2% W/EPI 1:200,000 MPF 20 ML VIAL IM ONE (10:29)
[2024-11-28] MEDS ORDERED: HEPARIN 500 UNIT/5 ML SYR IV ONE (10:56)
--- NOTE | 2024-11-28 11:05 | ER ---
Nurse's Notes [facility] Name: Helen Richardson Age: 64 yrs Sex: Female : 1960 Arrival Date: 11/28/2024 Time: 09:46 Bed 20 Private MD: Diagnosis: Presence of cardiac and vascular implant and graft, unspecified-PICC;intermediate manager (current) use of anticoagulants Presentation: 11/28 09:59 Chief complaint: Patient states: yesterday they took out my chemo port and they put a iw picc line in and now it is oozing blood, Dr. gillis told her to come to ER for evaluation. Coronavirus screen: At this time, the client does not indicate any symptoms associated with coronavirus-19. Ebola Screen: No symptoms or risks identified at this time. Initial Sepsis Screen: Does the patient meet any 2 criteria? No. Patient's initial sepsis screen is negative. Does the patient have a suspected source of infection? No. Patient's initial sepsis screen is negative. Risk Assessment: Do you want to hurt yourself or someone else? Patient reports no desire to harm self or others. Onset of symptoms was November 28, 2024. 09:59 Method Of Arrival: Ambulatory iw 09:59 Acuity: YOGESH 3 iw Historical: - Allergies: 10:01 Iodinated Contrast Media; iw 10:01 Morphine; iw - PMHx: 10:01 Hypertension; High Cholesterol; iw - PSHx: 10:01 colon surgery ileostomy; iw - Immunization history:: Adult Immunizations. - Infectious Disease History:: Denies. - Social history:: Smoking status: Patient denies any tobacco usage or history of. - Family history:: not pertinent. Screenin:15 [facility] ED Fall Risk Assessment (Adult) History of falling in the last 3 months, me1 including since admission No falls in past 3 months (0 pts) Confusion or Disorientation No (0 pts) Intoxicated or Sedated No (0 pts) Impaired Gait No (0 pts) Mobility Assist Device Used No (0 pt) Altered Elimination No (0 pt) Score/Fall Risk Level 0 - 2 = Low Risk Maintained a safe environment, Provided non-skid footwear, Hourly rounding (assess needs \T\ fall precautionary measures) done. Abuse screen: Denies threats or abuse. Nutritional screening: No deficits noted. Tuberculosis screening: No symptoms or risk factors identified. Assessment: 10:15 General: Appears in no apparent distress. well groomed, well developed, well nourished, me1 Behavior is calm, cooperative, appropriate for age, Reports yesterday they took out my chemo port and they put a picc line in and now it is oozing blood, Dr. gillis told her to come to ER for evaluation. Pain: Complains of pain in right bicep Pain does not radiate. Pain currently is 7 out of 10 on a pain scale. Quality of pain is described as tender, Pain began 1 day ago. Is continuous. Neuro: Level of Consciousness is awake, alert, obeys commands, Oriented to person, place, time, situation, Appropriate for age. Cardiovascular: Patient's skin is warm and dry. Respiratory: Airway is patent Respiratory effort is even, unlabored, Respiratory pattern is regular, symmetrical. GI: No signs and/or symptoms were reported involving the gastrointestinal system. : No signs and/or symptoms were reported regarding the genitourinary system. EENT: No signs and/or symptoms were reported regarding the EENT system. Derm: Skin is healthy with good turgor, Skin is normal. Musculoskeletal: Circulation, motion, and sensation intact. Range of motion: intact in all extremities. Vital Signs: 10:08 BP 140 / 73; Pulse 64; Resp 16; Temp 98.1; Pulse Ox 100% on R/A; Weight 60.78 kg; iw Height 5 ft. 4 in. ; 11:00 BP 105 / 66; Pulse 64; Resp 18; Temp 98.2; Pulse Ox 100% ; me1 10:08 Body Mass Index 23.00 (60.78 kg, 162.56 cm) ED Course: 09:50 Patient arrived in ED. al6 09:58 Jean Cho MD is Attending Physician. kat 10:01 Triage completed. iw 10:02 Arm band placed on. iw 10:11 Andressa Horn, [place] is Primary Nurse. me1 10:15 Patient has correct armband on for positive identification. Bed in low position. Call me1 light in reach. Side rails up X2. Provided Education on: POC. Verbalized understanding.. Client placed on continuous cardiac and pulse oximetry monitoring. NIBP monitoring applied. Pulse ox on. NIBP on. 10:15 No provider procedures requiring assistance completed. IV is patent, is intact, bloody me1 around insertion site under dressing. Changed dressing on right PICC line Flushed right PICC line with 5 ml normal saline with 1 ml Heparin flush in each port. 10:33 Chest Single View In Process Unspecified. EDNE 11:00 Latrell Gillis MD is Referral Physician. [facility] 11:27 Discharged with double lumen PICC line. me1 Administered Medications: 11:18 Not Given (not needed. ): snvoxeols-rwniiyivhcd-8%: (1:100,000) 5 ml 20 ml Infiltration me1 once; to bedside 11:19 Drug: HEParin Flush IVP 500 units IVP once; for Port-a-cath packing Route: IVP; Site: ut1 right upper arm; 11:19 Follow up: Response: No adverse reaction me1 11:19 Drug: HEParin Flush IVP 500 units IVP once; for Port-a-cath packing Route: IVP; Site: [facility] [place] upper arm; 11:19 Follow up: Response: No adverse reaction me1 11:23 Drug: HYDROcodone-acetaminophen PO 5 mg-325 mg 1 tabs PO once Route: PO; me1 11:33 Follow up: Response: No adverse reaction; Pain is decreased me1 Medication: 10:15 VIS not applicable for this client. me1 Outcome: 11:03 Discharge ordered by . [facility] 11:32 Discharged to home ambulatory, with family, me1 11:32 Condition: stable 11:32 Discharge instructions given to patient, family, Instructed on discharge instructions, follow up and referral plans. Demonstrated understanding of instructions, follow-up care, 11:33 Patient left the ED. me1 Signatures: Dispatcher [employer] EDNE Jean Cho MD MD cha Williams, Irene, RN RN Andressa Horn RN RN me1 Norma Aldridge6 Corrections: (The following items were deleted from the chart) 11:23 09:59 Chief complaint: Patient states: yesterday they took out my chemo port and they me1 put a picc line in and now it is oozing blood, Dr. gillis told her to come to ER for evaluation iw
--- NOTE | 2024-11-28 11:05 | EDPHYS ---
Physician Documentation [facility] Name: Helen Richardson Age: 64 yrs Sex: Female : 1960 Arrival Date: 11/28/2024 Time: 09:46 Bed 20 Private MD: Jean Lai HPI: 11/28 10:55 This 64 yrs old Female presents to ER via Ambulatory with complaints of kat piccline. 10:55 The patient or guardian complains of pain, swelling, BLEEDING AT PICC INSERT , NOT kat ACTIVE. The complaints affect the right bicep. Severity of symptoms: At their worst the symptoms were mild. The patient has not experienced similar symptoms in the past. Historical: - Allergies: 10:01 Iodinated Contrast Media; iw 10:01 Morphine; iw - PMHx: 10:01 Hypertension; High Cholesterol; iw - PSHx: 10:01 colon surgery ileostomy; iw - Immunization history:: Adult Immunizations. - Infectious Disease History:: Denies. - Social history:: Smoking status: Patient denies any tobacco usage or history of. - Family history:: not pertinent. ROS: 10:55 Constitutional: Negative for fever, chills, and weight loss, Eyes: Negative for injury, kat pain, redness, and discharge, ENT: Negative for injury, pain, and discharge, Neck: Negative for injury, pain, and swelling, Cardiovascular: Negative for chest pain, palpitations, and edema, Respiratory: Negative for shortness of breath, cough, wheezing, and pleuritic chest pain, Abdomen/GI: Negative for abdominal pain, nausea, vomiting, diarrhea, and constipation, Back: Negative for injury and pain, : Negative for injury, bleeding, discharge, and swelling, Skin: Negative for injury, rash, and discoloration, Neuro: Negative for headache, weakness, numbness, tingling, and seizure, Psych: Negative for depression, anxiety, suicide ideation, homicidal ideation, and hallucinations, Allergy/Immunology: Negative for hives, rash, and allergies, Endocrine: Negative for neck swelling, polydipsia, polyuria, polyphagia, and marked weight changes, Hematologic/Lymphatic: Negative for swollen nodes, abnormal bleeding, and unusual bruising, 10:55 MS/extremity: Positive for pain, swelling, BLOOD UNDER DRESSING, Exam: 10:57 Constitutional: This is a well developed, well nourished patient who is awake, alert, kat and in no acute distress. Head/Face: Normocephalic, atraumatic. Eyes: Pupils equal round and reactive to light, extra-ocular motions intact. Lids and lashes normal. Conjunctiva and sclera are non-icteric and not injected. Cornea within normal limits. Periorbital areas with no swelling, redness, or edema. ENT: Nares patent. No nasal discharge, no septal abnormalities noted. Tympanic membranes are normal and external auditory canals are clear. Oropharynx with no redness, swelling, or masses, exudates, or evidence of obstruction, uvula midline. Mucous membranes moist. Neck: Trachea midline, no thyromegaly or masses palpated, and no cervical lymphadenopathy. Supple, full range of motion without nuchal rigidity, or vertebral point tenderness. No Meningismus. Chest/axilla: Normal chest wall appearance and motion. Nontender with no deformity. No lesions are appreciated. Cardiovascular: Regular rate and rhythm with a normal S1 and S2. No gallops, murmurs, or rubs. Normal PMI, no JVD. No pulse deficits. Respiratory: Lungs have equal breath sounds bilaterally, clear to auscultation and percussion. No rales, rhonchi or wheezes noted. No increased work of breathing, no retractions or nasal flaring. Abdomen/GI: Soft, non-tender, with normal bowel sounds. No distension or tympany. No guarding or rebound. No evidence of tenderness throughout. Back: No spinal tenderness. No costovertebral tenderness. Full range of motion. Skin: Warm, dry with normal turgor. Normal color with no rashes, no lesions, and no evidence of cellulitis. Neuro: Awake and alert, GCS 15, oriented to person, place, time, and situation. Cranial nerves II-XII grossly intact. Motor strength 5/5 in all extremities. Sensory grossly intact. Cerebellar exam normal. Normal gait. Psych: Awake, alert, with orientation to person, place and time. Behavior, mood, and affect are within normal limits. 10:57 Musculoskeletal/extremity: ROM: no acute changes, intact in all extremities, full active range of motion, Circulation is intact in all extremities. Sensation intact. Compartment Syndrome exam of affected extremity: is normal. Vital Signs: 10:08 BP 140 / 73; Pulse 64; Resp 16; Temp 98.1; Pulse Ox 100% on R/A; Weight 60.78 kg; iw Height 5 ft. 4 in. ; 11:00 BP 105 / 66; Pulse 64; Resp 18; Temp 98.2; Pulse Ox 100% ; me1 10:08 Body Mass Index 23.00 (60.78 kg, 162.56 cm) iw MDM: 09:58 Medical Screening Exam initiated [facility] 10:57 Differential diagnosis: contusion, abrasion. Data reviewed: vital signs, nurses notes, [facility] radiologic studies, plain films. Consideration of Admission/Observation Escalation of care including admission/observation considered. I considered the following discharge prescriptions or medication management in the emergency department Medications were administered in the Emergency Department. See MAR. Care significantly affected by the following chronic conditions: Hypertension, HIGH CHLESTEROL. 11/28 10:19 Order name: Chest Single View EDMS 11/28 10:07 Order name: Dressing - Wound; Complete Time: 11:18 [facility] 11/28 10:07 Order name: Gloves, Sterile; Complete Time: 10:32 [facility] 11/28 10:07 Order name: Prolene, Sutures; Complete Time: 10:32 [facility] 11/28 10:07 Order name: Setup Suture Tray; Complete Time: 10:32 [facility] 11/28 10:52 Order name: Wound dressing: REDRESS/FLUSH; Complete Time: 11:18 [facility] Administered Medications: 11:18 Not Given (not needed. ): toryssfgp-yxpwidenlrb-7%: (1:100,000) 5 ml 20 ml Infiltration me1 once; to bedside 11:19 Drug: HEParin Flush IVP 500 units IVP once; for Port-a-cath packing Route: IVP; Site: me1 right upper arm; 11:19 Follow up: Response: No adverse reaction me1 11:19 Drug: HEParin Flush IVP 500 units IVP once; for Port-a-cath packing Route: IVP; Site: me1 right upper arm; 11:19 Follow up: Response: No adverse reaction me1 11:23 Drug: HYDROcodone-acetaminophen PO 5 mg-325 mg 1 tabs PO once Route: PO; me1 11:33 Follow up: Response: No adverse reaction; Pain is decreased me1 Disposition Summary: 11/28/24 11:03 Discharge Ordered Notes: Location: Home kat Problem: new kat Symptoms: have improved kat Condition: Stable kat Diagnosis - Presence of cardiac and vascular implant and graft, unspecified - PICC 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 kat Followup: kat - With: Private Physician - When: 2 - 3 days - Reason: Recheck today's complaints, Continuance of care, Re-evaluation by your physician Followup: kat - With: Latrell Pinto MD - When: 2 - 3 days - Reason: Recheck today's complaints, Re-evaluation by your physician Discharge Instructions: - Discharge Summary Sheet kat - PICC Insertion, Care After kat - PICC Insertion kat Forms: - Medication Reconciliation Form kat - Antibiotic Education kat - Prescription Opioid Use kat - Patient Portal Instructions kat - Leadership Thank You Letter kat Signatures: Dispatcher [employer] Jean Vang MD MD cha Williams, Irene, RN RN iw Andressa Horn RN RN me1 Corrections: (The following items were deleted from the chart) 10:19 10:08 Chest Pa And Lat (2 Views)+[email or web address] ordered. VICKIE JOHNSTON
[2024-11-28] MEDS ORDERED: HYDROCODONE/APAP 5/325 MG TAB ONE (11:21)
--- NOTE | 2024-11-28 16:27 | RAD REPORT ---
EXAMINATION: ONE VIEW CHEST XR CLINICAL INDICATION: POST PICC TECHNIQUE: Frontal chest projection is submitted. Examination is limited by patient positioning and t echnique. COMPARISON: No prior exam. FINDINGS: Right-sided PICC line has its tip in SVC. Lungs are grossly clear. The heart is upper limit of normal in size. No displaced fractures identified.
== END 2024-11-28 11:33 | disposition home or self-care (01) ==
LOC: ER 09:46
DX: Z45.2 Encounter for adjustment and management of vascular access device (principal); Z79.01 Long term (current) use of anticoagulants
CPT/HCPCS: 71045; 96374; 99284; J1642

== ENCOUNTER 2024-12-08 10:45 | Emergency (ER) | payer OTHER ==
--- OUTSIDE RECORDS SUMMARY | 2024-12-08 10:48 | XMS REPORT | Clinical Summary ---
Author Name Unknown Organization [facility] Address [address] [place] [address] Care Team Providers Care Investigator Vice Name Role Phone Unavailable Primary Care Provider [...]
--- NOTE | 2024-12-08 12:27 | RAD REPORT ---
EXAMINATION: US BILATERAL UPPER EXTREMITY VENOUS DOPPLER CLINICAL INDICATION: Pain;Swelling TECHNIQUE: Complete bilateral duplex sonography of the BILATERAL upper extremity veins was performed. The examination included compression for vein patency, color Doppler imaging and flow augmentation in response to distal compression of the internal jugular, brachiocephalic, subclavian, axillary, bra chial, radial, ulnar, cephalic and basilic veins. COMPARISON: No prior exam. FINDINGS: Duplex sonography testing of the veins of the BILATERAL upper extremity was performed. Color flow hardy ging shows all veins to be compressible with [id number] color filling. Pulsatile and phasic flow is present within all upper extremity deep and superficial veins examined. IMPRESSION: There is no deep vein or superficial vein thrombosis.
[2024-12-08] MEDS ORDERED: HYDROCODONE/APAP 5/325 MG TAB ONE (12:31)
[2024-12-08] MEDS ORDERED: ONDANSETRON 4 MG (ODT) TAB ONE (12:33)
--- NOTE | 2024-12-08 12:42 | ER ---
Nurse's Notes [facility] Name: Helen Richardson Age: 64 yrs Sex: Female : 1960 Arrival Date: 12/08/2024 Time: 10:45 Bed 11 Private MD: Diagnosis: Pain in right arm Presentation: 12/08 11:19 Chief complaint: Patient's son or daughter states: PT HAD PICC LINE PLACED FOR CHEMO dd2 USE 11/27/2024, PT CAME HERE ON 11/28 FOR PICC DRESSING CHANGE BUT SON FEELS THE LINE IS OUT FURTHER THAN WHEN PLACED. PT C/O PAIN TO RT ARM TO RT SHOULDER, SWELLING TO PICC SITE AND REDNESS. Coronavirus screen: At this time, the client does not indicate any symptoms associated with coronavirus-19. Ebola Screen: No symptoms or risks identified at this time. Initial Sepsis Screen: Does the patient meet any 2 criteria? No. Patient's initial sepsis screen is negative. Does the patient have a suspected source of infection? No. Patient's initial sepsis screen is negative. Risk Assessment: Do you want to hurt yourself or someone else? Patient reports no desire to harm self or others. Onset of symptoms was November 28, 2024. 11:19 Method Of Arrival: Ambulatory dd2 11:19 Acuity: YOGESH 3 dd2 Triage Assessment: 11:22 General: Appears in no apparent distress. uncomfortable, Behavior is calm, cooperative, dd2 appropriate for age. Pain: Complains of pain in right arm Pain radiates to anterior aspect of right shoulder. Historical: - Allergies: 11:22 Iodinated Contrast Media; dd2 11:22 Morphine; dd2 - PMHx: 11:22 High Cholesterol; Hypertension; COLON CANCER (Hypertension); dd2 - PSHx: 11:22 colon surgery ileostomy; dd2 - Immunization history:: Adult Immunizations up to date. - Infectious Disease History:: Denies. - Social history:: Smoking status: Patient denies any tobacco usage or history of. Assessment: 12:45 General: Appears in no apparent distress. Behavior is calm, cooperative. Neuro: GCS 15. hb Cardiovascular: Patient's skin is warm and dry. Respiratory: Respiratory effort is even, unlabored, Respiratory pattern is regular, symmetrical. Vital Signs: 11:19 BP 154 / 85; Pulse 67; Resp 16; Temp 98.3; Pulse Ox 100% on R/A; Pain 7/10; dd2 11:19 Pain Scale: Adult dd2 ED Course: 10:47 Patient arrived in ED. im 10:51 Young Galeas MD is Attending Physician. dd2 10:51 Narciso Caldwell, [facility] dd2 11:22 Triage completed. dd2 11:22 Arm band placed on left wrist. dd2 12:22 UPPER EXTREMITY VENOUS BILAT In Process Unspecified. EDMS 13:15 Changed dressing on right PICC line. hb Administered Medications: 12:45 Drug: HYDROcodone-acetaminophen PO 5 mg-325 mg 2 tabs PO once Route: PO; hb 12:45 Drug: Ondansetron PO 4 mg PO once Route: PO; hb 12:45 CANCELLED (Duplicate Order): ondansetron4 mg PO once hb Outcome: 12:42 Discharge ordered by MD. dr5 12:46 Discharged to home via wheelchair, with family, hb 12:46 Condition: stable 12:46 Discharge instructions given to patient, family, Instructed on discharge instructions, follow up and referral plans. medication usage, Demonstrated understanding of instructions, follow-up care, medications, Prescriptions given X 2, 13:39 Patient left the ED. hb Signatures: Dispatcher [employer] EDMS Eleonora No, [place] RN Shanae Lee DIANA RN RN dd2 Narciso Caldwell, OFFICE DIRECTOR-C OFFICE DIRECTOR-[id number]
--- NOTE | 2024-12-08 12:42 | EDPHYS ---
Physician Documentation [facility] Name: Helen Richardson Age: 64 yrs Sex: Female : 1960 Arrival Date: 12/08/2024 Time: 10:45 Bed 11 Private MD: ED Physician Young Galeas HPI: 12/08 12:43 This 64 yrs old Female presents to ER via Ambulatory with complaints of PICC dr5 Line problem. 12:43 Onset: The symptoms/episode began/occurred 3 day(s) ago. Patient is a 64-year-old dr5 female with history of hyperlipidemia, hypertension, colon cancer being treated with chemotherapy through right PICC line. Patient reports redness and swelling to arm pain that started 3 days ago. Patient denies chest pain, shortness of breath, abdominal pain, nausea, vomiting, diarrhea, or fever. Patient reports that the dressing was changed yesterday but would like to have it changed again today because because we have the right equipment. Patient currently on Eliquis 5 mg twice daily. Historical: - Allergies: 11:22 Iodinated Contrast Media; dd2 11:22 Morphine; dd2 - PMHx: 11:22 High Cholesterol; Hypertension; COLON CANCER (Hypertension); dd2 - PSHx: 11:22 colon surgery ileostomy; dd2 - Immunization history:: Adult Immunizations up to date. - Infectious Disease History:: Denies. - Social history:: Smoking status: Patient denies any tobacco usage or history of. ROS: 12:43 Constitutional: as per hpi dr5 Exam: 12:43 Constitutional: This is a well developed, well nourished patient who is awake, alert, dr5 and in no acute distress. Head/Face: Normocephalic, atraumatic. Eyes: Pupils equal round and reactive to light, extra-ocular motions intact. Lids and lashes normal. Conjunctiva and sclera are non-icteric and not injected. Cornea within normal limits. Periorbital areas with no swelling, redness, or edema. Neck: Trachea midline, no thyromegaly or masses palpated, and no cervical lymphadenopathy. Supple, full range of motion without nuchal rigidity, or vertebral point tenderness. No Meningismus. Chest/axilla: Normal chest wall appearance and motion. Nontender with no deformity. No lesions are appreciated. Cardiovascular: Regular rate and rhythm with a normal S1 and S2. Normal PMI, no JVD. No pulse deficits. Respiratory: Lungs have equal breath sounds bilaterally, clear to auscultation. No rales, rhonchi or wheezes noted. No increased work of breathing, no retractions or nasal flaring. Abdomen/GI: Soft, non-tender, non-distended Back: No spinal tenderness. No costovertebral tenderness. Full range of motion. Skin: Warm, dry with normal turgor. Normal color with no rashes, no lesions, and no evidence of cellulitis. Neuro: Awake and alert, GCS 15, oriented to person, place, time, and situation. Cranial nerves II-XII grossly intact. Motor strength 5/5 in all extremities. Sensory grossly intact. Cerebellar exam normal. Normal gait. 12:43 Musculoskeletal/extremity: Extremities: grossly normal except: noted in the right arm: ROM: full active range of motion, Circulation is intact in all extremities. Sensation intact. Mild swelling noted to right upper arm. No tenderness to palpation.. Vital Signs: 11:19 BP 154 / 85; Pulse 67; Resp 16; Temp 98.3; Pulse Ox 100% on R/A; Pain 7/10; dd2 11:19 Pain Scale: Adult dd2 Procedures: 13:25 Performed Sterile dressing change of right PICC line. Assisted Eleonora with sterile dr5 dressing change. I remained sterile during dressing change and placed new dressing on PICC line. I also flushed both ports with good blood return as well as flush without resistance.. MDM: 10:53 Medical Screening Exam initiated dr5 13:25 Differential diagnosis: PICC line dressing change encounter, obstructed PICC line, DVT. dr5 Data reviewed: vital signs, nurses notes. Consideration of Admission/Observation Escalation of care including admission/observation considered. Escalation considered patient found to have blood clot. I considered the following discharge prescriptions or medication management in the emergency department I discussed and recommended Over The Counter medications, Medications were administered in the Emergency Department. See MAR. Historians other than the Patient: Daughter/Son: Son. Care significantly affected by the following chronic conditions: Hyperlipidemia, hypertension, cancer. Care significantly affected by the following Social Determinants of Health: Poor access to healthcare and/or lack of insurance, Poor access to transportation, Problems related to employment. Counseling: I had a detailed discussion with the patient and/or guardian regarding the historical points, exam findings, and any diagnostic results supporting the discharge/admit diagnosis, the presence of at least one elevated blood pressure reading (>120/80) during this emergency department visit, radiology results, the need for outpatient follow up, for definitive care, a family practitioner, to return to the emergency department if symptoms worsen or persist or if there are any questions or concerns that arise at home. Medication response: Neri Barfield. Response to treatment: the patient's symptoms have resolved after treatment, the patient is now symptom free. Special discussion: I discussed with the patient/guardian in detail that at this point there is no indication for admission to the hospital. It is understood, however, that if the symptoms persist or worsen the patient needs to return immediately for re-evaluation. Based on the history and exam findings, there is no indication for further emergent testing or inpatient evaluation. I discussed with the patient/guardian the need to see the primary care provider for further evaluation of the symptoms. ED course: Recommend patient follow-up primary care doctor as well as call all home health agencies to have home health set up this week. Dressing change completed in ER. No DVT noted on ultrasound. Patient pain has resolved. Strict ER precautions given. All question answered.. 12/08 11:37 Order name: UPPER EXTREMITY VENOUS BILAT; Complete Time: 12:30 EDMS 12/08 13:25 Order name: Wound dressing: PICC line dressing change dr5 Administered Medications: 12:45 Drug: HYDROcodone-acetaminophen PO 5 mg-325 mg 2 tabs PO once Route: PO; hb 12:45 Drug: Ondansetron PO 4 mg PO once Route: PO; hb 12:45 CANCELLED (Duplicate Order): ondansetron4 mg PO once hb Disposition Summary: 12/08/24 12:42 Discharge Ordered Notes: Location: Home dr5 Condition: Stable dr5 Diagnosis - Pain in right arm dr5 Followup: dr5 - With: Emergency Department - When: As needed - Reason: Worsening of condition Followup: dr5 - With: Private Physician - When: 1 - 2 days - Reason: Recheck today's complaints, Continuance of care, Re-evaluation by your physician Discharge Instructions: - Discharge Summary Sheet dr5 - Musculoskeletal Pain dr5 - PICC Insertion, Care After dr5 Forms: - Medication Reconciliation Form dr5 - Prescription Opioid Use dr5 - Patient Portal Instructions dr5 - Leadership Thank You Letter dr5 Prescriptions: - Zofran 4 mg Oral Tablet - take 1 tablet ORAL route every 12 hours As needed; 20 tablet; Refills: 0, dr5 Product Selection Permitted - Tramadol 50 mg Oral tablet - take 1 tablet ORAL route every 8 hours As needed as needed; 20 tablet; Refills: dr5 0, Product Selection Permitted Signatures: Dispatcher [employer] EDUT Eleonora No RN RN ANISH SAL RN RN dd2 Narciso Caldwell, ROUTE [employer]IDER SUPERVISOR-C ROUTE RIDER SUPERVISOR-Cdr5 Corrections: (The following items were deleted from the chart) 11:25 11:25 Extrem Venous W Compression [id number] ordered. EDMS EDMS 12:45 12:45 Ondansetron PO 4 mg PO once ordered. hb hb 12:47 12:43 Patient is a 64-year-old female with history of hyperlipidemia, hypertension, dr5 colon cancer being treated with chemotherapy through right PICC line. Patient reports redness and swelling to arm pain that started 3 days ago. Patient denies chest pain, shortness of breath, abdominal pain, nausea, vomiting, diarrhea, or fever. Patient reports that the dressing was changed yesterday but would like to have it changed again today because because we have the right equipment.. dr5
[2024-12-08 17:35] VITALS: BP 154/85; TEMP 98.3; O2SAT 100
== END 2024-12-08 13:39 | disposition home or self-care (01) ==
LOC: ER 10:45
DX: Z45.2 Encounter for adjustment and management of vascular access device (principal); M79.601 Pain in right arm
CPT/HCPCS: 93970; 99283; Q0162